=== PATIENT | male | born 1995 | race Hispanic/Latino ===

== ENCOUNTER 2018-05-08 21:40 | Emergency (ER) | payer SELFPAY ==
[2018-05-08] MEDS ORDERED: TETANUS/DIPHTHERIA TOXOID [ADULT] 0.5 ML VIAL IM ONE (21:53)
== END 2018-05-08 23:27 | disposition home or self-care (01) ==
LOC: EDH 21:40
DX: S91.331A Puncture wound without foreign body, right foot, initial encounter (principal); E11.9 Type 2 diabetes mellitus without complications; X58.XXXA Exposure to other specified factors, initial encounter; Y93.89 Activity, other specified; Y92.89 Other specified places as the place of occurrence of the external cause; Y99.8 Other external cause status
CPT/HCPCS: 73630; 90471; 90714

== ENCOUNTER 2019-03-23 16:43 | Inpatient (IN) | payer SELFPAY ==
[~2019-03-23] VITALS: Ht 167.6 cm; Wt 91.7 kg
[2019-03-23 17:36] LABS: BASOPHILS % (AUTO) 0.3 % (0.0-5.0); EOSINOPHILS % (AUTO) 0.2 % (0.0-8.0); HEMATOCRIT 46.1 % (42-54); LYMPHOCYTES % (AUTO) 13.8 % (21.0-51.0); MEAN CORPUSCULAR VOLUME 89.3 fL (79-99); MONOCYTES % (AUTO) 3.8 % (3.0-13.0); NEUTROPHILS % (AUTO) 81.9 % (40.0-77.0); NUCLEATED RED BLOOD CELLS 0.1 % (0.0-0.19); PLATELET COUNT (AUTO) 279 K/uL (130-400); RED BLOOD CELL COUNT(AUTO) 5.16 MIL/uL (4.50-6.20); RED CELL DISTRIBUTION WIDTH 14.2 % (11.0-15.5); WHITE BLOOD COUNT (AUTO) 20.1 K/uL (4.8-10.8)
[2019-03-23] MEDS ORDERED: SODIUM CHLORIDE 0.9% 1000ML 1,000 ML IV ONE ×3 (17:36→22:20)
[2019-03-23] MEDS ORDERED: ONDANSETRON HCL 4 MG/2 ML VIAL ONE (17:36)
[2019-03-23 17:39] LABS: APPEARANCE,URINE Clear (CLEAR); BILIRUBIN,URINE Negative (NEGATIVE); COLOR,URINE Yellow (YELLOW); GLUCOSE, URINE (UA) >=1000 mg/dL (NEGATIVE); KETONES,URINE >=160 mg/dL (NEGATIVE); LEUKOCYTE ESTERASE ,URINE Negative (NEGATIVE); NITRATE,URINE Negative (NEGATIVE); OCCULT BLOOD,URINE Moderate (NEGATIVE); PROTEIN,URINE POS 2+ mg/dL (NEGATIVE); UROBILINOGEN,URINE 0.2 mg/dL (0.2-1.0)
[2019-03-23 17:51] LABS: POTASSIUM 4.2 mmol/L (3.5-5.1)
[2019-03-23 17:54] LABS: MEAN CORPUSCULAR HEMOGLOBIN 35.4 pg (27.0-33.0); MEAN CORPUSCULAR HGB CONC 39.8 g/dL (32.0-36.0)
[2019-03-23 17:57] LABS: BILIRUBIN,TOTAL 1.1 mg/dL (0.2-1.0)
[2019-03-23 18:04] LABS: BACTERIA,URINE Rare /HPF (None Seen); SQUAMOUS EPITHELIAL CELL,UR Few /HPF (0-2); WBC,URINE 0-1 /HPF (0-1)
[2019-03-23 18:55] LABS: CREATININE 0.8 mg/dL (0.5-1.5); TOTAL PROTEIN, SERUM 7.6 g/dL (6.0-8.3)
[2019-03-23 18:57] LABS: ALBUMIN 4.2 g/dL (3.5-5.0)
[2019-03-23] MEDS ORDERED: KETOROLAC TROMETHAMINE 30MG/ML ONE (18:58)
[2019-03-23 19:13] LABS: ABG BASE EXCESS -6.4 mmol/L (-2.0-3.0); ABG HCO3 17.7 mmol/L (21.0-28.0); ABG OXYGEN SATURATION 96.3 % (95.0-99.0); ABG PCO2 32 mmHg (35-48)
[2019-03-23] MEDS: SODIUM CHLORIDE 0.9% 1000ML 1,000 ML IV SCH (21:41)
[2019-03-23] MEDS ORDERED: MORPHINE SULFATE 2 MG/ML 1ML SYG IM PRN (21:45)
[2019-03-23 22:12] LABS: HEMOGLOBIN A1C 10.7 % (4.0-6.0)
[2019-03-23] MEDS ORDERED: MORPHINE SULFATE 2 MG/ML 1ML SYG ONE (22:20)
[2019-03-23 23:00] VITALS: BP 145/81
[2019-03-23] MEDS ORDERED: INSU100I14 SQ (23:35)
[2019-03-23] MEDS ORDERED: METF-527 PO (23:35)
[2019-03-23] MEDS ORDERED: INSU10VI2 SQ (23:37)
[2019-03-24 04:00] VITALS: BP 126/71
[2019-03-24 04:34] LABS: BASOPHILS % (AUTO) 0.7 % (0.0-5.0); EOSINOPHILS % (AUTO) 0.4 % (0.0-8.0); HEMATOCRIT 42.3 % (42-54); LYMPHOCYTES % (AUTO) 21.9 % (21.0-51.0); MEAN CORPUSCULAR HEMOGLOBIN 34.8 pg (27.0-33.0); MEAN CORPUSCULAR HGB CONC 39.1 g/dL (32.0-36.0); MONOCYTES % (AUTO) 5.1 % (3.0-13.0); NEUTROPHILS % (AUTO) 71.9 % (40.0-77.0); NUCLEATED RED BLOOD CELLS 0.1 % (0.0-0.19); PLATELET COUNT (AUTO) 232 K/uL (130-400); RED BLOOD CELL COUNT(AUTO) 4.76 MIL/uL (4.50-6.20); RED CELL DISTRIBUTION WIDTH 14.5 % (11.0-15.5); WHITE BLOOD COUNT (AUTO) 17.1 K/uL (4.8-10.8)
[2019-03-24 04:59] LABS: ALBUMIN 3.2 g/dL (3.5-5.0); BILIRUBIN,TOTAL 0.7 mg/dL (0.2-1.0); CREATININE 0.7 mg/dL (0.5-1.5); POTASSIUM 4.3 mmol/L (3.5-5.1); TOTAL PROTEIN, SERUM 7.6 g/dL (6.0-8.3)
[2019-03-24] MEDS: INSULIN HUMULIN R 100 UNIT/ML 3ML SQ SCH ×4 (06:48→21:27)
[2019-03-24 07:00] VITALS: BP 133/65
[2019-03-24] MEDS ORDERED: FLU VACC QUAD 2019-20(6MOS UP) 60 MCG/0.5 ML VIAL IM SCH (09:00)
[2019-03-24] MEDS: FAMOTIDINE/PF 20 MG/2 ML VIAL IV SCH ×2 (09:25→19:55)
[2019-03-24] MEDS: ENOXAPARIN SODIUM 30 MG/0.3 ML SQ SCH (09:25)
[2019-03-24] MEDS: SODIUM CHLORIDE 0.9% 1000ML 1,000 ML IV SCH (09:30)
[2019-03-24 11:00] VITALS: BP 131/74
[2019-03-24 13:47] LABS: CHOLESTEROL 162 mg/dL (<200); HDL CHOLESTEROL 33 mg/dL (29-71); LDL DIRECT 36 mg/dL (0-99); TRIGLYCERIDES 594 mg/dL (30-200)
[2019-03-24] MEDS: CEFTRIAXONE SODIUM 1 GM IVP SCH (14:47)
[2019-03-24] MEDS: LACTATED RINGERS 1000ML 1,000 ML IV SCH ×2 (14:48→19:55)
[2019-03-24 16:00] VITALS: BP 137/72
--- NOTE | 2019-03-24 16:00 | NUR ---
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 FAMILY ATTENTIVE TO NEEDS, MOM STATES TAKES TO FREE ROBERT IN [facility] OF [facility]. SELF PAY PKT DISCUSSED DIABETIC SELF MANAGEMENT DISCUSSED CM TO FOLLOW NEEDED Addendum: 03/24/19 at 1946 by MARQUIS NEVAREZ RN CM Amended: Links added.
[2019-03-24 19:00] VITALS: BP 126/67
[2019-03-25] VITALS: BP 137/77
[2019-03-25] MEDS: LACTATED RINGERS 1000ML 1,000 ML IV SCH ×2 (02:40→11:12)
[2019-03-25 04:00] VITALS: BP 121/71
[2019-03-25 05:53] LABS: HEMATOCRIT 42.7 % (42-54); MEAN CORPUSCULAR HGB CONC 34.4 g/dL (32.0-36.0); MEAN CORPUSCULAR VOLUME 90.1 fL (79-99); PLATELET COUNT (AUTO) 158 K/uL (130-400); RED BLOOD CELL COUNT(AUTO) 4.73 MIL/uL (4.50-6.20); RED CELL DISTRIBUTION WIDTH 14.4 % (11.0-15.5); WHITE BLOOD COUNT (AUTO) 12.6 K/uL (4.8-10.8)
[2019-03-25 06:03] LABS: CREATININE 0.8 mg/dL (0.5-1.5)
[2019-03-25] MEDS: INSULIN HUMULIN R 100 UNIT/ML 3ML SQ SCH ×2 (06:40→11:30)
[2019-03-25 07:00] VITALS: BP 123/65
[2019-03-25] MEDS: FAMOTIDINE/PF 20 MG/2 ML VIAL IV SCH (09:00)
[2019-03-25] MEDS: ENOXAPARIN SODIUM 30 MG/0.3 ML SQ SCH (09:00)
[2019-03-25 11:00] VITALS: BP 111/69
[2019-03-25] MEDS: CEFTRIAXONE SODIUM 1 GM IVP SCH (14:53)
[2019-03-25 16:00] VITALS: BP 138/81
[2019-03-25] MEDS ORDERED: NPH,100V11 SQ (18:06)
[2019-03-25] MEDS ORDERED: FENO145T37 PO (18:06)
[2019-03-25] MEDS ORDERED: INSREG SQ (18:06)
== END 2019-03-25 19:38 | disposition home or self-care (01) | DRG 439 ==
LOC: EDH 16:43 → EDHIP 16:44 → 3AH 22:31
PROVIDERS: ADMIT Internal Medicine; ATTEND Internal Medicine
DX: K85.90 Acute pancreatitis without necrosis or infection, unspecified (principal); E87.1 Hypo-osmolality and hyponatremia; E11.65 Type 2 diabetes mellitus with hyperglycemia; E66.9 Obesity, unspecified; Z79.4 Long term (current) use of insulin; Z68.32 Body mass index [BMI] 32.0-32.9, adult
CPT/HCPCS: 36415; 36600; 74176; 80048; 80053; 80061; 81001; 82010; 82150; 82803; 82948; 83036; 83690; 85025; 85027; 87804; G0378; J0696; J1650; J1815; J1885; J2405; J3490; J7030; J7120; Q2036

== ENCOUNTER 2019-03-28 14:52 | Emergency (ER) | payer OTHER ==
[~2019-03-28 14:52] MED LIST: FENO145T37 PO; INSREG SQ; METF-527 PO; NPH,100V11 SQ
[2019-03-28] MEDS ORDERED: DiphenhydrAMINE HCL 50 MG/ML VIAL ONE (15:26)
[2019-03-28] MEDS ORDERED: SODIUM CHLORIDE 0.9% 1000ML 1,000 ML IV ONE ×2 (15:26→16:56)
[2019-03-28] MEDS ORDERED: PROCHLORPERAZINE EDISYLATE 10 MG/2 ML VIAL ONE (15:26)
[2019-03-28 15:29] LABS: APPEARANCE,URINE Clear (CLEAR); BILIRUBIN,URINE Negative (NEGATIVE); COLOR,URINE Yellow (YELLOW); GLUCOSE, URINE (UA) >=1000 mg/dL (NEGATIVE); KETONES,URINE >=80 mg/dL (NEGATIVE); LEUKOCYTE ESTERASE ,URINE Trace (NEGATIVE); NITRATE,URINE Negative (NEGATIVE); OCCULT BLOOD,URINE Negative (NEGATIVE); PROTEIN,URINE POS 1+ mg/dL (NEGATIVE)
[2019-03-28 15:35] LABS: AMPHET/METH SCREEN,URINE NEGATIVE (NEGATIVE); BARBITURATE SCREEN, URINE NEGATIVE (NEGATIVE); BENZODIAZEPINES SCREEN,URINE NEGATIVE (NEGATIVE); CANNABINOID SCREEN,URINE NEGATIVE (NEGATIVE); COCAINE SCREEN,URINE NEGATIVE (NEGATIVE); OPIATE SCREEN,URINE NEGATIVE (NEGATIVE); PHENCYCLIDINE SCREEN,URINE NEGATIVE (NEGATIVE)
[2019-03-28 15:39] LABS: BASOPHILS % (AUTO) 0.4 % (0.0-5.0); EOSINOPHILS % (AUTO) 0.2 % (0.0-8.0); HEMATOCRIT 46.5 % (42-54); LYMPHOCYTES % (AUTO) 10.5 % (21.0-51.0); MEAN CORPUSCULAR HEMOGLOBIN 30.4 pg (27.0-33.0); MEAN CORPUSCULAR HGB CONC 34.5 g/dL (32.0-36.0); MEAN CORPUSCULAR VOLUME 88.2 fL (79-99); MONOCYTES % (AUTO) 3.4 % (3.0-13.0); NEUTROPHILS % (AUTO) 85.5 % (40.0-77.0); PLATELET COUNT (AUTO) 204 K/uL (130-400); RED BLOOD CELL COUNT(AUTO) 5.27 MIL/uL (4.50-6.20); RED CELL DISTRIBUTION WIDTH 14.1 % (11.0-15.5); WHITE BLOOD COUNT (AUTO) 13.8 K/uL (4.8-10.8)
[2019-03-28 16:02] LABS: CREATININE 0.5 mg/dL (0.5-1.5); POTASSIUM 3.7 mmol/L (3.5-5.1)
[2019-03-28 16:06] LABS: ALBUMIN 3.7 g/dL (3.5-5.0); BILIRUBIN,TOTAL 0.5 mg/dL (0.2-1.0); TOTAL PROTEIN, SERUM 8.3 g/dL (6.0-8.3)
[2019-03-28 16:34] LABS: BACTERIA,URINE Few /HPF (None Seen); CALCIUM OXALATE CRYSTALS,UR Few /LPF (None Seen); RBC,URINE 0-1 /HPF (0-1); SQUAMOUS EPITHELIAL CELL,UR Few /HPF (0-2)
[2019-03-28 17:02] LABS: ABG OXYGEN SATURATION 87.6 % (95.0-99.0); BASE EXCESS,VENOUS BLOOD GAS -5.3 (-2.0-3.0); HCO3,VENOUS BLOOD GAS 19.7 (21.0-28.0); PCO2,VENOUS BLOOD GAS 37 (35-48); PH,VENOUS BLOOD GAS 7.348 (7.350-7.450)
== END 2019-03-28 18:01 | disposition home or self-care (01) ==
LOC: EDH 14:52
DX: E11.65 Type 2 diabetes mellitus with hyperglycemia (principal); R11.2 Nausea with vomiting, unspecified; Z79.4 Long term (current) use of insulin; Z72.0 Tobacco use
CPT/HCPCS: 36415; 36600; 80053; 80305; 81001; 82150; 82803; 83690; 85025; 96361; 96374; 96375; 99284; J0780; J1200; J7030 ×2

== ENCOUNTER 2019-09-20 16:03 | Inpatient (IN) | payer SELFPAY ==
[~2019-09-20] VITALS: Ht 167.6 cm; Wt 89.9 kg
[~2019-09-20 16:03] MED LIST changes: +FENO145T26 PO; -FENO145T37 PO
[2019-09-20] MEDS ORDERED: METOCLOPRAMIDE 10 MG/2 ML VIAL ONE (16:20)
[2019-09-20] MEDS ORDERED: FAMOTIDINE/PF 20 MG/2 ML VIAL IV ONE ×2 (16:21→20:21)
[2019-09-20] MEDS ORDERED: ONDANSETRON HCL 4 MG/2 ML VIAL ONE ×2 (16:21→22:05)
[2019-09-20] MEDS ORDERED: SODIUM CHLORIDE 0.9% 1000ML 1,000 ML IV ONE ×4 (16:22→21:48)
[2019-09-20 17:03] LABS: APPEARANCE,URINE Clear (CLEAR); BILIRUBIN,URINE Negative (NEGATIVE); COLOR,URINE Yellow (YELLOW); GLUCOSE, URINE (UA) >=1000 mg/dL (NEGATIVE); KETONES,URINE >=160 mg/dL (NEGATIVE); LEUKOCYTE ESTERASE ,URINE Negative (NEGATIVE); NITRATE,URINE Negative (NEGATIVE); OCCULT BLOOD,URINE Small (NEGATIVE); PROTEIN,URINE 300 mg/dL (NEGATIVE); UROBILINOGEN,URINE 0.2 mg/dL (0.2-1.0)
[2019-09-20 17:06] LABS: POTASSIUM 4.8 mmol/L (3.5-5.1)
[2019-09-20 17:27] LABS: ABG OXYGEN SATURATION 41.5 % (95.0-99.0); BASE EXCESS,VENOUS BLOOD GAS -22.6 (-2.0-3.0); HCO3,VENOUS BLOOD GAS 6.8 (21.0-28.0); PCO2,VENOUS BLOOD GAS 26 (35-48); PH,VENOUS BLOOD GAS 7.038 (7.350-7.450)
[2019-09-20 17:27] LABS: BACTERIA,URINE Rare /HPF (None Seen); RBC,URINE 0-1 /HPF (0-1); SQUAMOUS EPITHELIAL CELL,UR Few /HPF (0-2); WBC,URINE 0-1 /HPF (0-1)
[2019-09-20 17:35] LABS: LYMPHOCYTES % (AUTO) 13.7 % (21.0-51.0); NEUTROPHILS % (AUTO) 76.5 % (40.0-77.0); PLATELET COUNT (AUTO) 241 K/uL (130-400); RED BLOOD CELL COUNT(AUTO) 4.95 MIL/uL (4.50-6.20); WHITE BLOOD COUNT (AUTO) 21.5 K/uL (4.8-10.8)
[2019-09-20 17:36] LABS: BASOPHILS % (AUTO) 0.6 % (0.0-5.0)
[2019-09-20] MEDS ORDERED: INSULIN HUMULIN R 100 UNIT/ML 3ML ONE ×2 (17:36→19:29)
[2019-09-20 17:37] LABS: HEMATOCRIT 35.1 % (42-54); MEAN CORPUSCULAR HEMOGLOBIN 32.3 pg (27.0-33.0); MEAN CORPUSCULAR HGB CONC 35.6 g/dL (32.0-36.0); MEAN CORPUSCULAR VOLUME 90.7 fL (79-99)
[2019-09-20 17:44] LABS: BILIRUBIN,TOTAL 0.2 mg/dL (0.2-1.0); TOTAL PROTEIN, SERUM 6.8 g/dL (6.0-8.3)
[2019-09-20] MEDS ORDERED: MORPHINE SULFATE 4 MG/1ML SYG ONE (20:20)
[2019-09-20] MEDS: PHARMACY COMMUNICATION MISC SCH (20:30)
[2019-09-20] MEDS ORDERED: ACETAMINOPHEN 650 MG SUPPOSITORY RC PRN ×2 (20:30→22:00)
[2019-09-20 20:51] LABS: MAGNESIUM 1.6 mg/dL (1.80-2.40)
[2019-09-20 21:08] LABS: PHOSPHORUS 4.6 mg/dL (2.5-4.9)
[2019-09-20 21:33] LABS: ABG OXYGEN SATURATION 19.8 % (95.0-99.0); BASE EXCESS,VENOUS BLOOD GAS -24.6 (-2.0-3.0); PCO2,VENOUS BLOOD GAS 33 (35-48); PH,VENOUS BLOOD GAS < 6.960 (7.350-7.450)
[2019-09-20] MEDS ORDERED: SODIUM BICARB 50MEQ 50ML VIAL ONE (21:38)
[2019-09-20] MEDS: SODIUM CHLORIDE 0.9% 1000ML 1,000 ML IV SCH (21:43)
[2019-09-20] MEDS ORDERED: SODIUM CHLORIDE 0.9% 1000ML 1,000 ML IV SCH (21:43)
[2019-09-20] MEDS ORDERED: DEXTROSE 5 %-0.45 % NACL 1,000 ML IV PRN (21:43)
[2019-09-20] MEDS: INSULIN HUMULIN R 100 UNIT/ML 3ML IV SCH (21:45)
[2019-09-20 22:00] LABS: HEMOGLOBIN A1C 13.6 % (4.0-6.0)
[2019-09-20] MEDS ORDERED: MAGNESIUM 2GM PREMIX 50ML 50 ML IV ONE (22:00)
[2019-09-20] MEDS ORDERED: DiphenhydrAMINE HCL 50 MG/ML VIAL IV PRN (22:00)
[2019-09-20] MEDS ORDERED: LACTATED RINGERS 1000ML 2,000 ML IV ONE (22:00)
[2019-09-20] MEDS ORDERED: NITROGLYCERIN 0.4 MG SL TAB SL PRN (22:00)
[2019-09-20 22:06] LABS: LIPASE 311 U/L (114-286)
[2019-09-20 22:33] LABS: AMYLASE 59 U/L (25-115)
[2019-09-20] MEDS ORDERED: SODIUM CHLORIDE 0.9% 100 ML IV ONE (22:35)
[2019-09-20 22:42] LABS: TRIGLYCERIDES 3687 mg/dL (30-200)
[2019-09-20 22:45] LABS: MAGNESIUM 1.7 mg/dL (1.80-2.40); POTASSIUM 4.1 mmol/L (3.5-5.1)
[2019-09-20] MEDS ORDERED: MAGNESIUM 2GM PREMIX 50ML 50 ML IV SCH (22:45)
[2019-09-20] MEDS: CALCIUM CHLORIDE 100 MG/ML 10 ML SYG IVP SCH (22:45)
[2019-09-20] MEDS ORDERED: CEFTRIAXONE SODIUM 1 GM ONE (22:52)
[2019-09-20 22:56] LABS: CREATININE 0.9 mg/dL (0.5-1.5)
[2019-09-20 23:45] VITALS: BP 141/80
[2019-09-21] VITALS (28 sets, daily range): BP systolic 130–174; BP diastolic 65–111
--- NOTE | 2019-09-21 | NUR ---
ADMITTED FROM ER AT 2345. AWAKE, ALERT AND ORIENTED. NO C/O PAIN, SOB. STATES HAS HAD A COUGH. PLACED ON DROPLET PRECAUTIONS.
[2019-09-21 00:27] LABS: ABG OXYGEN SATURATION 49.6 % (95.0-99.0); BASE EXCESS,VENOUS BLOOD GAS -14.1 (-2.0-3.0); HCO3,VENOUS BLOOD GAS 12.3 (21.0-28.0); PCO2,VENOUS BLOOD GAS 31 (35-48); PH,VENOUS BLOOD GAS 7.216 (7.350-7.450)
[2019-09-21] MEDS: PHARMACY COMMUNICATION MISC SCH ×2 (00:30→04:30)
--- NOTE | 2019-09-21 01:31 | NUR ---
Hospitalist publications production supervisor MEDHAT NO here to see patient. Patient denies pain, sob. Voided 900 mls clear yellow urine.
[2019-09-21] MEDS: SODIUM CHLORIDE 0.9% 1000ML 1,000 ML IV SCH (01:44)
[2019-09-21] MEDS ORDERED: FAMOTIDINE/PF 20 MG/2 ML VIAL IV SCH ×2 (01:45→09:00)
[2019-09-21] MEDS ORDERED: SODIUM CHLORIDE 3% FOR INHALATION 4 ML/AMP VIAL.NEB IH ONE ×2 (01:49→07:54)
[2019-09-21] MEDS ORDERED: FAMOTIDINE/PF 20 MG/2 ML VIAL IV ONE (01:55)
[2019-09-21 02:19] LABS: POTASSIUM 3.6 mmol/L (3.5-5.1)
[2019-09-21 02:22] LABS: CREATININE 0.8 mg/dL (0.5-1.5); PHOSPHORUS 3.1 mg/dL (2.5-4.9)
[2019-09-21 02:23] LABS: MAGNESIUM 2.04 mg/dL (1.80-2.40)
[2019-09-21] MEDS ORDERED: MORPHINE SULFATE 4 MG/1ML SYG ONE (03:47)
--- NOTE | 2019-09-21 04:00 | NUR ---
ALL LABS CALLED TO DR TRINH INCLUDING 0400 VBG. NO NEW ORDERS
[2019-09-21 04:09] LABS: ABG OXYGEN SATURATION 35.6 % (95.0-99.0); HCO3,VENOUS BLOOD GAS 12.7 (21.0-28.0); PCO2,VENOUS BLOOD GAS 33 (35-48); PH,VENOUS BLOOD GAS 7.205 (7.350-7.450)
[2019-09-21] MEDS: AZITHROMYCIN 500MG+NS 250ML 250 ML IV SCH (04:42)
[2019-09-21 05:09] LABS: HEMATOCRIT 38.9 % (42-54); MEAN CORPUSCULAR VOLUME 89.2 fL (79-99); PLATELET COUNT (AUTO) 200 K/uL (130-400); RED BLOOD CELL COUNT(AUTO) 4.36 MIL/uL (4.50-6.20); RED CELL DISTRIBUTION WIDTH 14.6 % (11.0-15.5)
[2019-09-21 06:09] LABS: MEAN CORPUSCULAR HEMOGLOBIN 40.6 pg (27.0-33.0); MEAN CORPUSCULAR HGB CONC 45.1 g/dL (32.0-36.0)
[2019-09-21 06:35] LABS: POTASSIUM 3.6 mmol/L (3.5-5.1)
[2019-09-21 06:36] LABS: CREATININE 0.9 mg/dL (0.5-1.5); MAGNESIUM 1.8 mg/dL (1.80-2.40)
[2019-09-21 07:40] LABS: LYMPHOCYTES % (MANUAL) 28 % (22-44); MAN.DIFF COMMENT-IMPRESSION MANUAL DIFFERENTIAL; MONOCYTES % (MANUAL) 3 % (2-9); PLATELET MORPHOLOGY COMMENT ADEQUATE; SEGMENTED NEUTROPHILS % 69 % (40-70)
[2019-09-21] MEDS: ONDANSETRON HCL 4 MG/2 ML VIAL IVP PRN (07:42)
[2019-09-21] MEDS: MORPHINE SULFATE 4 MG/1ML SYG IV PRN ×4 (07:43→22:22)
[2019-09-21 08:53] LABS: ABG BASE EXCESS -16.6 mmol/L (-2.0-3.0); ABG HCO3 10.1 mmol/L (21.0-28.0); ABG OXYGEN SATURATION 89.5 % (95.0-99.0); ABG PCO2 28 mmHg (35-48)
--- NOTE | 2019-09-21 08:55 | NUR ---
BICARB LEVEL DR. TRINH NOTIFIED OF BICARB LEVEL AT THIS TIME. HE STATED HE WILL BE BY TO SEE PATIENT AND ENTER NEW ORDERS. PATIENT IS STABLE AT THIS TIME.
[2019-09-21] MEDS ORDERED: CEFTRIAXONE SODIUM 1 GM IV SCH (09:00)
[2019-09-21] MEDS ORDERED: CEFTRIAXONE SODIUM 500 MG VIAL IV SCH (09:00)
[2019-09-21] MEDS: ENOXAPARIN SODIUM 80 MG/0.8 ML SQ SCH (09:07)
[2019-09-21] MEDS: PANTOPRAZOLE 40 MG/VIAL IVP SCH ×2 (09:07→21:17)
[2019-09-21] MEDS: INSULIN REGULAR, HUMAN 3ML 100 UNIT in SODIUM CHLORIDE 0.9% 99 ML IV PRN ×2 (09:08)
[2019-09-21] MEDS: CEFTRIAXONE SODIUM 1 GM IV SCH (09:13)
[2019-09-21 09:23] LABS: MAGNESIUM 2.1 mg/dL (1.80-2.40)
[2019-09-21] MEDS: D5W-1/2 NS/20MEQ KCL 1,000 ML IV SCH ×3 (09:38→17:15)
[2019-09-21 09:55] LABS: CREATININE 0.8 mg/dL (0.5-1.5); PHOSPHORUS 2.5 mg/dL (2.5-4.9)
--- NOTE | 2019-09-21 09:59 | NUR ---
POTASSIUM LEVEL. DR. TRINH NOTIFIED OF PATIENT'S POTASSIUM LEVEL OF 3.0. HE HAS BEEN MADE AWARE THAT INSULIN DRIP PER PROTOCOL MUST BE HELD UNTIL POTASSIUM LEVEL INCREASES. HE WAS ALSO INFORMED OF CO2 LEVEL OF 7.
[2019-09-21] MEDS: POTASSIUM CHLORIDE 10MEQ/100ML 100 ML IV PRN ×9 (10:02→22:49)
[2019-09-21] MEDS: NS-20 MEQ KCL 1000ML 1,000 ML IV SCH ×2 (11:06→16:17)
--- NOTE | 2019-09-21 11:10 | NUR ---
BEDSIDE ROUNDS DR. TRINH AT BEDSIDE TO SEE AND EXAMINE PATIENTS. HE CHANGED ORDER OF D5 1/2 NS WITH 20 MEQ OF K TO NS WITH 20MEQ OF K AT SAME RATE. HE STATED TO WAIT FOR THE ADDITIONAL 40 MEQ OF K TO BE INFUSED, AND TO NOTIFY HIM OF RECHECK RESULT TO SEE IF INSULIN DRIP CAN BE RESTARTED. CT ABDOMEN WAS ALSO ORDERED.
[2019-09-21 13:12] LABS: ABG OXYGEN SATURATION 82.1 % (95.0-99.0); BASE EXCESS,VENOUS BLOOD GAS -22.7 (-2.0-3.0); HCO3,VENOUS BLOOD GAS 5.7 (21.0-28.0); PCO2,VENOUS BLOOD GAS 20 (35-48); PH,VENOUS BLOOD GAS 7.071 (7.350-7.450)
--- NOTE | 2019-09-21 13:20 | NUR ---
BICARB LEVEL DR. TRINH WAS INFORMED OF BICARB LEVEL OF 5.7 VIA VENOUS BLOOD GAS. HE STATED HE WANTS TO BE INFORMED OF POTASSIUM LEVEL BEFORE GIVING ORDERS FOR BICARB. POTASSIUM LEVELS ARE STILL PENDING TO BE RESULTED.
[2019-09-21 13:24] LABS: CRP QUANTITATIVE 47.8 mg/L (0.00-9.0); MAGNESIUM 2.2 mg/dL (1.80-2.40)
[2019-09-21 13:45] LABS: PHOSPHORUS 2.8 mg/dL (2.5-4.9)
--- NOTE | 2019-09-21 14:00 | NUR ---
DR TRINH NOTIFIED VIA PHONE ABOUT LATEST LABS, INCLUDING CO2 8, LAB GLUCOSE 421, RECHECKED GLUCOSE PER GLUCOMETER : 236, LATEST POTASSIUM LEVEL 4.0, RESTARTED INSULIN DRIP AT 5 UNITS/HR, PER PROTOCOL, NO NEW ORDERS GIVEN AT THIS TIME.
[2019-09-21] MEDS ORDERED: SODIUM BICARB 8.4% 50ML SYRING 150 MEQ in SODIUM CHLORIDE 0.9% 1000ML 1,000 ML IV SCH (14:30)
--- NOTE | 2019-09-21 14:30 | NUR ---
PAIN MEDICATION PATIENT AND HIS MOTHER NOTIFIED THAT PAIN MEDICATION IS NOT DUE UNTIL 1600, IT WAS PREVIOUSLY GIVEN AT 1155. PATIENT WAS REPOSITIONED IN BED AND WAS ABLE TO ALLEVIATE SOME ABDOMINAL PAIN.
--- NOTE | 2019-09-21 14:49 | NUR ---
RD Notification Pt admitted with DKA. Pt currently in ICU. RD to follow up with Diabetes nutrition education once Pt is medically stable. When medically stable, Recommend to advance diet as tolerated to 60gm CCD, Low fat diet order. Pt with Class I obesity (BMI 33.4). Pt with altered BG (208), Lipase (5611), Amylase(595) levels. RD to continue to monitor. Please notify RD as additional nutrition concerns arise. Thank you. Addendum: 09/21/19 at [address] Amended: Links added.
[2019-09-21 16:29] LABS: ABG OXYGEN SATURATION 91.8 % (95.0-99.0); BASE EXCESS,VENOUS BLOOD GAS -19.5 (-2.0-3.0); HCO3,VENOUS BLOOD GAS 6.1 (21.0-28.0); PCO2,VENOUS BLOOD GAS 16 (35-48); PH,VENOUS BLOOD GAS 7.195 (7.350-7.450)
[2019-09-21 16:44] LABS: POTASSIUM 3.4 mmol/L (3.5-5.1)
[2019-09-21 17:00] LABS: CREATININE 0.8 mg/dL (0.5-1.5)
--- NOTE | 2019-09-21 17:00 | NUR ---
CRITICAL LAB VALUES DR. TRINH NOTIFIED OF BICARB LEVEL OF 6.1 AND POTASSIUM OF 3.4. HE STATED HE WILL NOT GIVE ANY ORDERS FOR ANY MORE BICARB INFUSION AT THIS TIME, BUT STATED TO CONTINUE WITH INSULIN DRIP AND POTASSIUM COVERAGE. HE ALSO WAS NOTIFIED OF NS WITH 20 MEQ STILL INFUSING AND ORDERED TO SWITCH BACK TO D51/2NS WITH 20 MEQ OF POTASSIUM, PER PROTOCOL. HE WAS MADE AWARE OF PATIENT'S SHORTNESS OF BREATH AND WAS ADVISED THAT CT SCAN WOULD BE BETTER OFF DONE TOMORROW IF BREATHING IMPROVES. HE STATED TO ORDER US OF ABDOMEN TO BE DONE AT BEDSIDE. ORDERS READ BACK AND ENTERED INTO THE COMPUTER.
--- NOTE | 2019-09-21 17:55 | NUR ---
CRITICAL RESULTS DR. TRINH NOTIFIED OF PATIENT'S BICARB LEVEL [place] 6.1 [place] [address]. HE STATED TO START PATIENT ON NS AT 100ML/HR ALONG WITH D5 1/2NS INFUSION. HE ALSO ORDERED TRIGLYCERIDE LEVEL THAT WAS ENTERED INTO THE SYSTEM. CALCIUM REPLACEMENT WAS ALSO ORDERED AND ENTERED INTO THE SYSTEM.
[2019-09-21 17:58] LABS: MAGNESIUM 2.4 mg/dL (1.80-2.40)
[2019-09-21 18:14] LABS: PHOSPHORUS 2.2 mg/dL (2.5-4.9)
[2019-09-21] MEDS ORDERED: LACTATED RINGERS 1000ML 1,000 ML IV SCH (18:30)
--- NOTE | 2019-09-21 18:31 | NUR ---
DC PLAN VISITED WITH PATIENT. PATIENT LIVES WITH BROTHER. INDEPENDENT ABLE TO PERFORM ADL'S. PATIENT HAS NO SERVICES OR DME'S. FEELS SAFE TO RETURN HOME. LOW INCOME CLINIC INFO GIVEN INCLUDING INFO REGARDING GETTING A GLUCOSE COMPOSING MACHINE OPERATOR/TENDER FROM [facility] FOR 25. Addendum: 09/21/19 at 1833 by KELLI PIERSON RN CM Amended: Links added.
[2019-09-21] MEDS ORDERED: CALCIUM GLUCONATE 1 GM/10 ML VIAL IV SCH (19:45)
--- NOTE | 2019-09-21 19:45 | NUR ---
Dr. Greenwood at bedside and updated on patient status. Patient tachycardic at this time. 2 liters LR ordered and given. Other lab orders entered into system and carried out. Dr. Greenwood talked to patient and family about patient's status and all questions answered.
[2019-09-21] MEDS ORDERED: LACTATED RINGERS 1000ML IV STA (20:00)
[2019-09-21] MEDS: LACTATED RINGERS 1000ML 1,000 ML IV SCH (20:09)
[2019-09-21] MEDS: POTASSIUM PHOS 15 mMOL+NS250ML 250 ML IV PRN (21:17)
[2019-09-21 21:34] LABS: MAGNESIUM 2.1 mg/dL (1.80-2.40); PHOSPHORUS 1.4 mg/dL (2.5-4.9); POTASSIUM 3.6 mmol/L (3.5-5.1)
[2019-09-21] MEDS: INSULIN HUMULIN R 100 UNIT/ML 3ML IV SCH (21:45)
[2019-09-21] MEDS: CALCIUM CHLORIDE 100 MG/ML 10 ML SYG IVP SCH (22:49)
[2019-09-22] VITALS (23 sets, daily range): BP systolic 132–177; BP diastolic 70–97
[2019-09-22 00:50] LABS: ABG OXYGEN SATURATION 96.9 % (95.0-99.0); HCO3,VENOUS BLOOD GAS 11.1 (21.0-28.0); PCO2,VENOUS BLOOD GAS 25 (35-48); PH,VENOUS BLOOD GAS 7.259 (7.350-7.450)
[2019-09-22] MEDS: POTASSIUM CHLORIDE 10MEQ/100ML 100 ML IV PRN ×3 (01:35→05:44)
[2019-09-22 01:56] LABS: CREATININE 0.9 mg/dL (0.5-1.5); PHOSPHORUS 1.6 mg/dL (2.5-4.9); POTASSIUM 3.6 mmol/L (3.5-5.1)
[2019-09-22] MEDS: AZITHROMYCIN 500MG+NS 250ML 250 ML IV SCH (04:29)
[2019-09-22] MEDS: LACTATED RINGERS 1000ML 1,000 ML IV SCH ×6 (04:30→20:47)
[2019-09-22] MEDS: D5W-1/2 NS/20MEQ KCL 1,000 ML IV SCH ×5 (04:30→20:47)
[2019-09-22 05:15] LABS: CREATININE 0.9 mg/dL (0.5-1.5); PHOSPHORUS 1.5 mg/dL (2.5-4.9); POTASSIUM 3.5 mmol/L (3.5-5.1)
[2019-09-22] MEDS: MORPHINE SULFATE 4 MG/1ML SYG IV PRN ×4 (05:24→22:59)
[2019-09-22] MEDS: ONDANSETRON HCL 4 MG/2 ML VIAL IVP PRN ×3 (05:24→18:37)
[2019-09-22 05:27] LABS: MAGNESIUM 1.9 mg/dL (1.80-2.40)
[2019-09-22] MEDS: PHARMACY COMMUNICATION MISC SCH (08:37)
[2019-09-22] MEDS: PANTOPRAZOLE 40 MG/VIAL IVP SCH ×2 (08:56→09:00)
[2019-09-22] MEDS: INSULIN REGULAR, HUMAN 3ML 100 UNIT in SODIUM CHLORIDE 0.9% 99 ML IV PRN ×2 (08:56)
[2019-09-22] MEDS: POTASSIUM PHOS 15 mMOL+NS250ML 250 ML IV PRN ×2 (08:57→16:56)
[2019-09-22] MEDS: CEFTRIAXONE SODIUM 1 GM IV SCH (10:23)
[2019-09-22 10:24] LABS: BAND NEUTROPHILS % (MANUAL) 30 % (0-2); LYMPHOCYTES % (MANUAL) 15 % (22-44); MAN.DIFF COMMENT-IMPRESSION MANUAL DIFFERENTIAL; MONOCYTES % (MANUAL) 4 % (2-9); SEGMENTED NEUTROPHILS % 51 % (40-70)
[2019-09-22] MEDS: ENOXAPARIN SODIUM 80 MG/0.8 ML SQ SCH (10:25)
[2019-09-22 10:28] LABS: PLATELET MORPHOLOGY COMMENT ADEQUATE
[2019-09-22 10:30] LABS: HEMATOCRIT 43.1 % (42-54); MEAN CORPUSCULAR HEMOGLOBIN 33.4 pg (27.0-33.0); MEAN CORPUSCULAR HGB CONC 38.3 g/dL (32.0-36.0); MEAN CORPUSCULAR VOLUME 87.2 fL (79-99); NUCLEATED RED BLOOD CELLS 0.1 % (0.0-0.19); PLATELET COUNT (AUTO) 257 K/uL (130-400); RED BLOOD CELL COUNT(AUTO) 4.94 MIL/uL (4.50-6.20); RED CELL DISTRIBUTION WIDTH 16.1 % (11.0-15.5); WHITE BLOOD COUNT (AUTO) 14.5 K/uL (4.8-10.8)
[2019-09-22 10:35] LABS: CREATININE 0.9 mg/dL (0.5-1.5); PHOSPHORUS 1.5 mg/dL (2.5-4.9); POTASSIUM 3.5 mmol/L (3.5-5.1)
[2019-09-22 14:04] LABS: ABG OXYGEN SATURATION 44.4 % (95.0-99.0); BASE EXCESS,VENOUS BLOOD GAS -11.7 (-2.0-3.0); HCO3,VENOUS BLOOD GAS 13.6 (21.0-28.0); PCO2,VENOUS BLOOD GAS 30 (35-48)
[2019-09-22 14:50] LABS: CREATININE 0.8 mg/dL (0.5-1.5); MAGNESIUM 1.9 mg/dL (1.80-2.40); PHOSPHORUS 1.8 mg/dL (2.5-4.9)
[2019-09-22] MEDS: MAGNESIUM 2GM PREMIX 50ML 50 ML IV PRN (15:36)
[2019-09-22] MEDS ORDERED: MAGNESIUM CITRATE 296 ML SOLUTION PO SCH (18:25)
--- NOTE | 2019-09-22 19:11 | NUR ---
HAND OFF REPORT WAS GIVEN TO NIKKY ALVARENGA.
[2019-09-22] MEDS ORDERED: SODIUM CHLORIDE 0.9% 1000ML 1,000 ML IV ONE (20:55)
[2019-09-22] MEDS: INSULIN HUMULIN R 100 UNIT/ML 3ML IV SCH (21:33)
[2019-09-22] MEDS: CALCIUM CHLORIDE 100 MG/ML 10 ML SYG IVP SCH (22:59)
[2019-09-22] MEDS ORDERED: BISACODYL 10 MG SUPP.RECT RC ONE ×2 (23:15→23:18)
[2019-09-23] VITALS (14 sets, daily range): BP systolic 116–151; BP diastolic 60–87
[2019-09-23 00:34] LABS: CREATININE 0.8 mg/dL (0.5-1.5); MAGNESIUM 2.3 mg/dL (1.80-2.40); PHOSPHORUS 1.2 mg/dL (2.5-4.9)
[2019-09-23] MEDS: POTASSIUM CHLORIDE 10MEQ/100ML 100 ML IV PRN ×5 (00:46→07:16)
[2019-09-23] MEDS: LACTATED RINGERS 1000ML 1,000 ML IV SCH ×7 (02:53→23:59)
[2019-09-23] MEDS: D5W-1/2 NS/20MEQ KCL 1,000 ML IV SCH ×4 (03:40→20:02)
[2019-09-23] MEDS: AZITHROMYCIN 500MG+NS 250ML 250 ML IV SCH (03:41)
[2019-09-23 05:34] LABS: HEMATOCRIT 40.7 % (42-54); MEAN CORPUSCULAR HEMOGLOBIN 30.9 pg (27.0-33.0); MEAN CORPUSCULAR HGB CONC 35.9 g/dL (32.0-36.0); PLATELET COUNT (AUTO) 157 K/uL (130-400); RED BLOOD CELL COUNT(AUTO) 4.73 MIL/uL (4.50-6.20); RED CELL DISTRIBUTION WIDTH 15.4 % (11.0-15.5); WHITE BLOOD COUNT (AUTO) 15.2 K/uL (4.8-10.8)
[2019-09-23 05:38] LABS: ALBUMIN 2.1 g/dL (3.5-5.0); BILIRUBIN,TOTAL 0.4 mg/dL (0.2-1.0); CREATININE 0.7 mg/dL (0.5-1.5); MAGNESIUM 2.1 mg/dL (1.80-2.40); PHOSPHORUS 0.8 mg/dL (2.5-4.9); POTASSIUM 3.5 mmol/L (3.5-5.1); TOTAL PROTEIN, SERUM 6.8 g/dL (6.0-8.3)
[2019-09-23 05:46] LABS: BAND NEUTROPHILS % (MANUAL) 44 % (0-2); LYMPHOCYTES % (MANUAL) 5 % (22-44); MAN.DIFF COMMENT-IMPRESSION MANUAL DIFFERENTIAL; METAMYELOCYTES % 6 % (0-0); MONOCYTES % (MANUAL) 1 % (2-9); MYELOCYTES % 1 % (0-0); SEGMENTED NEUTROPHILS % 43 % (40-70)
[2019-09-23 05:47] LABS: PLATELET MORPHOLOGY COMMENT ADEQUATE
[2019-09-23] MEDS: ONDANSETRON HCL 4 MG/2 ML VIAL IVP PRN (06:33)
[2019-09-23] MEDS: POTASSIUM PHOS 15 mMOL+NS250ML 250 ML IV PRN ×2 (06:42→18:24)
[2019-09-23] MEDS: INSULIN REGULAR, HUMAN 3ML 100 UNIT in SODIUM CHLORIDE 0.9% 99 ML IV PRN ×2 (08:44)
[2019-09-23] MEDS: PANTOPRAZOLE 40 MG/VIAL IVP SCH (08:58)
[2019-09-23] MEDS: CEFTRIAXONE SODIUM 1 GM IV SCH (08:58)
[2019-09-23] MEDS: ENOXAPARIN SODIUM 80 MG/0.8 ML SQ SCH (08:59)
--- NOTE | 2019-09-23 10:29 | NUR ---
PT OVERALL STATUS IMPROVING. ANION GAP STILL AN ISSUE WITH MD'S..DR TRINH HAS SEEN PT THIS AM AND WILL CONTINUE SAME THERAPY FOR NOW. IS NOW MOVING HIS BOWELS . INSULIN DRIP WILL REMAIN.
[2019-09-23 10:36] LABS: ABG BASE EXCESS -10.8 mmol/L (-2.0-3.0); ABG HCO3 13.3 mmol/L (21.0-28.0); ABG OXYGEN SATURATION 95.6 % (95.0-99.0); ABG PCO2 26 mmHg (35-48)
--- NOTE | 2019-09-23 12:42 | NUR ---
NUTRITION EDUCATION COMPLETED PT ADMITS TO NOT FOLLOWING APPROPRIATE DIET AT HOME TO MEET HIS NEEDS. ALTERED NUTRITION RELATED LABS REVIEWED WITH PT AND HIS MOM. RISKS AND COMPLICATIONS INVOLVED WERE DISCUSSED WITH PT, HE VERBALIZED UNDERSTANDING. ALL QUESTIONS WERE ANSWERED. LAB GOALS WERE ESTABLISHED WITH THE PT. RD PROVIDED DIABETES, HEART HEALTHY, LOW FAT, INCREASE PHYSICAL ACTIVITY AND HIGH TG MEDICAL NUTRITION THERAPY. EDUCATION MATERIALS WERE PROVIDED IN GAMBIAN FOR HOME. PT AND HIS MOTHER VERBALIZED UNDERSTANDING AND THE IMPORTANCE OF FOLLOWING APPROPRIATE DIET TO BETTER MEET HIS NEEDS. Addendum: 09/23/19 at [address] Amended: Links added.
[2019-09-23 17:21] LABS: CREATININE 0.5 mg/dL (0.5-1.5); POTASSIUM 3.1 mmol/L (3.5-5.1)
[2019-09-23 17:24] LABS: MAGNESIUM 2.1 mg/dL (1.80-2.40)
[2019-09-23] MEDS ORDERED: POTASSIUM CHLORIDE 10 MEQ in SODIUM CHLORIDE 0.9% 100 ML IV PRN (18:15)
[2019-09-23] MEDS ORDERED: POTASSIUM CHLORIDE 20MEQ/100ML 100 ML IV PRN (19:15)
--- NOTE | 2019-09-23 19:16 | NUR ---
HAND OFF REPORT GIVEN TO NIKKY ALVARENGA
[2019-09-23] MEDS: INSULIN HUMULIN R 100 UNIT/ML 3ML IV SCH (20:02)
[2019-09-23] MEDS: POTASSIUM CHLORIDE 20MEQ/100ML 100 ML IV PRN ×2 (20:37→23:58)
[2019-09-23] MEDS: LIDOCAINE HCL-MPF 1% 2ML VIAL IV PRN (21:11)
[2019-09-23 21:57] LABS: CREATININE 0.6 mg/dL (0.5-1.5); POTASSIUM 3.5 mmol/L (3.5-5.1)
[2019-09-24] VITALS (19 sets, daily range): BP systolic 120–162; BP diastolic 61–96
[2019-09-24] MEDS: D5W-1/2 NS/20MEQ KCL 1,000 ML IV SCH ×4 (02:25→19:34)
[2019-09-24 03:55] LABS: BASOPHILS % (AUTO) 0.2 % (0.0-5.0); EOSINOPHILS % (AUTO) 0.2 % (0.0-8.0); HEMATOCRIT 33.4 % (42-54); LYMPHOCYTES % (AUTO) 14.8 % (21.0-51.0); MEAN CORPUSCULAR HEMOGLOBIN 30.4 pg (27.0-33.0); MEAN CORPUSCULAR HGB CONC 35.6 g/dL (32.0-36.0); MEAN CORPUSCULAR VOLUME 85.4 fL (79-99); MONOCYTES % (AUTO) 3.1 % (3.0-13.0); NEUTROPHILS % (AUTO) 80.5 % (40.0-77.0); PLATELET COUNT (AUTO) 137 K/uL (130-400); RED BLOOD CELL COUNT(AUTO) 3.91 MIL/uL (4.50-6.20); RED CELL DISTRIBUTION WIDTH 15.6 % (11.0-15.5); WHITE BLOOD COUNT (AUTO) 12.4 K/uL (4.8-10.8)
[2019-09-24 04:18] LABS: ALBUMIN 1.8 g/dL (3.5-5.0); BILIRUBIN,TOTAL 0.8 mg/dL (0.2-1.0); CREATININE 0.6 mg/dL (0.5-1.5); PHOSPHORUS 1.2 mg/dL (2.5-4.9); POTASSIUM 4.5 mmol/L (3.5-5.1); TOTAL PROTEIN, SERUM 6.6 g/dL (6.0-8.3)
[2019-09-24] MEDS: LACTATED RINGERS 1000ML 1,000 ML IV SCH ×4 (04:34→16:15)
[2019-09-24] MEDS ORDERED: PHARMACY COMMUNICATION MISC SCH (06:00)
[2019-09-24] MEDS: POTASSIUM PHOS 15 mMOL+NS250ML 250 ML IV PRN ×2 (06:59→19:51)
[2019-09-24] MEDS: INSULIN REGULAR, HUMAN 3ML 100 UNIT in SODIUM CHLORIDE 0.9% 99 ML IV PRN ×2 (07:50)
[2019-09-24] MEDS: PANTOPRAZOLE 40 MG/VIAL IVP SCH (08:26)
[2019-09-24] MEDS: ENOXAPARIN SODIUM 80 MG/0.8 ML SQ SCH (08:27)
[2019-09-24 12:21] LABS: CREATININE 0.6 mg/dL (0.5-1.5)
[2019-09-24] MEDS: POTASSIUM CHLORIDE 20MEQ/100ML 100 ML IV PRN ×3 (12:28→20:45)
[2019-09-24 12:37] LABS: MAGNESIUM 1.8 mg/dL (1.80-2.40); PHOSPHORUS 1.8 mg/dL (2.5-4.9)
[2019-09-24] MEDS: NAFCILLIN 1GM+NS 100ML 100 ML IV SCH ×3 (12:51→20:16)
[2019-09-24] MEDS: MAGNESIUM 2GM PREMIX 50ML 50 ML IV PRN (12:52)
[2019-09-24] MEDS: LIDOCAINE HCL-MPF 1% 2ML VIAL IV PRN (16:19)
[2019-09-24] MEDS: INSULIN HUMULIN R 100 UNIT/ML 3ML IV SCH (20:11)
[2019-09-24 21:17] LABS: CREATININE 0.5 mg/dL (0.5-1.5); POTASSIUM 3.2 mmol/L (3.5-5.1)
[2019-09-24 21:33] LABS: MAGNESIUM 2.3 mg/dL (1.80-2.40)
[2019-09-24 21:34] LABS: PHOSPHORUS 1.6 mg/dL (2.5-4.9)
[2019-09-25] VITALS (15 sets, daily range): BP systolic 112–160; BP diastolic 42–99
[2019-09-25] MEDS: NAFCILLIN 1GM+NS 100ML 100 ML IV SCH ×6 (00:20→20:59)
[2019-09-25] MEDS: D5W-1/2 NS/20MEQ KCL 1,000 ML IV SCH ×5 (00:21→23:38)
[2019-09-25] MEDS: POTASSIUM CHLORIDE 20MEQ/100ML 100 ML IV PRN ×5 (00:52→18:12)
[2019-09-25] MEDS: LACTATED RINGERS 1000ML 1,000 ML IV SCH ×2 (01:46→08:57)
[2019-09-25 04:22] LABS: ABG OXYGEN SATURATION 75.6 % (95.0-99.0); BASE EXCESS,VENOUS BLOOD GAS -6.6 (-2.0-3.0); HCO3,VENOUS BLOOD GAS 17.1 (21.0-28.0); PCO2,VENOUS BLOOD GAS 30 (35-48); PH,VENOUS BLOOD GAS 7.378 (7.350-7.450)
[2019-09-25 04:29] LABS: BASOPHILS % (AUTO) 0.3 % (0.0-5.0); EOSINOPHILS % (AUTO) 0.1 % (0.0-8.0); LYMPHOCYTES % (AUTO) 17.4 % (21.0-51.0); MEAN CORPUSCULAR HEMOGLOBIN 30.2 pg (27.0-33.0); MEAN CORPUSCULAR HGB CONC 35.3 g/dL (32.0-36.0); MEAN CORPUSCULAR VOLUME 85.6 fL (79-99); MONOCYTES % (AUTO) 4.4 % (3.0-13.0); NEUTROPHILS % (AUTO) 75.9 % (40.0-77.0); PLATELET COUNT (AUTO) 185 K/uL (130-400); RED BLOOD CELL COUNT(AUTO) 3.97 MIL/uL (4.50-6.20); RED CELL DISTRIBUTION WIDTH 15.2 % (11.0-15.5); WHITE BLOOD COUNT (AUTO) 8.9 K/uL (4.8-10.8)
[2019-09-25 04:58] LABS: ALBUMIN 2.1 g/dL (3.5-5.0); BILIRUBIN,TOTAL 0.8 mg/dL (0.2-1.0); CREATININE 0.6 mg/dL (0.5-1.5); MAGNESIUM 1.8 mg/dL (1.80-2.40); PHOSPHORUS 2.4 mg/dL (2.5-4.9); POTASSIUM 3.5 mmol/L (3.5-5.1); TOTAL PROTEIN, SERUM 6.8 g/dL (6.0-8.3)
[2019-09-25] MEDS: MAGNESIUM 2GM PREMIX 50ML 50 ML IV PRN (06:02)
[2019-09-25] MEDS: INSULIN REGULAR, HUMAN 3ML 100 UNIT in SODIUM CHLORIDE 0.9% 99 ML IV PRN ×2 (06:56)
--- NOTE | 2019-09-25 08:04 | NUR ---
PT OVERALL STATUS IMPROVED. NO ACUTE DISTRESS NOTED. PENDING MD ROUNDS
[2019-09-25] MEDS: PANTOPRAZOLE 40 MG/VIAL IVP SCH ×2 (08:51→18:09)
[2019-09-25] MEDS: POTASSIUM PHOS 15 mMOL+NS250ML 250 ML IV PRN (08:52)
[2019-09-25] MEDS: ENOXAPARIN SODIUM 80 MG/0.8 ML SQ SCH (08:52)
[2019-09-25 14:32] LABS: CREATININE 0.5 mg/dL (0.5-1.5); POTASSIUM 3.3 mmol/L (3.5-5.1)
[2019-09-25] MEDS: LIDOCAINE HCL-MPF 1% 2ML VIAL IV PRN (15:14)
[2019-09-25] MEDS ORDERED: POTASSIUM CHLORIDE 20MEQ/100ML 100 ML IV PRN (16:00)
[2019-09-25] MEDS ORDERED: LIDOCAINE HCL-MPF 1% 2ML VIAL IV PRN (16:00)
--- NOTE | 2019-09-25 19:41 | NUR ---
HAND OFF GIVEN TO CHATA URBINA RN
[2019-09-25 22:10] LABS: CREATININE 0.5 mg/dL (0.5-1.5); POTASSIUM 3.3 mmol/L (3.5-5.1)
[2019-09-26] VITALS (24 sets, daily range): BP systolic 107–146; BP diastolic 55–92
[2019-09-26] MEDS: NAFCILLIN 1GM+NS 100ML 100 ML IV SCH ×6 (00:59→20:08)
[2019-09-26 03:37] LABS: BASOPHILS % (AUTO) 0.4 % (0.0-5.0); EOSINOPHILS % (AUTO) 0.6 % (0.0-8.0); HEMATOCRIT 35.7 % (42-54); LYMPHOCYTES % (AUTO) 19.8 % (21.0-51.0); MEAN CORPUSCULAR HEMOGLOBIN 29.7 pg (27.0-33.0); MEAN CORPUSCULAR HGB CONC 34.5 g/dL (32.0-36.0); MEAN CORPUSCULAR VOLUME 86.2 fL (79-99); MONOCYTES % (AUTO) 5.1 % (3.0-13.0); NEUTROPHILS % (AUTO) 69.3 % (40.0-77.0); PLATELET COUNT (AUTO) 185 K/uL (130-400); RED BLOOD CELL COUNT(AUTO) 4.14 MIL/uL (4.50-6.20); RED CELL DISTRIBUTION WIDTH 15.3 % (11.0-15.5); WHITE BLOOD COUNT (AUTO) 8.9 K/uL (4.8-10.8)
[2019-09-26 03:57] LABS: ALBUMIN 2.3 g/dL (3.5-5.0); BILIRUBIN,TOTAL 0.6 mg/dL (0.2-1.0); CREATININE 0.6 mg/dL (0.5-1.5); POTASSIUM 3.3 mmol/L (3.5-5.1); TOTAL PROTEIN, SERUM 7.4 g/dL (6.0-8.3)
[2019-09-26] MEDS: POTASSIUM CHLORIDE 20MEQ/100ML 100 ML IV PRN ×2 (05:37→09:09)
[2019-09-26] MEDS: D5W-1/2 NS/20MEQ KCL 1,000 ML IV SCH ×4 (06:38→23:01)
[2019-09-26] MEDS: ENOXAPARIN SODIUM 80 MG/0.8 ML SQ SCH (08:54)
[2019-09-26] MEDS: INSULIN REGULAR, HUMAN 3ML 100 UNIT in SODIUM CHLORIDE 0.9% 99 ML IV PRN ×2 (09:04)
[2019-09-26] MEDS: PANTOPRAZOLE 40 MG/VIAL IVP SCH (09:07)
[2019-09-26 13:44] LABS: CREATININE 0.6 mg/dL (0.5-1.5); POTASSIUM 3.5 mmol/L (3.5-5.1)
--- NOTE | 2019-09-26 16:15 | NUR ---
ANION GAP DR. THOMPSON NOTIFIED OF PATIENT'S RECENT ANION GAP OF 11. HE GAVE ORDERS TO START 25 UNITS OF LANTUS BID AND STOP INSULIN DRIP IN 1 HR; HIGH RESISTANT SLIDING SCALE ACHS; BMP EVERY 6 HRS TIMES 2. ORDERS ENTERED INTO THE SYSTEM.
[2019-09-26] MEDS: INSULIN GLARGINE 100 UNITS/ML 10 ML VIAL SQ SCH ×2 (17:35→20:31)
--- NOTE | 2019-09-26 19:00 | NUR ---
Received report patient of Insulin drip and IV Fluids.Pt on Q6 BMP and AC HS on regular diet as per MD's order.
[2019-09-26] MEDS: INSULIN HUMULIN R 100 UNIT/ML 3ML SQ SCH (20:31)
[2019-09-26] MEDS: POTASSIUM CHLORIDE 10 MEQ/TAB.SA PO SCH (20:33)
[2019-09-26 20:51] LABS: CREATININE 0.7 mg/dL (0.5-1.5); POTASSIUM 3.4 mmol/L (3.5-5.1)
[2019-09-27] VITALS (20 sets, daily range): BP systolic 97–141; BP diastolic 51–87
[2019-09-27] MEDS: NAFCILLIN 1GM+NS 100ML 100 ML IV SCH ×6 (00:02→21:29)
--- NOTE | 2019-09-27 00:47 | NUR ---
ADVERTISING PHOTOGRAPHER Adam notified about patient BMP result no new order received but to call machine edge bander.
--- NOTE | 2019-09-27 00:48 | NUR ---
Attempted to notify pending to call back
--- NOTE | 2019-09-27 00:56 | NUR ---
Called Dr.M.Gomez micky SUMMERS he said not to call him but to call hospitalist instead.
[2019-09-27] MEDS ORDERED: POTASSIUM CHLORIDE 20 MEQ ERTAB PO SCH ×2 (01:00→08:30)
[2019-09-27] MEDS ORDERED: POTASSIUM CHLORIDE 20 MEQ ERTAB PO ONE (01:10)
--- NOTE | 2019-09-27 01:50 | NUR ---
DIRECTOR OF INFECTION CONTROL Adam was called again and received new order to give K-dur 40 meq P.o X1.
[2019-09-27 04:02] LABS: ALBUMIN 2.4 g/dL (3.5-5.0); BILIRUBIN,TOTAL 0.4 mg/dL (0.2-1.0); CREATININE 0.6 mg/dL (0.5-1.5); POTASSIUM 3.2 mmol/L (3.5-5.1); TOTAL PROTEIN, SERUM 7.4 g/dL (6.0-8.3)
[2019-09-27] MEDS: D5W-1/2 NS/20MEQ KCL 1,000 ML IV SCH (04:24)
[2019-09-27] MEDS: INSULIN GLARGINE 100 UNITS/ML 10 ML VIAL SQ SCH ×2 (06:21→21:36)
[2019-09-27] MEDS: INSULIN HUMULIN R 100 UNIT/ML 3ML SQ SCH ×4 (06:24→21:33)
[2019-09-27] MEDS ORDERED: INSULIN HUMULIN R 100 UNIT/ML 3ML SQ SCH (07:30)
[2019-09-27] MEDS: ENOXAPARIN SODIUM 80 MG/0.8 ML SQ SCH (07:59)
[2019-09-27] MEDS: POTASSIUM CHLORIDE 10 MEQ/TAB.SA PO SCH ×2 (08:00→21:30)
--- NOTE | 2019-09-27 11:00 | NUR ---
DISCHARGE/TRANSFER DR. THOMPSON STATES PATIENT IS OKAY TO BE DISCHARGED FROM ICU HOME OR TO ANOTHER FLOOR.
--- NOTE | 2019-09-27 17:20 | NUR ---
CALLED REPORT REPORT CALLED TO KARAN ALVARENGA AT [phone].
--- NOTE | 2019-09-27 17:45 | NUR ---
TRANSFER PER IRON MINER BLASTING, WAIT TO TRANSFER PATIENT AT 1830.
--- NOTE | 2019-09-27 18:25 | NUR ---
transfer PATIENT WAS TRANSFERRED TO [facility] AT THIS TIME.
[2019-09-28] MEDS: NAFCILLIN 1GM+NS 100ML 100 ML IV SCH ×6 (00:20→20:12)
[2019-09-28 04:00] VITALS: BP 117/61
[2019-09-28 05:08] LABS: BASOPHILS % (AUTO) 0.1 % (0.0-5.0); EOSINOPHILS % (AUTO) 1.5 % (0.0-8.0); HEMATOCRIT 40.2 % (42-54); LYMPHOCYTES % (AUTO) 40.6 % (21.0-51.0); MEAN CORPUSCULAR HEMOGLOBIN 28.7 pg (27.0-33.0); MEAN CORPUSCULAR HGB CONC 32.8 g/dL (32.0-36.0); MEAN CORPUSCULAR VOLUME 87.4 fL (79-99); NEUTROPHILS % (AUTO) 39.5 % (40.0-77.0); PLATELET COUNT (AUTO) 237 K/uL (130-400); RED CELL DISTRIBUTION WIDTH 14.9 % (11.0-15.5); WHITE BLOOD COUNT (AUTO) 7.6 K/uL (4.8-10.8)
[2019-09-28 05:37] LABS: ALBUMIN 2.6 g/dL (3.5-5.0); BILIRUBIN,TOTAL 0.4 mg/dL (0.2-1.0); CREATININE 0.8 mg/dL (0.5-1.5); POTASSIUM 3.7 mmol/L (3.5-5.1); TOTAL PROTEIN, SERUM 7.6 g/dL (6.0-8.3)
[2019-09-28] MEDS: INSULIN HUMULIN R 100 UNIT/ML 3ML SQ SCH ×4 (06:39→21:07)
[2019-09-28] MEDS: INSULIN GLARGINE 100 UNITS/ML 10 ML VIAL SQ SCH (06:43)
[2019-09-28 08:00] VITALS: BP 120/76
--- NOTE | 2019-09-28 08:00 | NUR ---
AM SHIFT ASSESSMENT.
[2019-09-28] MEDS: POTASSIUM CHLORIDE 10 MEQ/TAB.SA PO SCH ×2 (08:20→20:14)
[2019-09-28] MEDS: ENOXAPARIN SODIUM 80 MG/0.8 ML SQ SCH (08:22)
--- NOTE | 2019-09-28 10:54 | NUR ---
RD UPDATE Notification received for Pt Nutrition education for discharge. Diabetes Nutrition previously provided 09/23/19 with Pt and Pt's mother. Pt with no further questions. Pt to be discharged today, as per RN. Please notify as additional nutrition concerns arise. Thank you.
--- NOTE | 2019-09-28 11:05 | NUR ---
CM NOTE PER DR. CORMIER, POSSIBLE DC HOME TODAY WITH BACTRIM DS. REQUEST FOR RX WEAVER POINT BY [employer]DER. MEET WITH PATIENT IN ROOM. [facility] AND [facility] GENERIC $4PLAN GIVEN TO PATIENT, MOTHER AT BEDSIDE. VERBALIZED UNDERSTANDING OF [facility] AND GENERIC PLAN. REINFORCED INSULIN ADMINISTRATION AND BLOOD SUGAR CHECKS AT HOME. CONVERSATIONS BETWEEN PATIENT AND I REPORTED TO PRIMARY NURSE, KARAN ALVARENGA.
[2019-09-28 11:59] VITALS: BP 130/70
--- NOTE | 2019-09-28 15:09 | NUR ---
DIABETIC MEDICATIONS BEING ADJUSTED, PLAN TO DC IN AM.
[2019-09-28 16:00] VITALS: BP 121/69
[2019-09-28] MEDS ORDERED: INSULIN HUMULIN 70/30 100 UNIT/ML 3ML SQ SCH (16:30)
[2019-09-28] MEDS: METFORMIN HCL 500 MG TABLET PO SCH (19:37)
[2019-09-28 20:00] VITALS: BP 123/73
[2019-09-29] VITALS: BP 123/67
[2019-09-29] MEDS: NAFCILLIN 1GM+NS 100ML 100 ML IV SCH ×4 (00:10→13:11)
[2019-09-29 04:00] VITALS: BP 115/69
[2019-09-29 05:11] LABS: BASOPHILS % (AUTO) 0.9 % (0.0-5.0); EOSINOPHILS % (AUTO) 1.1 % (0.0-8.0); HEMATOCRIT 39.7 % (42-54); LYMPHOCYTES % (AUTO) 35.7 % (21.0-51.0); MEAN CORPUSCULAR HEMOGLOBIN 29.5 pg (27.0-33.0); MEAN CORPUSCULAR HGB CONC 33.2 g/dL (32.0-36.0); MEAN CORPUSCULAR VOLUME 88.8 fL (79-99); MONOCYTES % (AUTO) 8.2 % (3.0-13.0); NEUTROPHILS % (AUTO) 47.3 % (40.0-77.0); PLATELET COUNT (AUTO) 240 K/uL (130-400); RED BLOOD CELL COUNT(AUTO) 4.47 MIL/uL (4.50-6.20); RED CELL DISTRIBUTION WIDTH 14.5 % (11.0-15.5); WHITE BLOOD COUNT (AUTO) 8.9 K/uL (4.8-10.8)
[2019-09-29 06:07] LABS: ALBUMIN 2.7 g/dL (3.5-5.0); BILIRUBIN,TOTAL 0.4 mg/dL (0.2-1.0); CREATININE 0.7 mg/dL (0.5-1.5); POTASSIUM 3.4 mmol/L (3.5-5.1); TOTAL PROTEIN, SERUM 7.5 g/dL (6.0-8.3)
[2019-09-29] MEDS: INSULIN HUMULIN R 100 UNIT/ML 3ML SQ SCH ×3 (06:34→16:30)
[2019-09-29] MEDS ORDERED: INSULIN HUMULIN 70/30 100 UNIT/ML 3ML SQ SCH (07:30)
[2019-09-29 08:16] VITALS: BP 111/64
[2019-09-29] MEDS ORDERED: ENOXAPARIN SODIUM 40 MG/0.4 ML SYRINGE SQ SCH (09:00)
[2019-09-29] MEDS: POTASSIUM CHLORIDE 10 MEQ/TAB.SA PO SCH (09:11)
[2019-09-29] MEDS: METFORMIN HCL 500 MG TABLET PO SCH (09:11)
[2019-09-29 11:57] VITALS: BP 116/68
[2019-09-29] MEDS ORDERED: HUM10VIA SQ ×2 (15:52)
[2019-09-29] MEDS ORDERED: METF-444 PO (15:52)
[2019-09-29] MEDS ORDERED: SULF1TAB42 PO (15:52)
[2019-09-29 16:14] VITALS: BP 119/68
== END 2019-09-29 17:33 | disposition home or self-care (01) | DRG 637 ==
LOC: EDH 16:03 → EDHIP 16:04 → 2CH 23:51 → 3BH 09-27 18:22
PROVIDERS: ADMIT Internal Medicine; ATTEND Internal Medicine
DX: E11.10 Type 2 diabetes mellitus with ketoacidosis without coma (principal); K85.90 Acute pancreatitis without necrosis or infection, unspecified; J15.9 Unspecified bacterial pneumonia; E87.1 Hypo-osmolality and hyponatremia; E78.1 Pure hyperglyceridemia; A49.01 Methicillin susceptible Staphylococcus aureus infection, unspecified site; E66.9 Obesity, unspecified; E86.0 Dehydration; E87.6 Hypokalemia; E88.81 Metabolic syndrome and other insulin resistance; Z68.33 Body mass index [BMI] 33.0-33.9, adult; Z79.4 Long term (current) use of insulin; Z91.19 Patient's noncompliance with other medical treatment and regimen; Z83.3 Family history of diabetes mellitus; Z82.49 Family history of ischemic heart disease and other diseases of the circulatory system
CPT/HCPCS: 36415; 36600; 71045; 74176; 76700; 80048; 80053; 80061; 81001; 82010; 82150; 82435; 82550; 82803; 82947; 82948; 83036; 83605; 83690; 83735; 83930; 84100; 84132; 84145; 84295; 84478; 85025; 86140; 87040; 87071; 87077; 87088; 87186; 87205; 87804; 94640; C9113; G0378; J0456; J0610; J0696; J1650; J1815; J2270; J2405; J2765; J3475; J3480; J3490; J7030; J7042; J7120

== ENCOUNTER 2020-02-24 16:22 | Inpatient (IN) | payer OTHER, SELFPAY ==
[~2020-02-24] VITALS: Ht 167.6 cm; Wt 99.8 kg
[~2020-02-24 16:22] MED LIST changes: +HUM10VIA SQ; -INSREG SQ; +METF-444 PO; -METF-527 PO; -NPH,100V11 SQ; +SULF1TAB42 PO
[2020-02-24] MEDS ORDERED: INSULIN HUMULIN R 100 UNIT/ML 3ML ONE (16:50)
[2020-02-24] MEDS ORDERED: ONDANSETRON HCL 4 MG/2 ML VIAL ONE (16:50)
[2020-02-24 17:01] LABS: ABG BASE EXCESS -23.6 mmol/L (-2.0-3.0); ABG HCO3 4.6 mmol/L (21.0-28.0); ABG OXYGEN SATURATION 96.3 % (95.0-99.0); ABG PCO2 16 mmHg (35-48)
[2020-02-24 17:31] LABS: BASOPHILS % (AUTO) 0.4 % (0.0-5.0); EOSINOPHILS % (AUTO) 0.1 % (0.0-8.0); LYMPHOCYTES % (AUTO) 22.7 % (21.0-51.0); MEAN CORPUSCULAR HEMOGLOBIN 33.4 pg (27.0-33.0); MEAN CORPUSCULAR HGB CONC 37.7 g/dL (32.0-36.0); MEAN CORPUSCULAR VOLUME 88.6 fL (79-99); MONOCYTES % (AUTO) 7.1 % (3.0-13.0); NEUTROPHILS % (AUTO) 67.1 % (40.0-77.0); NUCLEATED RED BLOOD CELLS 0.4 % (0.0-0.19); PLATELET COUNT (AUTO) 208 K/uL (130-400); RED CELL DISTRIBUTION WIDTH 14.2 % (11.0-15.5)
[2020-02-24 17:32] LABS: HEMATOCRIT 46.6 % (42-54); RED BLOOD CELL COUNT(AUTO) 5.15 MIL/uL (4.50-6.20)
[2020-02-24] MEDS ORDERED: SODIUM CHLORIDE 0.9% 100 ML IV ONE (18:10)
[2020-02-24 18:12] LABS: POTASSIUM 3.6 mmol/L (3.5-5.1)
[2020-02-24 18:18] LABS: CREATININE 1.2 mg/dL (0.5-1.5)
[2020-02-24 18:19] LABS: ALBUMIN 3.2 g/dL (3.5-5.0); BILIRUBIN,TOTAL 0.2 mg/dL (0.2-1.0); TOTAL PROTEIN, SERUM 4.8 g/dL (6.0-8.3)
[2020-02-24] MEDS ORDERED: LACTATED RINGERS 1000ML 1,000 ML IV SCH (18:42)
[2020-02-24] MEDS ORDERED: HYDROMORPHONE 1 MG/1 ML AMP IV PRN (18:45)
[2020-02-24] MEDS ORDERED: ACETAMINOPHEN 325 MG TAB PO PRN ×2 (18:45)
[2020-02-24] MEDS ORDERED: MORPHINE SULFATE 2 MG/ML 1ML SYG IV PRN (18:45)
[2020-02-24] MEDS ORDERED: ONDANSETRON HCL 4 MG/2 ML VIAL IV PRN (18:45)
[2020-02-24 19:19] LABS: POTASSIUM 4.2 mmol/L (3.5-5.1)
[2020-02-24] MEDS: LACTATED RINGERS 1000ML 1,000 ML IV SCH (20:15)
[2020-02-24 20:25] LABS: APPEARANCE,URINE Clear (CLEAR); BILIRUBIN,URINE Negative (NEGATIVE); COLOR,URINE Yellow (YELLOW); GLUCOSE, URINE (UA) >=1000 mg/dL (NEGATIVE); KETONES,URINE >=160 mg/dL (NEGATIVE); LEUKOCYTE ESTERASE ,URINE Negative (NEGATIVE); NITRATE,URINE Negative (NEGATIVE); OCCULT BLOOD,URINE Small (NEGATIVE); PROTEIN,URINE 300 mg/dL (NEGATIVE)
[2020-02-24] MEDS ORDERED: LACTATED RINGERS 1000ML 1,000 ML IV ONE (20:28)
[2020-02-24 20:32] LABS: CREATININE 1.2 mg/dL (0.5-1.5)
[2020-02-24 20:44] LABS: BACTERIA,URINE Few /HPF (None Seen); WBC,URINE 0-1 /HPF (0-1)
[2020-02-24 20:45] LABS: SQUAMOUS EPITHELIAL CELL,UR Few /HPF (0-2)
[2020-02-24] MEDS ORDERED: METRONIDAZOLE 500MG/100ML BAG 100 ML ONE (21:08)
[2020-02-24] MEDS ORDERED: ZOSYN 3.375GM+NS 50ML 50 ML IV ONE (21:08)
[2020-02-24] MEDS ORDERED: FAMOTIDINE/PF 20 MG/2 ML VIAL IV ONE (21:09)
[2020-02-25 00:33] LABS: CHLORIDE 99 mmol/L (101-111); CREATININE 1.1 mg/dL (0.5-1.5); GLOMERULAR FILTR. RATE CALC 87 mL/min (>60); GLUCOSE,RANDOM 316 mg/dL (70-105); POTASSIUM 3.7 mmol/L (3.5-5.1); SODIUM SERUM 131 mmol/L (136-145); UREA NITROGEN, BLOOD 8 mg/dL (7-18)
[2020-02-25 00:38] LABS: CARBON DIOXIDE 6 mmol/L (21-32)
[2020-02-25] MEDS: METRONIDAZOLE 500MG/100ML BAG 100 ML IV SCH ×4 (02:45→19:54)
[2020-02-25] MEDS ORDERED: INSULIN REGULAR, HUMAN 3ML 100 UNIT in SODIUM CHLORIDE 0.9% 99 ML IV PRN ×2 (03:15)
[2020-02-25] MEDS ORDERED: METRONIDAZOLE 500MG/100ML BAG 100 ML ONE ×2 (04:34→10:27)
[2020-02-25] MEDS: ZOSYN 3.375GM+NS 50ML 50 ML IV SCH ×4 (05:00→21:09)
[2020-02-25 05:22] LABS: HEMATOCRIT 38.1 % (42-54); MEAN CORPUSCULAR HEMOGLOBIN 59.9 pg (27.0-33.0); MEAN CORPUSCULAR VOLUME 86.8 fL (79-99); NUCLEATED RED BLOOD CELLS 0.2 % (0.0-0.19); RED BLOOD CELL COUNT(AUTO) 4.39 MIL/uL (4.50-6.20); RED CELL DISTRIBUTION WIDTH 14.5 % (11.0-15.5); WHITE BLOOD COUNT (AUTO) 19.9 K/uL (4.8-10.8)
[2020-02-25] MEDS ORDERED: ZOSYN 3.375GM+NS 50ML 50 ML IV ONE ×2 (06:35→13:56)
[2020-02-25 07:13] LABS: POTASSIUM 3.4 mmol/L (3.5-5.1)
[2020-02-25] MEDS ORDERED: IOHEXOL-350 75 ML VIAL IV ONE (07:30)
[2020-02-25] MEDS: D5W-1/2 NS/20MEQ KCL 1,000 ML IV SCH ×3 (08:00→21:10)
[2020-02-25] MEDS ORDERED: FAMOTIDINE/PF 20 MG/2 ML VIAL IV ONE (08:53)
[2020-02-25 09:00] LABS: CREATININE 0.8 mg/dL (0.5-1.5)
[2020-02-25] MEDS: FAMOTIDINE/PF 20 MG/2 ML VIAL IV SCH ×3 (09:00→21:09)
[2020-02-25 09:26] LABS: ABG BASE EXCESS -19.2 mmol/L (-2.0-3.0); ABG HCO3 7.4 mmol/L (21.0-28.0); ABG OXYGEN SATURATION 97.1 % (95.0-99.0); ABG PCO2 21 mmHg (35-48)
[2020-02-25 11:49] LABS: MAGNESIUM 1.8 mg/dL (1.80-2.40); POTASSIUM 3.3 mmol/L (3.5-5.1)
[2020-02-25] MEDS ORDERED: POTASSIUM CHLORIDE 20MEQ/100ML 100 ML IV ONE (12:07)
[2020-02-25] MEDS ORDERED: LIDOCAINE HCL-MPF 1% 2ML VIAL ONE (12:10)
[2020-02-25] MEDS ORDERED: ONDANSETRON HCL 4 MG/2 ML VIAL ONE (12:15)
[2020-02-25 12:53] LABS: CREATININE 0.7 mg/dL (0.5-1.5)
[2020-02-25 15:56] LABS: POTASSIUM 3.9 mmol/L (3.5-5.1)
[2020-02-25 16:02] LABS: CREATININE 0.7 mg/dL (0.5-1.5)
[2020-02-25 16:11] LABS: CHOLESTEROL 228 mg/dL (<200); LDL DIRECT 52 mg/dL (0-99); TRIGLYCERIDES 1762 mg/dL (30-200)
[2020-02-25] MEDS ORDERED: CALCIUM GLUCONATE 1 GM/10 ML VIAL IV SCH (16:15)
[2020-02-25 16:25] LABS: HDL CHOLESTEROL 29 mg/dL (29-71)
[2020-02-25] MEDS ORDERED: CALCIUM GLUCONATE 1 GM/10 ML VIAL IV ONE (16:28)
--- NOTE | 2020-02-25 16:55 | NUR ---
INITIAL SW spoke to patient's brother, Willy Bravo. Patient lives with brother. He has no home services or DME. Patient is able to complete ADL's independently and drives. 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 Patient has no PCP at this time. Pharmacy is [facility] located on [address] in [place]. DCP is home. Patient has no insurance or benefits. He is a [place] citizen and is presently working. SW educated patient's brother on discount medication programs at [facility]. Patient is being assisted by [employer]. Addendum: 02/25/20 at 1657 by JAY SHELDON Amended: Links added.
[2020-02-25 19:00] VITALS: BP 111/48
[2020-02-25 20:00] VITALS: BP 110/32
[2020-02-25] MEDS: LACTATED RINGERS 1000ML 1,000 ML IV SCH (20:15)
[2020-02-25 21:00] VITALS: BP 109/50
[2020-02-25 22:00] VITALS: BP 118/56
[2020-02-25 23:00] VITALS: BP 134/69
[2020-02-26] VITALS (20 sets, daily range): BP systolic 108–149; BP diastolic 54–80
[2020-02-26] MEDS: LACTATED RINGERS 1000ML 1,000 ML IV SCH ×6 (00:15→17:45)
[2020-02-26 01:09] LABS: BILIRUBIN,TOTAL 0.4 mg/dL (0.2-1.0); MAGNESIUM 1.8 mg/dL (1.80-2.40); PHOSPHORUS 1.4 mg/dL (2.5-4.9); POTASSIUM 3.6 mmol/L (3.5-5.1); TOTAL PROTEIN, SERUM 7.7 g/dL (6.0-8.3)
[2020-02-26] MEDS: METRONIDAZOLE 500MG/100ML BAG 100 ML IV SCH ×3 (02:59→17:41)
[2020-02-26] MEDS: D5W-1/2 NS/20MEQ KCL 1,000 ML IV SCH ×5 (02:59→20:02)
[2020-02-26 05:02] LABS: BASOPHILS % (AUTO) 0.7 % (0.0-5.0); EOSINOPHILS % (AUTO) 0.2 % (0.0-8.0); HEMATOCRIT 43.1 % (42-54); LYMPHOCYTES % (AUTO) 23.5 % (21.0-51.0); MEAN CORPUSCULAR HEMOGLOBIN 43.1 pg (27.0-33.0); MEAN CORPUSCULAR HGB CONC 49.4 g/dL (32.0-36.0); MEAN CORPUSCULAR VOLUME 87.2 fL (79-99); MONOCYTES % (AUTO) 7.4 % (3.0-13.0); NEUTROPHILS % (AUTO) 65.2 % (40.0-77.0); PLATELET COUNT (AUTO) 171 K/uL (130-400); RED BLOOD CELL COUNT(AUTO) 4.94 MIL/uL (4.50-6.20); RED CELL DISTRIBUTION WIDTH 15.1 % (11.0-15.5); WHITE BLOOD COUNT (AUTO) 14.7 K/uL (4.8-10.8)
[2020-02-26] MEDS: ZOSYN 3.375GM+NS 50ML 50 ML IV SCH ×3 (05:12→20:01)
[2020-02-26 05:30] LABS: BILIRUBIN,TOTAL 0.5 mg/dL (0.2-1.0); MAGNESIUM 1.9 mg/dL (1.80-2.40); PHOSPHORUS 1.5 mg/dL (2.5-4.9); POTASSIUM 3.5 mmol/L (3.5-5.1); TOTAL PROTEIN, SERUM 7.6 g/dL (6.0-8.3)
[2020-02-26] MEDS: POTASSIUM CHLORIDE 20MEQ/100ML 100 ML IV PRN ×3 (07:26→19:59)
[2020-02-26] MEDS ORDERED: LACTATED RINGERS 1000ML IV SCH (08:30)
[2020-02-26] MEDS: FAMOTIDINE/PF 20 MG/2 ML VIAL IV SCH ×2 (08:36→19:58)
[2020-02-26 09:37] LABS: BILIRUBIN,TOTAL 0.5 mg/dL (0.2-1.0); PHOSPHORUS 1.4 mg/dL (2.5-4.9); POTASSIUM 3.3 mmol/L (3.5-5.1); TOTAL PROTEIN, SERUM 7.5 g/dL (6.0-8.3)
--- NOTE | 2020-02-26 11:40 | NUR ---
CHART CHECK COMPLETED. Pt IS A 24 Y.O. MALE ADMITTED SECONDARY TO DKA,ACUTE PANCREATITIS, SEPSIS, HLD. Pt HAS A PAST MEDICAL HISTORY SIGNIFICANT FOR DMII, PANCREATITIS. Pt CURRENTLY NPO SECONDARY TO ADMITTING DIAGNOSIS. PLEASE REQUEST FORMAL SKILLED SPEECH/SWALLOW EVALUATION IF Pt PRESENTS WITH +S/S OF ASPIRATION SUCH COUGH RESPONSE, THROAT CLEAR, OR WET VOCAL QUALITY DURING P.O. Addendum: 02/26/20 at 1145 by PATO POPE, [facility] Amended: Links added.
[2020-02-26] MEDS ORDERED: POTASSIUM PHOSPHATE IV ONE (13:00)
[2020-02-26] MEDS ORDERED: SODIUM CHLORIDE 0.9% IV ONE (13:00)
[2020-02-26 13:34] LABS: ALBUMIN 2.8 g/dL (3.5-5.0); BILIRUBIN,TOTAL 0.5 mg/dL (0.2-1.0); POTASSIUM 3.2 mmol/L (3.5-5.1); TOTAL PROTEIN, SERUM 7.6 g/dL (6.0-8.3)
[2020-02-26] MEDS ORDERED: NEUTRA-PHOS PACKET 1 EACH ONE (17:36)
[2020-02-26] MEDS: NEUTRA-PHOS PACKET 1 EACH PO SCH ×2 (17:43→18:40)
[2020-02-26 18:02] LABS: ALBUMIN 2.9 g/dL (3.5-5.0); BILIRUBIN,TOTAL 0.5 mg/dL (0.2-1.0); MAGNESIUM 1.7 mg/dL (1.80-2.40); PHOSPHORUS 1.8 mg/dL (2.5-4.9); POTASSIUM 3.2 mmol/L (3.5-5.1); TOTAL PROTEIN, SERUM 7.5 g/dL (6.0-8.3)
[2020-02-26] MEDS ORDERED: MAGNESIUM 2GM PREMIX 50ML 50 ML IV ONE (18:19)
[2020-02-26] MEDS: LIDOCAINE HCL-MPF 1% 2ML VIAL IJ PRN (19:58)
[2020-02-26] MEDS: MAGNESIUM 2GM PREMIX 50ML 50 ML IV SCH (20:00)
[2020-02-26] MEDS: INSULIN REGULAR, HUMAN 3ML 100 UNIT in SODIUM CHLORIDE 0.9% 99 ML IV PRN ×2 (20:27)
[2020-02-26 21:21] LABS: ALBUMIN 2.9 g/dL (3.5-5.0); BILIRUBIN,TOTAL 0.6 mg/dL (0.2-1.0); CREATININE 0.9 mg/dL (0.5-1.5); MAGNESIUM 2.4 mg/dL (1.80-2.40); PHOSPHORUS 1.7 mg/dL (2.5-4.9); POTASSIUM 4.1 mmol/L (3.5-5.1); TOTAL PROTEIN, SERUM 7.7 g/dL (6.0-8.3)
[2020-02-27] VITALS (23 sets, daily range): BP systolic 106–158; BP diastolic 59–86
[2020-02-27] MEDS: LACTATED RINGERS 1000ML 1,000 ML IV SCH ×2 (00:15→04:15)
[2020-02-27 01:21] LABS: POTASSIUM 3.5 mmol/L (3.5-5.1)
[2020-02-27 01:25] LABS: CREATININE 0.8 mg/dL (0.5-1.5); PHOSPHORUS 2.2 mg/dL (2.5-4.9)
[2020-02-27 01:26] LABS: BILIRUBIN,TOTAL 0.4 mg/dL (0.2-1.0); MAGNESIUM 2.16 mg/dL (1.80-2.40); TOTAL PROTEIN, SERUM 5.3 g/dL (6.0-8.3)
[2020-02-27] MEDS: METRONIDAZOLE 500MG/100ML BAG 100 ML IV SCH ×3 (02:46→18:44)
[2020-02-27 04:13] LABS: BASOPHILS % (AUTO) 0.5 % (0.0-5.0); EOSINOPHILS % (AUTO) 0.5 % (0.0-8.0); HEMATOCRIT 40.1 % (42-54); LYMPHOCYTES % (AUTO) 26.1 % (21.0-51.0); MEAN CORPUSCULAR HEMOGLOBIN 42.4 pg (27.0-33.0); MEAN CORPUSCULAR HGB CONC 50.1 g/dL (32.0-36.0); MEAN CORPUSCULAR VOLUME 84.6 fL (79-99); MONOCYTES % (AUTO) 6.2 % (3.0-13.0); NEUTROPHILS % (AUTO) 65.1 % (40.0-77.0); PLATELET COUNT (AUTO) 182 K/uL (130-400); RED BLOOD CELL COUNT(AUTO) 4.74 MIL/uL (4.50-6.20); RED CELL DISTRIBUTION WIDTH 15.5 % (11.0-15.5); WHITE BLOOD COUNT (AUTO) 8.8 K/uL (4.8-10.8)
[2020-02-27 05:00] LABS: BILIRUBIN,TOTAL 0.8 mg/dL (0.2-1.0); CREATININE 0.9 mg/dL (0.5-1.5); CRP QUANTITATIVE 31.9 mg/L (0.00-9.0); MAGNESIUM 2.3 mg/dL (1.80-2.40); PHOSPHORUS 1.1 mg/dL (2.5-4.9); POTASSIUM 3.5 mmol/L (3.5-5.1)
[2020-02-27] MEDS: ZOSYN 3.375GM+NS 50ML 50 ML IV SCH ×3 (05:25→20:52)
[2020-02-27] MEDS: POTASSIUM CHLORIDE 20MEQ/100ML 100 ML IV PRN (05:26)
[2020-02-27 05:52] LABS: ALBUMIN 2.8 g/dL (3.5-5.0); TOTAL PROTEIN, SERUM 4.6 g/dL (6.0-8.3)
[2020-02-27] MEDS: D5W-1/2 NS/20MEQ KCL 1,000 ML IV SCH ×3 (06:56→08:45)
[2020-02-27] MEDS: FAMOTIDINE/PF 20 MG/2 ML VIAL IV SCH ×2 (08:44→21:00)
[2020-02-27 08:46] LABS: BILIRUBIN,TOTAL 0.9 mg/dL (0.2-1.0); MAGNESIUM 2.1 mg/dL (1.80-2.40); PHOSPHORUS 0.9 mg/dL (2.5-4.9); POTASSIUM 3.6 mmol/L (3.5-5.1)
[2020-02-27] MEDS ORDERED: POTASSIUM CHLORIDE 40 MEQ in DEXTROSE 5%-LACTATED RINGERS 980 ML IV SCH (09:00)
[2020-02-27 09:33] LABS: CREATININE 0.8 mg/dL (0.5-1.5); TOTAL PROTEIN, SERUM 6.2 g/dL (6.0-8.3)
[2020-02-27 09:34] LABS: ALBUMIN 3.1 g/dL (3.5-5.0)
[2020-02-27] MEDS ORDERED: POTASSIUM PHOSPHATE IV PRN (12:00)
[2020-02-27] MEDS ORDERED: SODIUM CHLORIDE 0.9% IV PRN (12:00)
[2020-02-27 12:40] LABS: CREATININE 0.9 mg/dL (0.5-1.5); MAGNESIUM 2.2 mg/dL (1.80-2.40); POTASSIUM 3.6 mmol/L (3.5-5.1)
[2020-02-27] MEDS: NEUTRA-PHOS PACKET 1 EACH PO SCH (12:42)
[2020-02-27 12:58] LABS: ALBUMIN 2.5 g/dL (3.5-5.0); BILIRUBIN,TOTAL 1.1 mg/dL (0.2-1.0); PHOSPHORUS 0.9 mg/dL (2.5-4.9)
[2020-02-27 15:32] LABS: TOTAL PROTEIN, SERUM 4.9 g/dL (6.0-8.3)
[2020-02-27 17:22] LABS: ALBUMIN 2.8 g/dL (3.5-5.0); MAGNESIUM 2.1 mg/dL (1.80-2.40); PHOSPHORUS 1.6 mg/dL (2.5-4.9); POTASSIUM 3.4 mmol/L (3.5-5.1)
[2020-02-27] MEDS: POTASSIUM CHLORIDE 20 MEQ in DEXTROSE 5%-LACTATED RINGERS 990 ML IV SCH ×2 (17:22→20:52)
--- NOTE | 2020-02-27 17:37 | NUR ---
phosphate phosphate 1.6, previous Kphos dose still infusing
[2020-02-27 17:57] LABS: CREATININE 0.6 mg/dL (0.5-1.5); TOTAL PROTEIN, SERUM 4.7 g/dL (6.0-8.3)
[2020-02-27 20:53] LABS: CHLORIDE 102 mmol/L (101-111); POTASSIUM 3.8 mmol/L (3.5-5.1); SODIUM SERUM 133 mmol/L (136-145)
[2020-02-27 21:14] LABS: CARBON DIOXIDE 9 mmol/L (21-32)
[2020-02-27 21:47] LABS: GLUCOSE,RANDOM 194 mg/dL (70-105); UREA NITROGEN, BLOOD 4 mg/dL (7-18)
[2020-02-27 21:48] LABS: ALANINE AMINOTRANSFERASE 24 U/L (12-78); ASPARTATE AMINOTRANSFERASE 24 U/L (10-37); BILIRUBIN,TOTAL < 0.1 mg/dL (0.2-1.0); CREATININE 0.5 mg/dL (0.5-1.5); GLOMERULAR FILTR. RATE CALC 215 mL/min (>60); MAGNESIUM 1.44 mg/dL (1.80-2.40)
[2020-02-27 21:49] LABS: ALBUMIN 2.5 g/dL (3.5-5.0); TOTAL PROTEIN, SERUM 4.1 g/dL (6.0-8.3)
[2020-02-27] MEDS: MAGNESIUM 2GM PREMIX 50ML 50 ML IV SCH (23:26)
[2020-02-28] VITALS (13 sets, daily range): BP systolic 109–155; BP diastolic 56–86
[2020-02-28] MEDS ORDERED: SODIUM CHLORIDE 0.9% 100 ML IV ONE (00:20)
[2020-02-28] MEDS ORDERED: INSULIN HUMULIN R 100 UNIT/ML 3ML ONE (00:20)
[2020-02-28] MEDS: METRONIDAZOLE 500MG/100ML BAG 100 ML IV SCH ×3 (01:43→21:14)
[2020-02-28 04:17] LABS: BASOPHILS % (AUTO) 0.5 % (0.0-5.0); EOSINOPHILS % (AUTO) 1.2 % (0.0-8.0); HEMATOCRIT 40.3 % (42-54); MEAN CORPUSCULAR HEMOGLOBIN 39.2 pg (27.0-33.0); MEAN CORPUSCULAR HGB CONC 46.7 g/dL (32.0-36.0); NEUTROPHILS % (AUTO) 65.3 % (40.0-77.0); PLATELET COUNT (AUTO) 183 K/uL (130-400); RED CELL DISTRIBUTION WIDTH 15.2 % (11.0-15.5)
[2020-02-28] MEDS: ZOSYN 3.375GM+NS 50ML 50 ML IV SCH ×3 (05:54→21:14)
[2020-02-28 06:36] LABS: BILIRUBIN,TOTAL 0.9 mg/dL (0.2-1.0); POTASSIUM 3.6 mmol/L (3.5-5.1)
[2020-02-28 07:50] LABS: CREATININE 0.6 mg/dL (0.5-1.5); TOTAL PROTEIN, SERUM 6.1 g/dL (6.0-8.3)
[2020-02-28] MEDS: D5LR-20 MEQ KCL 1000 ML 1,000 ML IV SCH ×2 (09:10→21:15)
[2020-02-28 09:53] LABS: MAGNESIUM 2.4 mg/dL (1.80-2.40)
[2020-02-28] MEDS: FAMOTIDINE/PF 20 MG/2 ML VIAL IV SCH ×2 (09:56→23:00)
[2020-02-28] MEDS: NEUTRA-PHOS PACKET 1 EACH PO SCH (12:12)
[2020-02-28 18:28] LABS: ALBUMIN 3.1 g/dL (3.5-5.0); BILIRUBIN,TOTAL 0.7 mg/dL (0.2-1.0); CREATININE 0.7 mg/dL (0.5-1.5); POTASSIUM 3.9 mmol/L (3.5-5.1); TOTAL PROTEIN, SERUM 8.1 g/dL (6.0-8.3)
[2020-02-28 23:09] LABS: BILIRUBIN,TOTAL 0.4 mg/dL (0.2-1.0); CREATININE 0.8 mg/dL (0.5-1.5); POTASSIUM 3.7 mmol/L (3.5-5.1)
[2020-02-29] VITALS (12 sets, daily range): BP systolic 111–163; BP diastolic 55–105
[2020-02-29] MEDS: INSULIN REGULAR, HUMAN 3ML 100 UNIT in SODIUM CHLORIDE 0.9% 99 ML IV PRN ×2 (00:04)
[2020-02-29] MEDS: METRONIDAZOLE 500MG/100ML BAG 100 ML IV SCH ×3 (02:24→18:19)
[2020-02-29 04:20] LABS: BASOPHILS % (AUTO) 0.4 % (0.0-5.0); EOSINOPHILS % (AUTO) 1.4 % (0.0-8.0); HEMATOCRIT 38.8 % (42-54); LYMPHOCYTES % (AUTO) 35.8 % (21.0-51.0); MEAN CORPUSCULAR HEMOGLOBIN 33.1 pg (27.0-33.0); MEAN CORPUSCULAR HGB CONC 39.7 g/dL (32.0-36.0); MEAN CORPUSCULAR VOLUME 83.4 fL (79-99); MONOCYTES % (AUTO) 3.9 % (3.0-13.0); NEUTROPHILS % (AUTO) 57.1 % (40.0-77.0); PLATELET COUNT (AUTO) 190 K/uL (130-400); RED BLOOD CELL COUNT(AUTO) 4.65 MIL/uL (4.50-6.20); RED CELL DISTRIBUTION WIDTH 15.7 % (11.0-15.5); WHITE BLOOD COUNT (AUTO) 5.6 K/uL (4.8-10.8)
[2020-02-29] MEDS: ZOSYN 3.375GM+NS 50ML 50 ML IV SCH ×3 (05:06→20:25)
[2020-02-29] MEDS: D5LR-20 MEQ KCL 1000 ML 1,000 ML IV SCH ×4 (05:08→20:29)
[2020-02-29 05:17] LABS: POTASSIUM 3.8 mmol/L (3.5-5.1)
[2020-02-29 05:18] LABS: BILIRUBIN,TOTAL 0.4 mg/dL (0.2-1.0); CREATININE 0.5 mg/dL (0.5-1.5)
[2020-02-29 05:19] LABS: ALBUMIN 2.8 g/dL (3.5-5.0); TOTAL PROTEIN, SERUM 5.8 g/dL (6.0-8.3)
[2020-02-29] MEDS: FISH OIL 1000 MG/CAP PO SCH ×3 (08:23→20:26)
[2020-02-29] MEDS: FENOFIBRATE NANOCRYSTALLIZED 145 MG TAB PO SCH (08:23)
[2020-02-29] MEDS: FAMOTIDINE/PF 20 MG/2 ML VIAL IV SCH ×2 (08:23→20:26)
[2020-02-29 10:43] LABS: ALBUMIN 2.7 g/dL (3.5-5.0); BILIRUBIN,TOTAL 0.8 mg/dL (0.2-1.0); POTASSIUM 3.6 mmol/L (3.5-5.1)
[2020-02-29 11:01] LABS: CREATININE 0.4 mg/dL (0.5-1.5); TOTAL PROTEIN, SERUM 6.4 g/dL (6.0-8.3)
[2020-02-29] MEDS: NEUTRA-PHOS PACKET 1 EACH PO SCH (12:00)
[2020-02-29 16:01] LABS: LIPASE 87 U/L (114-286); TRIGLYCERIDES 942 mg/dL (30-200)
[2020-02-29 16:03] LABS: ALBUMIN 2.9 g/dL (3.5-5.0); BILIRUBIN,TOTAL 0.7 mg/dL (0.2-1.0); CREATININE 0.7 mg/dL (0.5-1.5); POTASSIUM 3.6 mmol/L (3.5-5.1)
[2020-02-29 16:37] LABS: TOTAL PROTEIN, SERUM 4.8 g/dL (6.0-8.3)
[2020-02-29] MEDS ORDERED: SODIUM CHLORIDE 0.9% 100 ML IV ONE (18:21)
[2020-02-29] MEDS: ATORVASTATIN CALCIUM 40 MG TABLET PO SCH (20:25)
[2020-03-01] VITALS (21 sets, daily range): BP systolic 93–157; BP diastolic 44–89
[2020-03-01] LABS: BILIRUBIN,TOTAL 0.2 mg/dL (0.2-1.0); CREATININE 0.5 mg/dL (0.5-1.5)
[2020-03-01 00:01] LABS: ALBUMIN 2.9 g/dL (3.5-5.0); TOTAL PROTEIN, SERUM 5.6 g/dL (6.0-8.3)
[2020-03-01 00:02] LABS: POTASSIUM 2.8 mmol/L (3.5-5.1)
[2020-03-01] MEDS: POTASSIUM CHLORIDE 20MEQ/100ML 100 ML IV PRN ×2 (01:07→05:56)
[2020-03-01] MEDS: METRONIDAZOLE 500MG/100ML BAG 100 ML IV SCH ×3 (02:43→18:21)
[2020-03-01 04:06] LABS: BASOPHILS % (AUTO) 0.3 % (0.0-5.0); EOSINOPHILS % (AUTO) 1.2 % (0.0-8.0); HEMATOCRIT 39.8 % (42-54); LYMPHOCYTES % (AUTO) 33.1 % (21.0-51.0); MEAN CORPUSCULAR HEMOGLOBIN 31.2 pg (27.0-33.0); MEAN CORPUSCULAR HGB CONC 37.2 g/dL (32.0-36.0); MEAN CORPUSCULAR VOLUME 83.8 fL (79-99); MONOCYTES % (AUTO) 5.2 % (3.0-13.0); NEUTROPHILS % (AUTO) 58.9 % (40.0-77.0); PLATELET COUNT (AUTO) 155 K/uL (130-400); RED BLOOD CELL COUNT(AUTO) 4.75 MIL/uL (4.50-6.20); RED CELL DISTRIBUTION WIDTH 15.6 % (11.0-15.5); WHITE BLOOD COUNT (AUTO) 6.8 K/uL (4.8-10.8)
[2020-03-01 04:25] LABS: BILIRUBIN,TOTAL 1.7 mg/dL (0.2-1.0); CREATININE 0.7 mg/dL (0.5-1.5); POTASSIUM 3.2 mmol/L (3.5-5.1)
[2020-03-01 04:32] LABS: CHOLESTEROL 378 mg/dL (<200); HDL CHOLESTEROL 31 mg/dL (29-71); LDL DIRECT 249 mg/dL (0-99); TRIGLYCERIDES 929 mg/dL (30-200)
[2020-03-01] MEDS: ZOSYN 3.375GM+NS 50ML 50 ML IV SCH ×3 (05:56→21:07)
[2020-03-01 06:24] LABS: ALBUMIN 2.8 g/dL (3.5-5.0); TOTAL PROTEIN, SERUM 5.2 g/dL (6.0-8.3)
[2020-03-01] MEDS ORDERED: INSULIN GLARGINE 100 UNITS/ML 10 ML VIAL SQ SCH (08:00)
[2020-03-01] MEDS: FISH OIL 1000 MG/CAP PO SCH ×3 (08:15→21:07)
[2020-03-01] MEDS: FENOFIBRATE NANOCRYSTALLIZED 145 MG TAB PO SCH (08:15)
[2020-03-01] MEDS: FAMOTIDINE/PF 20 MG/2 ML VIAL IV SCH ×2 (08:15→21:07)
[2020-03-01] MEDS: INSULIN LISPRO 100 UNIT/ML 3ML SQ SCH ×4 (08:17→11:46)
[2020-03-01] MEDS: D5LR-20 MEQ KCL 1000 ML 1,000 ML IV SCH ×2 (08:21→16:48)
[2020-03-01] MEDS ORDERED: PHARMACY COMMUNICATION MISC SCH (13:45)
[2020-03-01] MEDS: INSULIN REGULAR, HUMAN 3ML 100 UNIT in SODIUM CHLORIDE 0.9% 99 ML IV PRN ×4 (14:12→21:22)
--- NOTE | 2020-03-01 16:09 | NUR ---
PT. SITTING UP IN BED WATCHING TELEVISION. DENIES ANY C/O AT THIS TIME. BS-64, ASYMPTOMATIC. PROVIDED PT. WITH AN APPLE AND APPLE JUICE. D5LR W/KCL TO BE RESTARTED ORDERED.
[2020-03-01] MEDS: ATORVASTATIN CALCIUM 40 MG TABLET PO SCH (21:07)
[2020-03-02] VITALS (21 sets, daily range): BP systolic 96–135; BP diastolic 49–84
[2020-03-02] MEDS: METRONIDAZOLE 500MG/100ML BAG 100 ML IV SCH ×3 (02:33→19:58)
[2020-03-02] MEDS: D5LR-20 MEQ KCL 1000 ML 1,000 ML IV SCH ×3 (02:45→22:45)
[2020-03-02 04:22] LABS: BASOPHILS % (AUTO) 0.5 % (0.0-5.0); EOSINOPHILS % (AUTO) 1.1 % (0.0-8.0); HEMATOCRIT 40.2 % (42-54); LYMPHOCYTES % (AUTO) 38.8 % (21.0-51.0); MEAN CORPUSCULAR HGB CONC 35.8 g/dL (32.0-36.0); MEAN CORPUSCULAR VOLUME 83.8 fL (79-99); MONOCYTES % (AUTO) 6.3 % (3.0-13.0); NEUTROPHILS % (AUTO) 51.6 % (40.0-77.0); PLATELET COUNT (AUTO) 153 K/uL (130-400); RED CELL DISTRIBUTION WIDTH 15.1 % (11.0-15.5); WHITE BLOOD COUNT (AUTO) 6.5 K/uL (4.8-10.8)
[2020-03-02 04:45] LABS: ALBUMIN 2.6 g/dL (3.5-5.0); BILIRUBIN,TOTAL 0.5 mg/dL (0.2-1.0); CREATININE 0.5 mg/dL (0.5-1.5); POTASSIUM 3.1 mmol/L (3.5-5.1); TOTAL PROTEIN, SERUM 6.6 g/dL (6.0-8.3)
[2020-03-02] MEDS: ZOSYN 3.375GM+NS 50ML 50 ML IV SCH ×3 (06:09→21:07)
[2020-03-02] MEDS: FISH OIL 1000 MG/CAP PO SCH ×3 (08:50→21:07)
[2020-03-02] MEDS: FENOFIBRATE NANOCRYSTALLIZED 145 MG TAB PO SCH (08:50)
[2020-03-02] MEDS: POTASSIUM CHLORIDE 20MEQ/100ML 100 ML IV PRN (08:51)
[2020-03-02] MEDS: FAMOTIDINE/PF 20 MG/2 ML VIAL IV SCH ×2 (09:20→21:07)
[2020-03-02] MEDS: ATORVASTATIN CALCIUM 40 MG TABLET PO SCH (21:07)
[2020-03-03] VITALS (16 sets, daily range): BP systolic 109–138; BP diastolic 64–88
[2020-03-03] MEDS: INSULIN REGULAR, HUMAN 3ML 100 UNIT in SODIUM CHLORIDE 0.9% 99 ML IV PRN ×2 (00:03)
[2020-03-03] MEDS: METRONIDAZOLE 500MG/100ML BAG 100 ML IV SCH ×3 (02:24→20:06)
[2020-03-03 03:35] LABS: BASOPHILS % (AUTO) 0.5 % (0.0-5.0); EOSINOPHILS % (AUTO) 1.4 % (0.0-8.0); HEMATOCRIT 40.7 % (42-54); LYMPHOCYTES % (AUTO) 41.4 % (21.0-51.0); MEAN CORPUSCULAR HEMOGLOBIN 28.9 pg (27.0-33.0); MEAN CORPUSCULAR HGB CONC 34.2 g/dL (32.0-36.0); MEAN CORPUSCULAR VOLUME 84.6 fL (79-99); MONOCYTES % (AUTO) 6.7 % (3.0-13.0); NEUTROPHILS % (AUTO) 48.4 % (40.0-77.0); PLATELET COUNT (AUTO) 99 K/uL (130-400); RED BLOOD CELL COUNT(AUTO) 4.81 MIL/uL (4.50-6.20); RED CELL DISTRIBUTION WIDTH 15.2 % (11.0-15.5); WHITE BLOOD COUNT (AUTO) 5.7 K/uL (4.8-10.8)
[2020-03-03] MEDS: D5LR-20 MEQ KCL 1000 ML 1,000 ML IV SCH (03:53)
[2020-03-03 03:54] LABS: ALBUMIN 2.6 g/dL (3.5-5.0); BILIRUBIN,TOTAL 0.5 mg/dL (0.2-1.0); CREATININE 0.5 mg/dL (0.5-1.5); POTASSIUM 3.4 mmol/L (3.5-5.1); TOTAL PROTEIN, SERUM 6.6 g/dL (6.0-8.3)
[2020-03-03] MEDS: LIDOCAINE HCL-MPF 1% 2ML VIAL IJ PRN (04:27)
[2020-03-03] MEDS: POTASSIUM CHLORIDE 20MEQ/100ML 100 ML IV PRN ×2 (04:27→11:23)
[2020-03-03] MEDS: ZOSYN 3.375GM+NS 50ML 50 ML IV SCH ×3 (04:28→20:06)
[2020-03-03] MEDS ORDERED: NOREPINEPHRINE 4MG/NS 250ML 250 ML IV ONE (07:42)
[2020-03-03] MEDS: FENOFIBRATE NANOCRYSTALLIZED 145 MG TAB PO SCH (09:47)
[2020-03-03] MEDS: FAMOTIDINE/PF 20 MG/2 ML VIAL IV SCH ×2 (09:47→20:06)
[2020-03-03] MEDS: FISH OIL 1000 MG/CAP PO SCH ×3 (09:47→20:06)
[2020-03-03 10:52] LABS: CREATININE 0.6 mg/dL (0.5-1.5); MAGNESIUM 1.7 mg/dL (1.80-2.40); POTASSIUM 3.5 mmol/L (3.5-5.1)
[2020-03-03] MEDS: MAGNESIUM 2GM PREMIX 50ML 50 ML IV SCH (11:23)
[2020-03-03] MEDS: INSULIN LISPRO 100 UNIT/ML 3ML SQ SCH ×5 (11:32→20:08)
[2020-03-03] MEDS: INSULIN GLARGINE 100 UNITS/ML 10 ML VIAL SQ SCH (11:33)
--- NOTE | 2020-03-03 14:28 | NUR ---
REPORT CALLED TO COLETTE RODRIGES ON , ALL QUESTIONS ANSWERED.
--- NOTE | 2020-03-03 14:35 | NUR ---
PATIENT MOVED TO 309 WITH RN AND ALL BELONGINGS. NURSE AND AIDE AWARE OF PATIENT'S ARRIVAL TO NEW ROOM.
[2020-03-03] MEDS: ATORVASTATIN CALCIUM 40 MG TABLET PO SCH (20:06)
[2020-03-03] MEDS ORDERED: HYDROMORPHONE HCL 0.5 MG/0.5 ML ML IV PRN (20:30)
[2020-03-03] MEDS: HYDROMORPHONE 1 MG/1 ML AMP IVP PRN (22:56)
[2020-03-04] MEDS: HYDROMORPHONE 1 MG/1 ML AMP IVP PRN ×8 (00:18→22:54)
[2020-03-04] MEDS: METRONIDAZOLE 500MG/100ML BAG 100 ML IV SCH ×3 (02:23→19:01)
[2020-03-04 03:30] VITALS: BP 111/66
[2020-03-04] MEDS: ZOSYN 3.375GM+NS 50ML 50 ML IV SCH ×3 (04:39→19:57)
[2020-03-04] MEDS: INSULIN LISPRO 100 UNIT/ML 3ML SQ SCH ×5 (05:00→20:14)
[2020-03-04 06:03] LABS: BASOPHILS % (AUTO) 0.3 % (0.0-5.0); EOSINOPHILS % (AUTO) 0.8 % (0.0-8.0); HEMATOCRIT 44.2 % (42-54); LYMPHOCYTES % (AUTO) 23.2 % (21.0-51.0); MEAN CORPUSCULAR HEMOGLOBIN 28.8 pg (27.0-33.0); MEAN CORPUSCULAR HGB CONC 33.5 g/dL (32.0-36.0); MONOCYTES % (AUTO) 9.2 % (3.0-13.0); NEUTROPHILS % (AUTO) 65.2 % (40.0-77.0); PLATELET COUNT (AUTO) 136 K/uL (130-400); RED BLOOD CELL COUNT(AUTO) 5.14 MIL/uL (4.50-6.20); RED CELL DISTRIBUTION WIDTH 15.2 % (11.0-15.5); WHITE BLOOD COUNT (AUTO) 7.5 K/uL (4.8-10.8)
[2020-03-04 06:30] LABS: BILIRUBIN,TOTAL 0.6 mg/dL (0.2-1.0); CREATININE 0.6 mg/dL (0.5-1.5); POTASSIUM 3.6 mmol/L (3.5-5.1)
[2020-03-04] MEDS ORDERED: MAGNESIUM 2GM PREMIX 50ML 50 ML IV SCH (06:30)
[2020-03-04] MEDS ORDERED: INSULIN LISPRO 100 UNIT/ML 3ML SQ SCH ×2 (07:30→17:00)
[2020-03-04 07:41] LABS: MAGNESIUM 2.2 mg/dL (1.80-2.40)
[2020-03-04] MEDS ORDERED: INSULIN GLARGINE 100 UNITS/ML 10 ML VIAL SQ SCH (08:00)
[2020-03-04 08:18] VITALS: BP 96/63
[2020-03-04] MEDS: FISH OIL 1000 MG/CAP PO SCH ×3 (08:45→19:57)
[2020-03-04] MEDS: FENOFIBRATE NANOCRYSTALLIZED 145 MG TAB PO SCH (08:45)
[2020-03-04] MEDS: FAMOTIDINE/PF 20 MG/2 ML VIAL IV SCH ×2 (08:45→19:57)
--- NOTE | 2020-03-04 09:50 | NUR ---
ANTICIPATE DC TO HOME IW BLOOD SUGARD STABLE , TEXT TO REDUCTION FURNACE OPERATOR RE CURRENT REGIME, VERY EXPENSIVE OUT OF POCKET COST, IW FOLLOW UP. 30 INSULIN IS AFFORDABLE FOR PATIENTS WITHOUT INSURANCE POSSIBLE SWITCH PRIOR TO DISCHARGE AND MONITOR FOR DRORECT DOSING? WILL PROVIDE [facility] AND OTHER DISCOUNT MED INFO Addendum: 03/04/20 at 0974 by MARQUIS NEVAREZ RN CM Amended: Links added.
[2020-03-04] MEDS: INSULIN GLARGINE 100 UNITS/ML 10 ML VIAL SQ SCH (10:30)
--- NOTE | 2020-03-04 13:33 | NUR ---
RDSCREEN - LOS X 9 Pt admitted with DKA, acute pancreatitis. Pt with N/V/abdominal. Decreased appetite. 75gm CC, Low Fat, Heart Healthy, NCS diet order in place. Monitored labs: BG 224, Ca 8.4, Alb 3.0, TG 529, Chol 408, LDL 225. Obesity Class II. Recommend 60gm CC diet modification Recommend 60mL ProMod BID Faxed Nutrition Education to 3B ([phone]), RN notified RD to continue to monitor. Please notify as additional nutrition concerns arise. Thank you. Addendum: 03/04/20 at [address] Amended: Links added.
--- NOTE | 2020-03-04 14:48 | NUR ---
NUTRITION EDUCATION Heart Healthy, Low Fat Nutrition Education. RN-Assisted Nutrition Education faxed to [phone]), RN notified. Addendum: 03/04/20 at [address] Amended: Links added.
[2020-03-04 15:13] VITALS: BP 113/65
[2020-03-04 18:17] VITALS: BP 117/68
[2020-03-04] MEDS: ATORVASTATIN CALCIUM 40 MG TABLET PO SCH (19:57)
[2020-03-04 20:00] VITALS: BP 103/58
[2020-03-04 23:35] VITALS: BP 105/59
[2020-03-05] MEDS: HYDROMORPHONE 1 MG/1 ML AMP IVP PRN ×4 (00:14→05:17)
[2020-03-05] MEDS: METRONIDAZOLE 500MG/100ML BAG 100 ML IV SCH ×2 (02:27→10:45)
[2020-03-05 03:56] VITALS: BP 93/53
[2020-03-05 04:29] LABS: BASOPHILS % (AUTO) 0.2 % (0.0-5.0); EOSINOPHILS % (AUTO) 0.7 % (0.0-8.0); HEMATOCRIT 45.7 % (42-54); LYMPHOCYTES % (AUTO) 17.6 % (21.0-51.0); MEAN CORPUSCULAR HEMOGLOBIN 29.4 pg (27.0-33.0); MEAN CORPUSCULAR HGB CONC 33.7 g/dL (32.0-36.0); MEAN CORPUSCULAR VOLUME 87.4 fL (79-99); MONOCYTES % (AUTO) 7.7 % (3.0-13.0); NEUTROPHILS % (AUTO) 72.4 % (40.0-77.0); PLATELET COUNT (AUTO) 139 K/uL (130-400); RED BLOOD CELL COUNT(AUTO) 5.23 MIL/uL (4.50-6.20); WHITE BLOOD COUNT (AUTO) 8.3 K/uL (4.8-10.8)
[2020-03-05 04:30] LABS: CREATININE 0.7 mg/dL (0.5-1.5); POTASSIUM 3.5 mmol/L (3.5-5.1)
[2020-03-05] MEDS: ZOSYN 3.375GM+NS 50ML 50 ML IV SCH ×2 (04:31→13:00)
[2020-03-05] MEDS: INSULIN LISPRO 100 UNIT/ML 3ML SQ SCH ×4 (05:22→12:08)
[2020-03-05 08:00] VITALS: BP 107/64
[2020-03-05] MEDS ORDERED: INSULIN GLARGINE 100 UNITS/ML 10 ML VIAL SQ SCH ×2 (08:00)
[2020-03-05] MEDS: FENOFIBRATE NANOCRYSTALLIZED 145 MG TAB PO SCH (08:13)
[2020-03-05] MEDS: FAMOTIDINE/PF 20 MG/2 ML VIAL IV SCH (08:14)
[2020-03-05] MEDS: FISH OIL 1000 MG/CAP PO SCH ×2 (08:14→15:09)
[2020-03-05 12:00] VITALS: BP 125/81
--- NOTE | 2020-03-05 16:00 | NUR ---
DISCHARGE SUMMARY . REVIEW WITH PT. THE INSULIN EDUCATION. AND CARE AND TO FOLLOW WITH DR. MARIE FOR CONT INSULIN AND BLOOD SUGAR MONITOR . SL TO HIS LFA ,WAS DC , WITH NO REDNESSSS AND A DRSG APPLICATION . AND THE RFA, AMIE WAS DC . NOTED NO REDNESS TO SITE, AGAIN REVIEW . DIABETIC TEACHING . REVIEW QUESTION .
== END 2020-03-05 16:00 | disposition home or self-care (01) | DRG 871 ==
LOC: EDH 16:22 → EDHIP 16:23 → 2BH 02-25 17:51 → DAHIP 03-02 18:15 → 3BH 03-03 14:39
PROVIDERS: ADMIT Internal Medicine; ATTEND Internal Medicine
DX: A41.9 Sepsis, unspecified organism (principal); K85.90 Acute pancreatitis without necrosis or infection, unspecified; E11.10 Type 2 diabetes mellitus with ketoacidosis without coma; K65.0 Generalized (acute) peritonitis; E87.1 Hypo-osmolality and hyponatremia; N17.9 Acute kidney failure, unspecified; I10 Essential (primary) hypertension; E78.5 Hyperlipidemia, unspecified; Z20.828 Contact with and (suspected) exposure to other viral communicable diseases; E86.0 Dehydration; E87.6 Hypokalemia; E83.39 Other disorders of phosphorus metabolism; L30.9 Dermatitis, unspecified; E78.1 Pure hyperglyceridemia; E86.1 Hypovolemia; E66.9 Obesity, unspecified; Z68.35 Body mass index [BMI] 35.0-35.9, adult; Z79.4 Long term (current) use of insulin; Z91.19 Patient's noncompliance with other medical treatment and regimen; Z83.79 Family history of other diseases of the digestive system; Z84.89 Family history of other specified conditions; Z83.3 Family history of diabetes mellitus; Z82.49 Family history of ischemic heart disease and other diseases of the circulatory system
CPT/HCPCS: 36415; 36600; 71045; 74177; 80048; 80053; 80061; 81001; 82010; 82435; 82465; 82550; 82803; 82947; 82948; 83036; 83605; 83615; 83690; 83735; 84100; 84132; 84145; 84295; 84478; 84484; 85018; 85025; 85027; 85610; 85730; 86140; 87040; 87426; 93005; G0378; J0610; J1170; J1815; J2405; J2543; J3475; J3480; J3490; J7040; J7120; Q9967; U0003

== ENCOUNTER 2020-08-31 16:38 | Inpatient (IN) | payer SELFPAY ==
[~2020-08-31] VITALS: Ht 167.6 cm; Wt 91.5 kg
[~2020-08-31 16:38] MED LIST changes: -HUM10VIA SQ; -METF-444 PO; -SULF1TAB42 PO
[2020-08-31] MEDS ORDERED: PROCHLORPERAZINE EDISYLATE 10 MG/2 ML VIAL ONE (17:00)
[2020-08-31] MEDS ORDERED: FAMOTIDINE/PF 20 MG/2 ML VIAL IV ONE ×2 (17:00→21:36)
[2020-08-31 17:04] LABS: BASOPHILS % (AUTO) 0.7 % (0.0-5.0); EOSINOPHILS % (AUTO) 0.1 % (0.0-8.0); HEMATOCRIT 47.9 % (42-54); LYMPHOCYTES % (AUTO) 15.4 % (21.0-51.0); MEAN CORPUSCULAR HEMOGLOBIN 37.3 pg (27.0-33.0); MEAN CORPUSCULAR HGB CONC 42.8 g/dL (32.0-36.0); MEAN CORPUSCULAR VOLUME 87.1 fL (79-99); MONOCYTES % (AUTO) 5.4 % (3.0-13.0); NEUTROPHILS % (AUTO) 77.3 % (40.0-77.0); PLATELET COUNT (AUTO) 204 K/uL (130-400); RED CELL DISTRIBUTION WIDTH 14.6 % (11.0-15.5); WHITE BLOOD COUNT (AUTO) 16.7 K/uL (4.8-10.8)
[2020-08-31 17:31] LABS: ABG BASE EXCESS -17.6 mmol/L (-2.0-3.0); ABG HCO3 7.6 mmol/L (21.0-28.0); ABG OXYGEN SATURATION 97.4 % (95.0-99.0); ABG PCO2 19 mmHg (35-48)
[2020-08-31 17:54] LABS: ALBUMIN 3.8 g/dL (3.5-5.0); BILIRUBIN,TOTAL 0.5 mg/dL (0.2-1.0); CREATININE 0.7 mg/dL (0.5-1.5); TOTAL PROTEIN, SERUM 5.6 g/dL (6.0-8.3)
[2020-08-31] MEDS ORDERED: INSULIN HUMULIN R 100 UNIT/ML 3ML ONE ×2 (17:55→21:38)
[2020-08-31] MEDS ORDERED: DEXTROSE 50%-WATER 50 ML DISP.SYRIN IV PRN (19:00)
[2020-08-31] MEDS ORDERED: GLUCAGON 1MG KIT 1 MG ML IM PRN (19:00)
[2020-08-31] MEDS: LACTATED RINGERS 1000ML 1,000 ML IV SCH (19:00)
[2020-08-31] MEDS ORDERED: POTASSIUM CHLORIDE 20MEQ/100ML 100 ML IV PRN (19:15)
[2020-08-31] MEDS ORDERED: POTASSIUM CHLORIDE 10% ELIXIR 20 MEQ/15 ML UDCUP PO PRN (19:15)
[2020-08-31] MEDS ORDERED: DIPHENHYDRAMINE HCL 25 MG CAPSULE PO PRN (19:30)
[2020-08-31] MEDS ORDERED: GUAIFENESIN-DM 200/20 MG 10 ML PO PRN (19:30)
[2020-08-31] MEDS ORDERED: ACETAMINOPHEN 325 MG TAB PO PRN ×2 (19:30)
[2020-08-31] MEDS ORDERED: MORPHINE SULFATE 4 MG/1ML SYG IV PRN (19:30)
[2020-08-31] MEDS ORDERED: MORPHINE SULFATE 2 MG/ML 1ML SYG IV PRN (19:30)
[2020-08-31] MEDS ORDERED: ONDANSETRON HCL 4 MG/2 ML VIAL IV PRN (19:30)
[2020-08-31] MEDS ORDERED: LACTULOSE 20 GM/30 ML UDCUP PO PRN (19:30)
[2020-08-31] MEDS ORDERED: NITROGLYCERIN 0.4 MG SL TAB SL PRN (19:30)
[2020-08-31] MEDS ORDERED: MAG HYDROX/AL HYDROX/SIMETH ES 30 ML SUSP UDCUP PO PRN (19:30)
[2020-08-31] MEDS ORDERED: DiphenhydrAMINE HCL 50 MG/ML VIAL IV PRN (19:30)
[2020-08-31 19:57] LABS: CHLORIDE 98 mmol/L (101-111); GLUCOSE,RANDOM 323 mg/dL (70-105); POTASSIUM 4.2 mmol/L (3.5-5.1); SODIUM SERUM 130 mmol/L (136-145)
[2020-08-31 20:02] LABS: CARBON DIOXIDE < 5 mmol/L (21-32)
[2020-08-31 20:29] LABS: CREATININE 0.6 mg/dL (0.5-1.5); GLOMERULAR FILTR. RATE CALC 173 mL/min (>60); UREA NITROGEN, BLOOD 8 mg/dL (7-18)
[2020-08-31] MEDS: FAMOTIDINE/PF 20 MG/2 ML VIAL IV SCH (21:00)
[2020-08-31] MEDS: DEXTROSE 5 %-0.225 % NACL 500 ML IV SCH (21:15)
[2020-08-31] MEDS ORDERED: SODIUM CHLORIDE 0.9% 100 ML IV ONE (21:34)
[2020-08-31] MEDS ORDERED: LACTATED RINGERS 1000ML 1,000 ML IV ONE (21:36)
[2020-08-31 22:39] LABS: APPEARANCE,URINE Clear (CLEAR); BILIRUBIN,URINE Negative (NEGATIVE); COLOR,URINE Yellow (YELLOW); GLUCOSE, URINE (UA) >=1000 mg/dL (NEGATIVE); KETONES,URINE >=160 mg/dL (NEGATIVE); LEUKOCYTE ESTERASE ,URINE Negative (NEGATIVE); NITRATE,URINE Negative (NEGATIVE); OCCULT BLOOD,URINE Negative (NEGATIVE); PROTEIN,URINE POS 2+ mg/dL (NEGATIVE); UROBILINOGEN,URINE 0.2 mg/dL (0.2-1.0)
[2020-08-31 22:58] LABS: BACTERIA,URINE None Seen /HPF (None Seen); MUCUS,URINE Few LPF (None Seen); RBC,URINE 0-1 /HPF (0-1); SQUAMOUS EPITHELIAL CELL,UR Few /HPF (0-2); WBC,URINE 0-1 /HPF (0-1)
[2020-08-31 23:12] LABS: POTASSIUM 4.3 mmol/L (3.5-5.1)
[2020-08-31 23:13] LABS: CREATININE 0.8 mg/dL (0.5-1.5)
[2020-09-01] VITALS (9 sets, daily range): BP systolic 106–131; BP diastolic 58–86
[2020-09-01] MEDS: DEXTROSE 5 %-0.225 % NACL 500 ML IV SCH (00:07)
[2020-09-01 03:13] LABS: POTASSIUM 5.7 mmol/L (3.5-5.1)
[2020-09-01 03:20] LABS: CREATININE 0.7 mg/dL (0.5-1.5)
[2020-09-01 04:48] LABS: ABG BASE EXCESS -17.5 mmol/L (-2.0-3.0); ABG HCO3 7.8 mmol/L (21.0-28.0); ABG OXYGEN SATURATION 98.1 % (95.0-99.0); ABG PCO2 19 mmHg (35-48)
[2020-09-01 04:50] LABS: ABG BASE EXCESS -17.3 mmol/L (-2.0-3.0); ABG HCO3 7.8 mmol/L (21.0-28.0); ABG OXYGEN SATURATION 98.2 % (95.0-99.0); ABG PCO2 19 mmHg (35-48)
[2020-09-01] MEDS ORDERED: ONDANSETRON HCL 4 MG/2 ML VIAL ONE ×2 (05:13→09:58)
[2020-09-01] MEDS ORDERED: LACTATED RINGERS 1000ML 1,000 ML IV ONE ×2 (05:14→07:20)
[2020-09-01 06:08] LABS: POTASSIUM 4.2 mmol/L (3.5-5.1)
[2020-09-01 06:09] LABS: CREATININE 0.4 mg/dL (0.5-1.5)
[2020-09-01 06:25] LABS: CHOLESTEROL 185 mg/dL (<200); HDL CHOLESTEROL 22 mg/dL (29-71); LDL DIRECT 65 mg/dL (0-99); TRIGLYCERIDES 1107 mg/dL (30-200)
[2020-09-01] MEDS ORDERED: INSULIN HUMULIN R 100 UNIT/ML 3ML ONE (07:32)
[2020-09-01] MEDS ORDERED: SODIUM CHLORIDE 0.9% 100 ML IV ONE (07:35)
[2020-09-01] MEDS ORDERED: ENOXAPARIN SODIUM 30 MG/0.3 ML SQ ONE (08:16)
[2020-09-01] MEDS ORDERED: FAMOTIDINE/PF 20 MG/2 ML VIAL IV ONE (08:17)
[2020-09-01] MEDS ORDERED: DEXTROSE 5 % AND 0.9 % NACL 1,000 ML IV ONE (08:23)
[2020-09-01] MEDS: FAMOTIDINE/PF 20 MG/2 ML VIAL IV SCH ×2 (09:00→20:35)
[2020-09-01] MEDS: ENOXAPARIN SODIUM 30 MG/0.3 ML SQ SCH (09:00)
[2020-09-01] MEDS ORDERED: PROMETHAZINE HCL 25 MG/ML 1ML AMPULE IM PRN (12:30)
[2020-09-01] MEDS ORDERED: SODIUM CHLORIDE 0.9% 50 ML IV ONE (12:31)
[2020-09-01 13:54] LABS: BASOPHILS % (AUTO) 0.5 % (0.0-5.0); EOSINOPHILS % (AUTO) 0.1 % (0.0-8.0); HEMATOCRIT 44.4 % (42-54); LYMPHOCYTES % (AUTO) 11.3 % (21.0-51.0); MEAN CORPUSCULAR HEMOGLOBIN 30.8 pg (27.0-33.0); MEAN CORPUSCULAR HGB CONC 35.8 g/dL (32.0-36.0); MEAN CORPUSCULAR VOLUME 85.9 fL (79-99); NEUTROPHILS % (AUTO) 82.5 % (40.0-77.0); PLATELET COUNT (AUTO) 177 K/uL (130-400); RED BLOOD CELL COUNT(AUTO) 5.17 MIL/uL (4.50-6.20); RED CELL DISTRIBUTION WIDTH 15.2 % (11.0-15.5); WHITE BLOOD COUNT (AUTO) 7.8 K/uL (4.8-10.8)
[2020-09-01 15:11] LABS: CREATININE 0.8 mg/dL (0.5-1.5)
[2020-09-01] MEDS: INSULIN REGULAR, HUMAN 3ML 100 UNIT in SODIUM CHLORIDE 0.9% 99 ML IV PRN ×10 (15:12→18:58)
[2020-09-01] MEDS: POTASSIUM CHLORIDE 20 MEQ ERTAB PO PRN ×5 (15:32→23:31)
[2020-09-01] MEDS: ATORVASTATIN CALCIUM 40 MG TABLET PO SCH (15:43)
[2020-09-01] MEDS: FENOFIBRATE NANOCRYSTALLIZED 145 MG TAB PO SCH (16:04)
[2020-09-01] MEDS: LACTATED RINGERS 1000ML 1,000 ML IV SCH (16:07)
[2020-09-01] MEDS ORDERED: INSU100V SQ (17:42)
[2020-09-01] MEDS ORDERED: ATOR40TA69 PO (17:43)
[2020-09-01] MEDS: POTASSIUM CHLORIDE 40 MEQ in DEXTROSE 5%-LACTATED RINGERS 1,000 ML IV SCH ×2 (19:27→23:31)
[2020-09-01 23:00] LABS: CREATININE 0.8 mg/dL (0.5-1.5); POTASSIUM 3.2 mmol/L (3.5-5.1)
[2020-09-02] VITALS (22 sets, daily range): BP systolic 99–138; BP diastolic 59–91
[2020-09-02] MEDS: POTASSIUM CHLORIDE 20 MEQ ERTAB PO PRN ×4 (01:11→07:51)
[2020-09-02 03:35] LABS: BASOPHILS % (AUTO) 0.2 % (0.0-5.0); EOSINOPHILS % (AUTO) 0.8 % (0.0-8.0); HEMATOCRIT 38.1 % (42-54); LYMPHOCYTES % (AUTO) 25.2 % (21.0-51.0); MEAN CORPUSCULAR HEMOGLOBIN 30.1 pg (27.0-33.0); MEAN CORPUSCULAR HGB CONC 35.4 g/dL (32.0-36.0); MEAN CORPUSCULAR VOLUME 84.9 fL (79-99); MONOCYTES % (AUTO) 6.7 % (3.0-13.0); NEUTROPHILS % (AUTO) 66.3 % (40.0-77.0); PLATELET COUNT (AUTO) 122 K/uL (130-400); RED BLOOD CELL COUNT(AUTO) 4.49 MIL/uL (4.50-6.20); RED CELL DISTRIBUTION WIDTH 15.5 % (11.0-15.5); WHITE BLOOD COUNT (AUTO) 5.2 K/uL (4.8-10.8)
[2020-09-02 03:54] LABS: ALBUMIN 2.5 g/dL (3.5-5.0); BILIRUBIN,TOTAL 0.6 mg/dL (0.2-1.0); CREATININE 0.8 mg/dL (0.5-1.5); POTASSIUM 3.3 mmol/L (3.5-5.1); TOTAL PROTEIN, SERUM 6.7 g/dL (6.0-8.3)
[2020-09-02] MEDS: POTASSIUM CHLORIDE 40 MEQ in DEXTROSE 5%-LACTATED RINGERS 1,000 ML IV SCH ×3 (05:48→19:58)
[2020-09-02] MEDS: ATORVASTATIN CALCIUM 40 MG TABLET PO SCH (08:43)
[2020-09-02] MEDS: POTASSIUM CHLORIDE 20MEQ/100ML 100 ML IV PRN ×3 (08:43→23:08)
[2020-09-02] MEDS: FENOFIBRATE NANOCRYSTALLIZED 145 MG TAB PO SCH (08:44)
[2020-09-02] MEDS: FAMOTIDINE/PF 20 MG/2 ML VIAL IV SCH ×2 (08:44→20:02)
[2020-09-02] MEDS: ENOXAPARIN SODIUM 30 MG/0.3 ML SQ SCH (08:44)
[2020-09-02 09:17] LABS: CREATININE 0.7 mg/dL (0.5-1.5); POTASSIUM 3.9 mmol/L (3.5-5.1)
[2020-09-02 15:29] LABS: CREATININE 0.7 mg/dL (0.5-1.5); POTASSIUM 3.8 mmol/L (3.5-5.1)
[2020-09-02 21:25] LABS: CREATININE 0.8 mg/dL (0.5-1.5); POTASSIUM 3.6 mmol/L (3.5-5.1)
[2020-09-03] VITALS (13 sets, daily range): BP systolic 121–139; BP diastolic 64–91
[2020-09-03] MEDS: POTASSIUM CHLORIDE 40 MEQ in DEXTROSE 5%-LACTATED RINGERS 1,000 ML IV SCH ×2 (01:51→07:16)
[2020-09-03 03:52] LABS: CREATININE 0.7 mg/dL (0.5-1.5); POTASSIUM 3.7 mmol/L (3.5-5.1)
[2020-09-03] MEDS: INSULIN REGULAR, HUMAN 3ML 100 UNIT in SODIUM CHLORIDE 0.9% 99 ML IV PRN ×2 (05:22)
[2020-09-03] MEDS: POTASSIUM CHLORIDE 20MEQ/100ML 100 ML IV PRN (05:46)
[2020-09-03] MEDS ORDERED: INSULIN GLARGINE 100 UNITS/ML 10 ML VIAL SQ SCH (08:15)
[2020-09-03] MEDS: FENOFIBRATE NANOCRYSTALLIZED 145 MG TAB PO SCH (08:17)
[2020-09-03] MEDS: FAMOTIDINE/PF 20 MG/2 ML VIAL IV SCH ×2 (08:17→21:50)
[2020-09-03] MEDS: ATORVASTATIN CALCIUM 40 MG TABLET PO SCH (08:17)
[2020-09-03] MEDS: ENOXAPARIN SODIUM 30 MG/0.3 ML SQ SCH (08:18)
[2020-09-03 08:55] LABS: CREATININE 0.7 mg/dL (0.5-1.5); POTASSIUM 3.8 mmol/L (3.5-5.1)
[2020-09-03] MEDS: INSULIN HUMULIN R 100 UNIT/ML 3ML SQ SCH ×4 (11:14→21:53)
[2020-09-03] MEDS ORDERED: INSULIN HUMULIN R 100 UNIT/ML 3ML SQ SCH (11:30)
[2020-09-03 14:35] LABS: CREATININE 0.6 mg/dL (0.5-1.5); POTASSIUM 3.6 mmol/L (3.5-5.1)
[2020-09-03 21:02] LABS: CREATININE 0.7 mg/dL (0.5-1.5); POTASSIUM 3.2 mmol/L (3.5-5.1)
[2020-09-04 03:44] LABS: HEMOGLOBIN A1C 12.2 % (4.0-6.0)
[2020-09-04 03:48] LABS: CREATININE 0.7 mg/dL (0.5-1.5)
[2020-09-04 04:00] VITALS: BP 121/76
[2020-09-04 04:05] LABS: POTASSIUM 2.9 mmol/L (3.5-5.1)
[2020-09-04] MEDS: POTASSIUM CHLORIDE 20MEQ/100ML 100 ML IV PRN (04:22)
[2020-09-04 04:28] LABS: BASOPHILS % (AUTO) 0.3 % (0.0-5.0); EOSINOPHILS % (AUTO) 1.4 % (0.0-8.0); HEMATOCRIT 37.3 % (42-54); LYMPHOCYTES % (AUTO) 39.6 % (21.0-51.0); MEAN CORPUSCULAR HEMOGLOBIN 29.6 pg (27.0-33.0); MEAN CORPUSCULAR HGB CONC 35.1 g/dL (32.0-36.0); MEAN CORPUSCULAR VOLUME 84.4 fL (79-99); MONOCYTES % (AUTO) 6.3 % (3.0-13.0); NEUTROPHILS % (AUTO) 51.8 % (40.0-77.0); PLATELET COUNT (AUTO) 139 K/uL (130-400); RED BLOOD CELL COUNT(AUTO) 4.42 MIL/uL (4.50-6.20); RED CELL DISTRIBUTION WIDTH 14.9 % (11.0-15.5); WHITE BLOOD COUNT (AUTO) 6.4 K/uL (4.8-10.8)
[2020-09-04] MEDS: INSULIN HUMULIN R 100 UNIT/ML 3ML SQ SCH ×4 (06:52→11:37)
[2020-09-04 07:44] VITALS: BP 125/78
[2020-09-04] MEDS: FAMOTIDINE/PF 20 MG/2 ML VIAL IV SCH (08:19)
[2020-09-04] MEDS: ATORVASTATIN CALCIUM 40 MG TABLET PO SCH (08:19)
[2020-09-04] MEDS: FENOFIBRATE NANOCRYSTALLIZED 145 MG TAB PO SCH (08:19)
[2020-09-04] MEDS: ENOXAPARIN SODIUM 30 MG/0.3 ML SQ SCH (08:20)
[2020-09-04 10:08] LABS: CREATININE 0.8 mg/dL (0.5-1.5); POTASSIUM 3.7 mmol/L (3.5-5.1)
[2020-09-04] MEDS ORDERED: MAGNESIUM OXIDE 400 MG TABLET PO SCH (10:30)
[2020-09-04] MEDS ORDERED: MAGNESIUM OXIDE 400 MG TABLET PO ONE (10:31)
[2020-09-04] MEDS: POTASSIUM CHLORIDE 20 MEQ ERTAB PO PRN (10:42)
[2020-09-04] MEDS ORDERED: MAGNESIUM 2GM PREMIX 50ML 50 ML IV SCH (10:45)
[2020-09-04 11:32] VITALS: BP 127/80
[2020-09-04] MEDS ORDERED: INSULIN HUMULIN R 100 UNIT/ML 3ML SQ SCH (17:00)
[2020-09-04] MEDS ORDERED: INSULIN GLARGINE 100 UNITS/ML 10 ML VIAL SQ SCH ×2 (21:00)
== END 2020-09-04 14:25 | disposition home or self-care (01) | DRG 438 ==
LOC: EDH 16:38 → EDHIP 16:39 → 2DH 09-01 14:23 → 4AH 09-04 07:23
PROVIDERS: ADMIT Family Medicine; ATTEND Family Medicine
DX: K85.90 Acute pancreatitis without necrosis or infection, unspecified (principal); E11.10 Type 2 diabetes mellitus with ketoacidosis without coma; K86.1 Other chronic pancreatitis; E87.6 Hypokalemia; E86.0 Dehydration; E86.1 Hypovolemia; R74.8 Abnormal levels of other serum enzymes; E78.1 Pure hyperglyceridemia; E66.9 Obesity, unspecified; Z68.32 Body mass index [BMI] 32.0-32.9, adult; Z79.4 Long term (current) use of insulin; Z79.899 Other long term (current) drug therapy; Z91.19 Patient's noncompliance with other medical treatment and regimen; Z83.3 Family history of diabetes mellitus; Z82.49 Family history of ischemic heart disease and other diseases of the circulatory system
CPT/HCPCS: 36415; 36600; 74176; 80048; 80053; 80061; 81001; 82010; 82435; 82803; 82947; 82948; 83036; 83605; 83690; 83735; 84132; 84145; 84295; 84478; 85018; 85025; 87040; G0378; J0780; J1650; J1815; J2405; J3475; J3480; J3490; J7042; J7120

== ENCOUNTER 2020-10-12 22:31 | Emergency (ER) | payer OTHER ==
[~2020-10-12 22:31] MED LIST changes: +ATOR40TA69 PO
[2020-10-12] MEDS ORDERED: IBUPROFEN 600 MG TABLET ONE (23:52)
[2020-10-12] MEDS ORDERED: ACETAMINOPHEN EXTRA STRENGTH 500 MG TABLET ONE (23:52)
[2020-10-12] MEDS ORDERED: CYCLOBENZAPRINE HCL 10 MG TABLET ONE (23:53)
== END 2020-10-13 00:06 | disposition home or self-care (01) ==
LOC: EDH 22:31
DX: S39.012A Strain of muscle, fascia and tendon of lower back, initial encounter (principal); E11.9 Type 2 diabetes mellitus without complications; V89.2XXA Person injured in unspecified motor-vehicle accident, traffic, initial encounter; Y93.89 Activity, other specified; Y92.488 Other paved roadways as the place of occurrence of the external cause; Y99.8 Other external cause status
CPT/HCPCS: 72100

== ENCOUNTER 2021-01-31 06:35 | Inpatient (IN) | payer OTHER ==
[2021-01-31] VITALS (15 sets, daily range): BP systolic 118–155; BP diastolic 55–81
[~2021-01-31] VITALS: Ht 167.6 cm; Wt 95.3 kg
[2021-01-31 06:57] LABS: BASOPHILS % (AUTO) 0.9 % (0.0-5.0); EOSINOPHILS % (AUTO) 0.1 % (0.0-8.0); LYMPHOCYTES % (AUTO) 18.6 % (21.0-51.0); MONOCYTES % (AUTO) 4.4 % (3.0-13.0); NEUTROPHILS % (AUTO) 73.7 % (40.0-77.0); PLATELET COUNT (AUTO) 208 K/uL (130-400); RED BLOOD CELL COUNT(AUTO) 5.57 MIL/uL (4.50-6.20); RED CELL DISTRIBUTION WIDTH 15.1 % (11.0-15.5); WHITE BLOOD COUNT (AUTO) 15.4 K/uL (4.8-10.8)
[2021-01-31] MEDS ORDERED: FAMOTIDINE 20MG VIAL IV ONE (07:00)
[2021-01-31] MEDS ORDERED: METOCLOPRAMIDE 10 MG/2 ML VIAL IVP ONE (07:00)
[2021-01-31] MEDS ORDERED: 0.9%NACL 1000ML 1,000 ML IV ONE ×2 (07:00)
[2021-01-31] MEDS ORDERED: ONDANSETRON 4MG INJ IVP ONE (07:00)
[2021-01-31 07:14] LABS: BILIRUBIN,TOTAL 0.9 mg/dL (0.2-1.0); POTASSIUM 4.3 mmol/L (3.5-5.1)
[2021-01-31] MEDS: PANTOPRAZOLE 40 MG/VIAL IVP SCH ×2 (07:33→09:00)
[2021-01-31 07:37] LABS: ABG OXYGEN SATURATION 34.5 % (95.0-99.0); BASE EXCESS,VENOUS BLOOD GAS -20.3 (-2.0-3.0); PCO2,VENOUS BLOOD GAS 22 (35-48); PH,VENOUS BLOOD GAS 7.127 (7.350-7.450)
[2021-01-31 07:50] LABS: MEAN CORPUSCULAR HEMOGLOBIN 30.2 pg (27.0-33.0); MEAN CORPUSCULAR HGB CONC 34.7 g/dL (32.0-36.0)
[2021-01-31 07:52] LABS: BILIRUBIN,URINE Negative (NEGATIVE); COLOR,URINE Yellow (YELLOW); GLUCOSE, URINE (UA) >=1000 mg/dL (NEGATIVE); KETONES,URINE >=160 mg/dL (NEGATIVE); LEUKOCYTE ESTERASE ,URINE Negative (NEGATIVE); NITRATE,URINE Negative (NEGATIVE); OCCULT BLOOD,URINE Small (NEGATIVE); PROTEIN,URINE 300 mg/dL (NEGATIVE)
[2021-01-31 07:53] LABS: APPEARANCE,URINE CLEAR (CLEAR)
[2021-01-31] MEDS ORDERED: LACTATED RINGERS 1000ML 1,000 ML IV ONE (08:00)
[2021-01-31 08:04] LABS: BACTERIA,URINE Rare /HPF (None Seen); RBC,URINE 0-1 /HPF (0-1); SQUAMOUS EPITHELIAL CELL,UR Few /HPF (0-2)
[2021-01-31 08:06] LABS: ALBUMIN 4.3 g/dL (3.5-5.0); CREATININE 1.2 mg/dL (0.5-1.5); TOTAL PROTEIN, SERUM 9.4 g/dL (6.0-8.3)
[2021-01-31 08:29] LABS: CHOLESTEROL 209 mg/dL (<200); HDL CHOLESTEROL 23 mg/dL (29-71); LDL DIRECT 32 mg/dL (0-99); TRIGLYCERIDES 1382 mg/dL (30-200)
[2021-01-31] MEDS ORDERED: ONDANSETRON 4MG INJ IVP PRN (08:30)
[2021-01-31] MEDS: INSULIN HUMULIN R 100 UNIT/ML 3ML IV SCH (08:30)
[2021-01-31] MEDS ORDERED: DEXTROSE 5 %-0.45 % NACL 1,000 ML IV PRN (08:30)
[2021-01-31] MEDS ORDERED: POTASSIUM CHLORIDE 10MEQ/100ML 100 ML IV PRN (08:30)
[2021-01-31] MEDS ORDERED: 0.9%NACL 1000ML 1,000 ML IV SCH ×2 (08:30)
[2021-01-31 08:57] LABS: AMPHET/METH SCREEN,URINE NEGATIVE (NEGATIVE); BARBITURATE SCREEN, URINE NEGATIVE (NEGATIVE); BENZODIAZEPINES SCREEN,URINE NEGATIVE (NEGATIVE); CANNABINOID SCREEN,URINE NEGATIVE (NEGATIVE); COCAINE SCREEN,URINE NEGATIVE (NEGATIVE); OPIATE SCREEN,URINE NEGATIVE (NEGATIVE); PHENCYCLIDINE SCREEN,URINE NEGATIVE (NEGATIVE)
[2021-01-31] MEDS: INSULIN REGULAR, HUMAN 3ML 100 UNIT in 0.9%NACL 100ML 99 ML IV SCH ×2 (09:24)
[2021-01-31] MEDS ORDERED: 0.9%NACL 100ML 100 ML ONE ×2 (09:26→23:30)
[2021-01-31] MEDS: CEFTRIAXONE 1G VIAL IVP SCH (09:27)
[2021-01-31 09:56] LABS: ALBUMIN 4.4 g/dL (3.5-5.0); BILIRUBIN,DIRECT 0.1 mg/dL (0.0-0.3); BILIRUBIN,TOTAL 0.4 mg/dL (0.2-1.0); TOTAL PROTEIN, SERUM 9.8 g/dL (6.0-8.3)
[2021-01-31] MEDS: FISH OIL 1000 MG/CAP PO SCH ×2 (10:18→20:10)
[2021-01-31] MEDS ORDERED: INSU10VI3 SQ (10:30)
[2021-01-31] MEDS ORDERED: ACETAMINOPHEN 325 MG TAB PO PRN (12:00)
[2021-01-31] MEDS ORDERED: PHARMACY COMMUNICATION MISC SCH ×2 (15:30)
[2021-01-31] MEDS: POTASSIUM CHLORIDE IV SCH ×2 (16:03→23:24)
[2021-01-31] MEDS: NACL IV SCH ×2 (16:03→23:24)
[2021-01-31] MEDS: [UNRECOGNIZED DRUG - OTHER] IV SCH ×2 (16:03→23:24)
[2021-01-31 16:12] LABS: POTASSIUM 4.1 mmol/L (3.5-5.1)
[2021-01-31 16:23] LABS: CREATININE 0.8 mg/dL (0.5-1.5)
[2021-01-31] MEDS: ATORVASTATIN 40 MG TABLET PO SCH (20:10)
[2021-01-31] MEDS: FENOFIBRATE NANOCRYSTALLIZED 145 MG TAB PO SCH (20:10)
[2021-01-31] MEDS ORDERED: ATORVASTATIN 20 MG TABLET PO SCH (21:00)
[2021-01-31 22:34] LABS: CREATININE 1.1 mg/dL (0.5-1.5); POTASSIUM 3.7 mmol/L (3.5-5.1)
[2021-02-01] VITALS (24 sets, daily range): BP systolic 94–143; BP diastolic 54–78
[2021-02-01 04:03] LABS: ALBUMIN 3.4 g/dL (3.5-5.0); MAGNESIUM 2.3 mg/dL (1.80-2.40); POTASSIUM 4.5 mmol/L (3.5-5.1)
[2021-02-01 04:50] LABS: BASOPHILS % (AUTO) 0.7 % (0.0-5.0); EOSINOPHILS % (AUTO) 0.1 % (0.0-8.0); HEMATOCRIT 44.8 % (42-54); MEAN CORPUSCULAR HEMOGLOBIN 33.5 pg (27.0-33.0); MEAN CORPUSCULAR HGB CONC 39.3 g/dL (32.0-36.0); MEAN CORPUSCULAR VOLUME 85.2 fL (79-99); MONOCYTES % (AUTO) 5.2 % (3.0-13.0); NEUTROPHILS % (AUTO) 68.6 % (40.0-77.0); PLATELET COUNT (AUTO) 245 K/uL (130-400); RED BLOOD CELL COUNT(AUTO) 5.26 MIL/uL (4.50-6.20); RED CELL DISTRIBUTION WIDTH 16.8 % (11.0-15.5); WHITE BLOOD COUNT (AUTO) 13.4 K/uL (4.8-10.8)
[2021-02-01 06:59] LABS: ABG BASE EXCESS -12.9 mmol/L (-2.0-3.0); ABG HCO3 12.3 mmol/L (21.0-28.0); ABG OXYGEN SATURATION 97.9 % (95.0-99.0); ABG PCO2 28 mmHg (35-48)
[2021-02-01] MEDS: INSULIN HUMULIN R 100 UNIT/ML 3ML IV SCH (08:30)
[2021-02-01] MEDS: PANTOPRAZOLE 40 MG/VIAL IVP SCH ×2 (08:43→08:45)
[2021-02-01] MEDS: FISH OIL 1000 MG/CAP PO SCH ×2 (08:44→20:17)
[2021-02-01] MEDS: CEFTRIAXONE 1G VIAL IVP SCH (08:44)
[2021-02-01] MEDS: ENOXAPARIN SODIUM 40 MG/0.4 ML SYRINGE SQ SCH (08:44)
[2021-02-01] MEDS: NACL IV SCH ×2 (09:09→20:16)
[2021-02-01] MEDS: [UNRECOGNIZED DRUG - OTHER] IV SCH ×2 (09:09→20:16)
[2021-02-01] MEDS: POTASSIUM CHLORIDE IV SCH ×2 (09:09→20:16)
[2021-02-01 14:16] LABS: CREATININE 0.9 mg/dL (0.5-1.5); POTASSIUM 3.4 mmol/L (3.5-5.1)
[2021-02-01] MEDS ORDERED: POTASSIUM CHLORIDE 10% ELIXIR 20 MEQ/15 ML UDCUP PO PRN (15:00)
[2021-02-01] MEDS: KCL 20 MEQ ERTAB PO PRN ×2 (16:20→17:42)
[2021-02-01] MEDS: INSULIN REGULAR, HUMAN 3ML 100 UNIT in 0.9%NACL 100ML 99 ML IV SCH ×2 (16:21)
[2021-02-01] MEDS: FENOFIBRATE NANOCRYSTALLIZED 145 MG TAB PO SCH (20:17)
[2021-02-01] MEDS: ATORVASTATIN 40 MG TABLET PO SCH (20:17)
[2021-02-02] VITALS (17 sets, daily range): BP systolic 110–149; BP diastolic 63–87
[2021-02-02 00:02] LABS: POTASSIUM 3.4 mmol/L (3.5-5.1)
[2021-02-02 00:26] LABS: CREATININE 0.7 mg/dL (0.5-1.5)
[2021-02-02] MEDS: [UNRECOGNIZED DRUG - OTHER] IV SCH ×2 (01:59→10:00)
[2021-02-02] MEDS: POTASSIUM CHLORIDE IV SCH ×2 (01:59→10:00)
[2021-02-02] MEDS: NACL IV SCH ×2 (01:59→10:00)
[2021-02-02 03:23] LABS: BASOPHILS % (AUTO) 0.5 % (0.0-5.0); EOSINOPHILS % (AUTO) 1.1 % (0.0-8.0); HEMATOCRIT 35.1 % (42-54); LYMPHOCYTES % (AUTO) 30.5 % (21.0-51.0); MEAN CORPUSCULAR HEMOGLOBIN 34.3 pg (27.0-33.0); MEAN CORPUSCULAR HGB CONC 42.2 g/dL (32.0-36.0); MEAN CORPUSCULAR VOLUME 81.4 fL (79-99); MONOCYTES % (AUTO) 4.3 % (3.0-13.0); NEUTROPHILS % (AUTO) 61.9 % (40.0-77.0); PLATELET COUNT (AUTO) 154 K/uL (130-400); RED BLOOD CELL COUNT(AUTO) 4.31 MIL/uL (4.50-6.20); RED CELL DISTRIBUTION WIDTH 15.7 % (11.0-15.5); WHITE BLOOD COUNT (AUTO) 6.5 K/uL (4.8-10.8)
[2021-02-02 04:30] LABS: ALBUMIN 2.8 g/dL (3.5-5.0); AMYLASE 22 U/L (25-115); BILIRUBIN,DIRECT < 0.1 mg/dL (0.0-0.3); BILIRUBIN,TOTAL 0.5 mg/dL (0.2-1.0); CARBON DIOXIDE 19 mmol/L (21-32); CHLORIDE 106 mmol/L (101-111); CREATININE 0.6 mg/dL (0.5-1.5); GLOMERULAR FILTR. RATE CALC 173 mL/min (>60); GLUCOSE,RANDOM 214 mg/dL (70-105); LIPASE < 50 U/L (114-286); SODIUM SERUM 136 mmol/L (136-145); TOTAL PROTEIN, SERUM 6.9 g/dL (6.0-8.3); TRIGLYCERIDES 468 mg/dL (30-200); UREA NITROGEN, BLOOD 4 mg/dL (7-18)
[2021-02-02 04:47] LABS: ALANINE AMINOTRANSFERASE 38 U/L (12-78); ASPARTATE AMINOTRANSFERASE 78 U/L (10-37)
[2021-02-02] MEDS: PANTOPRAZOLE 40 MG/VIAL IVP SCH ×2 (06:17→08:01)
[2021-02-02 06:45] LABS: ABG BASE EXCESS -5.9 mmol/L (-2.0-3.0); ABG HCO3 17.5 mmol/L (21.0-28.0); ABG OXYGEN SATURATION 97.5 % (95.0-99.0); ABG PCO2 29 mmHg (35-48)
[2021-02-02] MEDS: FISH OIL 1000 MG/CAP PO SCH ×2 (08:00→20:26)
[2021-02-02] MEDS: KCL 20 MEQ ERTAB PO PRN ×2 (08:00→22:38)
[2021-02-02] MEDS: CEFTRIAXONE 1G VIAL IVP SCH (08:00)
[2021-02-02] MEDS: ENOXAPARIN SODIUM 40 MG/0.4 ML SYRINGE SQ SCH (08:00)
[2021-02-02] MEDS: INSULIN HUMULIN R 100 UNIT/ML 3ML IV SCH (08:01)
[2021-02-02] MEDS ORDERED: INSULIN GLARGINE 100 UNITS/ML 10 ML VIAL SQ ONE (18:30)
[2021-02-02 20:17] LABS: CREATININE 0.5 mg/dL (0.5-1.5)
[2021-02-02] MEDS: ATORVASTATIN 40 MG TABLET PO SCH (20:26)
[2021-02-02] MEDS: FENOFIBRATE NANOCRYSTALLIZED 145 MG TAB PO SCH (20:26)
[2021-02-02] MEDS: INSULIN HUMULIN R 100 UNIT/ML 3ML SQ SCH (20:29)
[2021-02-03] VITALS (7 sets, daily range): BP systolic 111–134; BP diastolic 59–80
[2021-02-03] MEDS: KCL 20 MEQ ERTAB PO PRN ×3 (00:04→03:55)
[2021-02-03 03:48] LABS: BASOPHILS % (AUTO) 0.4 % (0.0-5.0); EOSINOPHILS % (AUTO) 0.8 % (0.0-8.0); HEMATOCRIT 37.1 % (42-54); LYMPHOCYTES % (AUTO) 45.4 % (21.0-51.0); MEAN CORPUSCULAR HEMOGLOBIN 31.7 pg (27.0-33.0); MEAN CORPUSCULAR HGB CONC 39.1 g/dL (32.0-36.0); MEAN CORPUSCULAR VOLUME 81.2 fL (79-99); MONOCYTES % (AUTO) 4.4 % (3.0-13.0); PLATELET COUNT (AUTO) 146 K/uL (130-400); RED BLOOD CELL COUNT(AUTO) 4.57 MIL/uL (4.50-6.20); RED CELL DISTRIBUTION WIDTH 15.9 % (11.0-15.5); WHITE BLOOD COUNT (AUTO) 4.8 K/uL (4.8-10.8)
[2021-02-03 04:46] LABS: CREATININE 0.3 mg/dL (0.5-1.5); POTASSIUM 3.2 mmol/L (3.5-5.1)
[2021-02-03] MEDS: PANTOPRAZOLE 40 MG/VIAL IVP SCH ×2 (05:36→08:37)
[2021-02-03] MEDS: INSULIN HUMULIN R 100 UNIT/ML 3ML SQ SCH ×8 (05:45→20:40)
[2021-02-03] MEDS: INSULIN HUMULIN R 100 UNIT/ML 3ML IV SCH (08:30)
[2021-02-03] MEDS: CEFTRIAXONE 1G VIAL IVP SCH (08:37)
[2021-02-03] MEDS: FISH OIL 1000 MG/CAP PO SCH ×2 (08:38→20:34)
[2021-02-03] MEDS: ENOXAPARIN SODIUM 40 MG/0.4 ML SYRINGE SQ SCH (08:40)
[2021-02-03 12:03] LABS: POTASSIUM 3.3 mmol/L (3.5-5.1)
[2021-02-03 12:15] LABS: CREATININE 0.3 mg/dL (0.5-1.5)
[2021-02-03] MEDS: FENOFIBRATE NANOCRYSTALLIZED 145 MG TAB PO SCH (20:34)
[2021-02-03] MEDS: ATORVASTATIN 40 MG TABLET PO SCH (20:35)
[2021-02-03] MEDS: PANTOPRAZOLE 40 MG TAB DR PO SCH (20:36)
[2021-02-03] MEDS ORDERED: INSULIN GLARGINE 100 UNITS/ML 10 ML VIAL SQ SCH (21:00)
[2021-02-04] VITALS: BP 127/73
[2021-02-04 04:00] VITALS: BP 129/77
[2021-02-04] MEDS: KCL 20 MEQ ERTAB PO PRN ×3 (06:23→11:55)
[2021-02-04] MEDS: INSULIN HUMULIN R 100 UNIT/ML 3ML SQ SCH ×6 (06:31→17:00)
[2021-02-04 07:54] VITALS: BP 129/80
[2021-02-04] MEDS: ENOXAPARIN SODIUM 40 MG/0.4 ML SYRINGE SQ SCH (08:07)
[2021-02-04] MEDS: FISH OIL 1000 MG/CAP PO SCH (08:07)
[2021-02-04] MEDS: CEFTRIAXONE 1G VIAL IVP SCH (08:07)
[2021-02-04] MEDS: PANTOPRAZOLE 40 MG TAB DR PO SCH (08:07)
[2021-02-04] MEDS: INSULIN HUMULIN R 100 UNIT/ML 3ML IV SCH (08:30)
[2021-02-04 11:37] VITALS: BP 129/75
[2021-02-04 15:11] VITALS: BP 127/78
[2021-02-04] MEDS ORDERED: SYRI-1628 MC (16:59)
[2021-02-04] MEDS ORDERED: FISH1CAP20 PO (16:59)
[2021-02-04] MEDS ORDERED: INSU100V3 SQ (16:59)
[2021-02-04] MEDS ORDERED: PANT40TA PO (16:59)
[2021-02-04] MEDS ORDERED: INSLAN SQ (16:59)
[2021-02-04] MEDS ORDERED: ATOR40TA69 PO (16:59)
[2021-02-04] MEDS ORDERED: FENO145T26 PO (16:59)
== END 2021-02-04 19:00 | disposition home or self-care (01) | DRG 637 ==
LOC: EDH 06:51 → EDHIP 06:52 → 2CH 14:26 → 2DH 02-03 17:27 → 3CH 02-04 15:05
PROVIDERS: ADMIT Internal Medicine; ATTEND Internal Medicine
DX: E10.10 Type 1 diabetes mellitus with ketoacidosis without coma (principal); K85.90 Acute pancreatitis without necrosis or infection, unspecified; L03.113 Cellulitis of right upper limb; N30.00 Acute cystitis without hematuria; K86.1 Other chronic pancreatitis; E66.9 Obesity, unspecified; E78.1 Pure hyperglyceridemia; E86.1 Hypovolemia; E86.0 Dehydration; K76.0 Fatty (change of) liver, not elsewhere classified; Z20.822 Contact with and (suspected) exposure to COVID-19; E78.5 Hyperlipidemia, unspecified; Z79.4 Long term (current) use of insulin; Z79.899 Other long term (current) drug therapy; Z91.14 Patient's other noncompliance with medication regimen; Z91.19 Patient's noncompliance with other medical treatment and regimen; Z68.33 Body mass index [BMI] 33.0-33.9, adult
CPT/HCPCS: 36415; 36600; 70450; 71045; 74176; 76882; 80048; 80053; 80061; 80076; 80305; 81001; 82010; 82040; 82150; 82435; 82803; 82947; 82948; 83036; 83605; 83690; 83735; 83930; 84132; 84145; 84295; 84443; 84478; 85018; 85025; 85610; 87040; 87088; 87635; 87804; C9113; G0378; J0696; J1650; J1815; J2405; J2765; J3480; J3490; J7030; J7120; J7131

== ENCOUNTER 2021-06-05 20:22 | Inpatient (IN) | payer OTHER ==
[~2021-06-05] VITALS: Ht 167.6 cm; Wt 101.6 kg
[~2021-06-05 20:22] MED LIST changes: +FISH1CAP20 PO; +INSLAN SQ; +INSU100V3 SQ; +PANT40TA PO; +SYRI-1628 MC
[2021-06-05] MEDS ORDERED: FAMOTIDINE 20MG VIAL IV ONE (20:30)
[2021-06-05] MEDS ORDERED: SUCRALFATE 1 GM TABLET PO SCH (20:30)
[2021-06-05 21:09] LABS: BASOPHILS % (AUTO) 0.6 % (0.0-5.0); EOSINOPHILS % (AUTO) 0.4 % (0.0-8.0); HEMATOCRIT 39.9 % (42-54); LYMPHOCYTES % (AUTO) 21.1 % (21.0-51.0); MEAN CORPUSCULAR VOLUME 84.7 fL (79-99); MONOCYTES % (AUTO) 6.4 % (3.0-13.0); NEUTROPHILS % (AUTO) 70.7 % (40.0-77.0); PLATELET COUNT (AUTO) 199 K/uL (130-400); RED BLOOD CELL COUNT(AUTO) 4.71 MIL/uL (4.50-6.20); RED CELL DISTRIBUTION WIDTH 13.2 % (11.0-15.5); WHITE BLOOD COUNT (AUTO) 14.1 K/uL (4.8-10.8)
[2021-06-05 21:14] LABS: APPEARANCE,URINE Clear (CLEAR); BILIRUBIN,URINE Negative (NEGATIVE); COLOR,URINE Yellow (YELLOW); GLUCOSE, URINE (UA) >=1000 mg/dL (NEGATIVE); KETONES,URINE >=80 mg/dL (NEGATIVE); LEUKOCYTE ESTERASE ,URINE Negative (NEGATIVE); NITRATE,URINE Negative (NEGATIVE); OCCULT BLOOD,URINE Small (NEGATIVE); PROTEIN,URINE POS 2+ mg/dL (NEGATIVE); UROBILINOGEN,URINE 0.2 mg/dL (0.2-1.0)
[2021-06-05 21:19] LABS: POTASSIUM 3.2 mmol/L (3.5-5.1)
[2021-06-05 21:29] LABS: MEAN CORPUSCULAR HEMOGLOBIN 34.2 pg (27.0-33.0); MEAN CORPUSCULAR HGB CONC 40.4 g/dL (32.0-36.0)
[2021-06-05] MEDS ORDERED: 0.9%NACL 1000ML 1,000 ML IV ONE ×4 (21:30→23:00)
[2021-06-05 21:40] LABS: BACTERIA,URINE Few /HPF (None Seen); SQUAMOUS EPITHELIAL CELL,UR Few /HPF (0-2); WBC,URINE 0-1 /HPF (0-1); YEAST,URINE BUDDING Few /HPF (None Seen)
[2021-06-05 21:43] LABS: ALBUMIN 3.8 g/dL (3.5-5.0); BILIRUBIN,TOTAL 0.5 mg/dL (0.2-1.0); CREATININE 0.8 mg/dL (0.5-1.5)
[2021-06-05 21:44] LABS: ABG BASE EXCESS -7.5 mmol/L (-2.0-3.0); ABG HCO3 16.2 mmol/L (21.0-28.0); ABG OXYGEN SATURATION 96.4 % (95.0-99.0); ABG PCO2 29 mmHg (35-48)
[2021-06-05] MEDS ORDERED: ATOR40TA69 PO (21:55)
[2021-06-05] MEDS ORDERED: INSU100I35 SQ ×2 (21:55)
[2021-06-05] MEDS ORDERED: FENO145T26 PO (21:55)
[2021-06-05 22:05] LABS: TOTAL PROTEIN, SERUM 7.7 g/dL (6.0-8.3)
[2021-06-05] MEDS ORDERED: POTASSIUM CHLORIDE 10MEQ/100ML 100 ML IV PRN ×2 (22:30→23:00)
[2021-06-05] MEDS ORDERED: DEXTROSE 5 %-0.45 % NACL 1,000 ML IV PRN ×2 (22:30→23:00)
[2021-06-05] MEDS ORDERED: INSULIN REGULAR, HUMAN 3ML 100 UNIT in 0.9%NACL 100ML 99 ML IV PRN ×4 (22:30→23:00)
[2021-06-05] MEDS ORDERED: 0.9%NACL 1000ML 1,000 ML IV SCH ×2 (23:00)
[2021-06-05] MEDS ORDERED: CEFTRIAXONE 1G VIAL IV SCH (23:00)
[2021-06-05] MEDS ORDERED: POTASSIUM CHLORIDE 10% ELIXIR 20 MEQ/15 ML UDCUP PO PRN (23:00)
[2021-06-05] MEDS ORDERED: POTASSIUM CHLORIDE 20MEQ/100ML 100 ML IV PRN (23:00)
[2021-06-05] MEDS ORDERED: LIDOCAINE HCL-MPF 1% 2ML VIAL IV PRN (23:00)
[2021-06-05] MEDS ORDERED: ONDANSETRON 4MG INJ ONE (23:03)
[2021-06-05] MEDS ORDERED: MORPHINE 4 MG SYG ONE (23:04)
[2021-06-05] MEDS: 0.9%NACL 1000ML 1,000 ML IV SCH (23:14)
[2021-06-05] MEDS ORDERED: ONDANSETRON 4MG INJ IVP ONE (23:30)
[2021-06-05] MEDS ORDERED: MORPHINE 4 MG SYG IV ONE (23:30)
[2021-06-05 23:32] LABS: AMPHET/METH SCREEN,URINE NEGATIVE (NEGATIVE); BARBITURATE SCREEN, URINE NEGATIVE (NEGATIVE); BENZODIAZEPINES SCREEN,URINE NEGATIVE (NEGATIVE); CANNABINOID SCREEN,URINE NEGATIVE (NEGATIVE); COCAINE SCREEN,URINE NEGATIVE (NEGATIVE); OPIATE SCREEN,URINE NEGATIVE (NEGATIVE); PHENCYCLIDINE SCREEN,URINE NEGATIVE (NEGATIVE)
[2021-06-05] MEDS: KCL 20 MEQ ERTAB PO PRN (23:52)
[2021-06-06] VITALS (10 sets, daily range): BP systolic 124–146; BP diastolic 68–96
[2021-06-06 00:07] LABS: ALCOHOL, BLOOD < 3 mg/dL (0-10); CARBON DIOXIDE 29 mmol/L (21-32); GLUCOSE,RANDOM 372 mg/dL (70-105); HDL CHOLESTEROL 48 mg/dL (29-71); SODIUM SERUM 121 mmol/L (136-145)
[2021-06-06 00:17] LABS: CHLORIDE 87 mmol/L (101-111); POTASSIUM 2.8 mmol/L (3.5-5.1)
[2021-06-06 00:40] LABS: LDL DIRECT 53 mg/dL (0-99)
[2021-06-06] MEDS: ONDANSETRON 4MG INJ IVP PRN ×4 (01:46→21:29)
[2021-06-06 02:38] LABS: CHOLESTEROL 330 mg/dL (<200); CREATININE 0.7 mg/dL (0.5-1.5); GLOMERULAR FILTR. RATE CALC 144 mL/min (>60); TRIGLYCERIDES 11941 mg/dL (30-200); UREA NITROGEN, BLOOD 9 mg/dL (7-18)
[2021-06-06] MEDS: MORPHINE 2 MG SYG IV PRN (04:04)
[2021-06-06] MEDS: 0.9%NACL 1000ML 1,000 ML IV SCH ×2 (04:05→09:00)
[2021-06-06 05:09] LABS: BASOPHILS % (AUTO) 0.4 % (0.0-5.0); EOSINOPHILS % (AUTO) 0.1 % (0.0-8.0); HEMATOCRIT 40.4 % (42-54); LYMPHOCYTES % (AUTO) 11.3 % (21.0-51.0); MEAN CORPUSCULAR VOLUME 87.4 fL (79-99); MONOCYTES % (AUTO) 6.9 % (3.0-13.0); NEUTROPHILS % (AUTO) 80.3 % (40.0-77.0); PLATELET COUNT (AUTO) 195 K/uL (130-400); RED BLOOD CELL COUNT(AUTO) 4.62 MIL/uL (4.50-6.20); RED CELL DISTRIBUTION WIDTH 13.9 % (11.0-15.5); WHITE BLOOD COUNT (AUTO) 16.4 K/uL (4.8-10.8)
[2021-06-06 05:14] LABS: MEAN CORPUSCULAR HEMOGLOBIN 29.2 pg (27.0-33.0); MEAN CORPUSCULAR HGB CONC 33.4 g/dL (32.0-36.0)
[2021-06-06 05:35] LABS: MAGNESIUM 1.2 mg/dL (1.80-2.40); POTASSIUM 3.3 mmol/L (3.5-5.1)
[2021-06-06] MEDS: KCL 20 MEQ ERTAB PO PRN (06:09)
[2021-06-06 06:28] LABS: CREATININE 0.7 mg/dL (0.5-1.5)
[2021-06-06] MEDS ORDERED: [UNRECOGNIZED DRUG - OTHER] IV SCH (08:00)
[2021-06-06] MEDS ORDERED: POTASSIUM CHLORIDE IV SCH ×2 (08:00→13:00)
[2021-06-06] MEDS ORDERED: NS-20 MEQ KCL 1000ML 1,000 ML IV SCH (08:00)
[2021-06-06] MEDS: MORPHINE 4 MG SYG IV PRN ×3 (08:26→20:48)
[2021-06-06] MEDS ORDERED: MAGNESIUM 2GM PREMIX 50ML 50 ML IV SCH (08:30)
[2021-06-06] MEDS: ATORVASTATIN 40 MG TABLET PO SCH (09:04)
[2021-06-06] MEDS: FAMOTIDINE 20MG VIAL IV SCH ×2 (09:04→20:47)
[2021-06-06] MEDS: FENOFIBRATE NANOCRYSTALLIZED 145 MG TAB PO SCH (09:04)
[2021-06-06] MEDS: ENOXAPARIN SODIUM 40 MG/0.4 ML SYRINGE SQ SCH (09:05)
[2021-06-06 09:42] LABS: MAGNESIUM 1.7 mg/dL (1.80-2.40)
[2021-06-06 10:19] LABS: ALBUMIN 3.4 g/dL (3.5-5.0)
[2021-06-06 10:24] LABS: CREATININE 0.7 mg/dL (0.5-1.5)
[2021-06-06 10:34] LABS: ALBUMIN 3.4 g/dL (3.5-5.0); BILIRUBIN,TOTAL 0.6 mg/dL (0.2-1.0); CREATININE 0.7 mg/dL (0.5-1.5); TOTAL PROTEIN, SERUM 7.9 g/dL (6.0-8.3)
[2021-06-06 10:58] LABS: ABG OXYGEN SATURATION 96.2 % (95.0-99.0)
[2021-06-06 11:09] LABS: ABG BASE EXCESS -18.9 mmol/L (-2.0-3.0); ABG HCO3 7.5 mmol/L (21.0-28.0); ABG OXYGEN SATURATION 98.3 % (95.0-99.0); ABG PCO2 21 mmHg (35-48)
[2021-06-06] MEDS ORDERED: SODIUM BICARB 50MEQ 50ML VIAL IVPB SCH (11:28)
[2021-06-06] MEDS ORDERED: SODIUM BICARB 50MEQ 50ML VIAL 100 ML ONE (11:32)
[2021-06-06] MEDS ORDERED: PHARMACY COMMUNICATION MISC SCH ×2 (12:30→13:30)
[2021-06-06] MEDS ORDERED: DEXTROSE IV SCH (13:00)
[2021-06-06] MEDS ORDERED: NACL IV SCH (13:00)
[2021-06-06 14:06] LABS: CREATININE 0.8 mg/dL (0.5-1.5); POTASSIUM 3.8 mmol/L (3.5-5.1)
[2021-06-06 14:10] LABS: ALBUMIN 3.4 g/dL (3.5-5.0); BILIRUBIN,TOTAL 0.5 mg/dL (0.2-1.0); TOTAL PROTEIN, SERUM 8.1 g/dL (6.0-8.3)
[2021-06-06] MEDS: D5W-1/2 NS/20MEQ KCL 1,000 ML IV SCH ×2 (14:23→20:47)
[2021-06-06] MEDS: ZOSYN 3.375GM +NS 50ML IV SCH ×2 (14:47→20:47)
[2021-06-06 15:43] LABS: CREATININE 0.7 mg/dL (0.5-1.5); MAGNESIUM 1.9 mg/dL (1.80-2.40); POTASSIUM 3.4 mmol/L (3.5-5.1)
[2021-06-06] MEDS ORDERED: INSULIN REGULAR, HUMAN 3ML 100 UNIT in 0.9%NACL 100ML 99 ML IV PRN ×2 (16:00)
[2021-06-06 16:27] LABS: ABG BASE EXCESS -15.8 mmol/L (-2.0-3.0); ABG HCO3 8.5 mmol/L (21.0-28.0); ABG OXYGEN SATURATION 95.5 % (95.0-99.0); ABG PCO2 19 mmHg (35-48)
[2021-06-06] MEDS: INSULIN REGULAR, HUMAN 3ML 100 UNIT in 0.9%NACL 100ML 99 ML IV PRN ×2 (16:34)
[2021-06-06 18:50] LABS: CREATININE 0.9 mg/dL (0.5-1.5); POTASSIUM 3.8 mmol/L (3.5-5.1)
[2021-06-06 19:51] LABS: PHOSPHORUS 4.2 mg/dL (2.5-4.9)
[2021-06-06] MEDS: FISH OIL 1000 MG/CAP PO SCH (20:48)
[2021-06-06] MEDS ORDERED: FISH OIL 1000 MG/CAP PO SCH (21:00)
[2021-06-06 23:51] LABS: CREATININE 0.8 mg/dL (0.5-1.5); MAGNESIUM 2.5 mg/dL (1.80-2.40); PHOSPHORUS 1.6 mg/dL (2.5-4.9); POTASSIUM 4.2 mmol/L (3.5-5.1)
[2021-06-07] VITALS (17 sets, daily range): BP systolic 108–145; BP diastolic 62–97
[2021-06-07] MEDS: D5W-1/2 NS/20MEQ KCL 1,000 ML IV SCH ×4 (01:05→20:44)
[2021-06-07 03:54] LABS: HEMOGLOBIN A1C 11.1 % (4.0-6.0)
[2021-06-07 04:04] LABS: CREATININE 0.8 mg/dL (0.5-1.5); MAGNESIUM 2.4 mg/dL (1.80-2.40); PHOSPHORUS 1.6 mg/dL (2.5-4.9); POTASSIUM 3.9 mmol/L (3.5-5.1)
[2021-06-07] MEDS: ZOSYN 3.375GM +NS 50ML IV SCH ×3 (04:18→20:44)
[2021-06-07] MEDS: FISH OIL 1000 MG/CAP PO SCH ×3 (04:19→20:44)
[2021-06-07] MEDS: ONDANSETRON 4MG INJ IVP PRN ×3 (05:01→21:02)
[2021-06-07] MEDS: MORPHINE 2 MG SYG IV PRN (05:02)
[2021-06-07] MEDS: INSULIN REGULAR, HUMAN 3ML 100 UNIT in 0.9%NACL 100ML 99 ML IV PRN ×4 (05:45→20:48)
[2021-06-07 06:00] LABS: BASOPHILS % (AUTO) 0.5 % (0.0-5.0); EOSINOPHILS % (AUTO) 1.6 % (0.0-8.0); HEMATOCRIT 48.6 % (42-54); LYMPHOCYTES % (AUTO) 13.6 % (21.0-51.0); MEAN CORPUSCULAR HEMOGLOBIN 32.4 pg (27.0-33.0); MEAN CORPUSCULAR HGB CONC 38.5 g/dL (32.0-36.0); MEAN CORPUSCULAR VOLUME 84.2 fL (79-99); MONOCYTES % (AUTO) 3.3 % (3.0-13.0); NEUTROPHILS % (AUTO) 79.9 % (40.0-77.0); NUCLEATED RED BLOOD CELLS 0.1 % (0.0-0.19); PLATELET COUNT (AUTO) 203 K/uL (130-400); RED BLOOD CELL COUNT(AUTO) 5.77 MIL/uL (4.50-6.20); RED CELL DISTRIBUTION WIDTH 15.2 % (11.0-15.5); WHITE BLOOD COUNT (AUTO) 14.8 K/uL (4.8-10.8)
[2021-06-07] MEDS: FENOFIBRATE NANOCRYSTALLIZED 145 MG TAB PO SCH (07:53)
[2021-06-07] MEDS: FAMOTIDINE 20MG VIAL IV SCH ×2 (07:53→20:44)
[2021-06-07] MEDS: ENOXAPARIN SODIUM 40 MG/0.4 ML SYRINGE SQ SCH (07:53)
[2021-06-07] MEDS: ATORVASTATIN 40 MG TABLET PO SCH (07:54)
[2021-06-07] MEDS: KETOROLAC 15MG/ML VIAL (15MG/ML) IV PRN (11:00)
[2021-06-07 11:03] LABS: MAGNESIUM 2.5 mg/dL (1.80-2.40); PHOSPHORUS 1.7 mg/dL (2.5-4.9)
[2021-06-07 19:08] LABS: MAGNESIUM 2.7 mg/dL (1.80-2.40); POTASSIUM 3.7 mmol/L (3.5-5.1)
[2021-06-08] VITALS (24 sets, daily range): BP systolic 93–151; BP diastolic 56–98
[2021-06-08 03:58] LABS: ALBUMIN 2.5 g/dL (3.5-5.0); BILIRUBIN,TOTAL 0.6 mg/dL (0.2-1.0); CREATININE 0.8 mg/dL (0.5-1.5); POTASSIUM 3.4 mmol/L (3.5-5.1); TOTAL PROTEIN, SERUM 7.2 g/dL (6.0-8.3)
[2021-06-08] MEDS: ZOSYN 3.375GM +NS 50ML IV SCH ×3 (05:16→20:11)
[2021-06-08] MEDS: FISH OIL 1000 MG/CAP PO SCH ×3 (05:16→20:18)
[2021-06-08] MEDS: ATORVASTATIN 40 MG TABLET PO SCH (08:11)
[2021-06-08] MEDS: FAMOTIDINE 20MG VIAL IV SCH ×2 (08:11→20:11)
[2021-06-08] MEDS: KCL 20 MEQ ERTAB PO PRN ×4 (08:11→12:20)
[2021-06-08] MEDS: ENOXAPARIN SODIUM 40 MG/0.4 ML SYRINGE SQ SCH (08:11)
[2021-06-08] MEDS: FENOFIBRATE NANOCRYSTALLIZED 145 MG TAB PO SCH (08:11)
[2021-06-08 10:29] LABS: CREATININE 0.9 mg/dL (0.5-1.5); POTASSIUM 3.5 mmol/L (3.5-5.1)
[2021-06-08 12:03] LABS: ABG BASE EXCESS -10.7 mmol/L (-2.0-3.0); ABG HCO3 12.4 mmol/L (21.0-28.0); ABG OXYGEN SATURATION 98.4 % (95.0-99.0); ABG PCO2 22 mmHg (35-48)
[2021-06-08] MEDS: D5W-1/2 NS/20MEQ KCL 1,000 ML IV SCH (23:34)
[2021-06-09] VITALS (16 sets, daily range): BP systolic 107–152; BP diastolic 56–99
[2021-06-09] MEDS: ACETAMINOPHEN 325 MG TAB PO PRN ×2 (02:37→21:25)
[2021-06-09 03:52] LABS: CREATININE 0.7 mg/dL (0.5-1.5); POTASSIUM 3.1 mmol/L (3.5-5.1)
[2021-06-09] MEDS: ZOSYN 3.375GM +NS 50ML IV SCH (04:43)
[2021-06-09] MEDS: FISH OIL 1000 MG/CAP PO SCH ×3 (04:43→21:25)
[2021-06-09] MEDS: KCL 20 MEQ ERTAB PO PRN ×3 (04:48→07:42)
[2021-06-09] MEDS: FENOFIBRATE NANOCRYSTALLIZED 145 MG TAB PO SCH (07:42)
[2021-06-09] MEDS: ATORVASTATIN 40 MG TABLET PO SCH (07:42)
[2021-06-09] MEDS: FAMOTIDINE 20MG VIAL IV SCH ×2 (07:43→21:24)
[2021-06-09] MEDS: ENOXAPARIN SODIUM 40 MG/0.4 ML SYRINGE SQ SCH (07:47)
[2021-06-09 08:46] LABS: MEAN CORPUSCULAR HEMOGLOBIN 30.8 pg (27.0-33.0); MEAN CORPUSCULAR HGB CONC 35.8 g/dL (32.0-36.0); MEAN CORPUSCULAR VOLUME 86.2 fL (79-99); RED BLOOD CELL COUNT(AUTO) 4.41 MIL/uL (4.50-6.20); RED CELL DISTRIBUTION WIDTH 16.2 % (11.0-15.5); WHITE BLOOD COUNT (AUTO) 9.7 K/uL (4.8-10.8)
[2021-06-09] MEDS ORDERED: INSULIN GLARGINE 100 UNITS/ML 10 ML VIAL SQ SCH (09:00)
[2021-06-09] MEDS ORDERED: INSULIN HUMULIN R 100 UNIT/ML 3ML SQ SCH (11:30)
[2021-06-09] MEDS: INSULIN HUMULIN R 100 UNIT/ML 3ML SQ SCH (17:01)
[2021-06-09] MEDS: INSULIN GLARGINE 100 UNITS/ML 10 ML VIAL SQ SCH (21:22)
[2021-06-10 00:58] VITALS: BP 138/88
[2021-06-10 04:12] VITALS: BP 134/76
[2021-06-10 04:15] LABS: ABG BASE EXCESS -13.5 mmol/L (-2.0-3.0); ABG HCO3 10.1 mmol/L (21.0-28.0); ABG OXYGEN SATURATION 97.3 % (95.0-99.0); ABG PCO2 20 mmHg (35-48)
[2021-06-10 04:46] LABS: BASOPHILS % (AUTO) 0.2 % (0.0-5.0); EOSINOPHILS % (AUTO) 0.2 % (0.0-8.0); HEMATOCRIT 37.5 % (42-54); LYMPHOCYTES % (AUTO) 14.8 % (21.0-51.0); MEAN CORPUSCULAR HEMOGLOBIN 30.6 pg (27.0-33.0); MEAN CORPUSCULAR HGB CONC 35.5 g/dL (32.0-36.0); MEAN CORPUSCULAR VOLUME 86.4 fL (79-99); PLATELET COUNT (AUTO) 150 K/uL (130-400); RED BLOOD CELL COUNT(AUTO) 4.34 MIL/uL (4.50-6.20); RED CELL DISTRIBUTION WIDTH 15.6 % (11.0-15.5)
[2021-06-10 04:58] LABS: ALBUMIN 2.4 g/dL (3.5-5.0); BILIRUBIN,TOTAL 0.8 mg/dL (0.2-1.0); CREATININE 0.6 mg/dL (0.5-1.5); POTASSIUM 3.2 mmol/L (3.5-5.1); TOTAL PROTEIN, SERUM 7.2 g/dL (6.0-8.3)
[2021-06-10] MEDS: FISH OIL 1000 MG/CAP PO SCH ×3 (05:04→21:46)
[2021-06-10] MEDS ORDERED: LACTATED RINGERS 1000ML 1,914 ML IV ONE (05:43)
[2021-06-10] MEDS ORDERED: LACTATED RINGERS 1000ML 1,000 ML IV ONE (05:47)
[2021-06-10] MEDS: INSULIN HUMULIN R 100 UNIT/ML 3ML SQ SCH ×7 (06:09→21:00)
[2021-06-10] MEDS: KCL 20 MEQ ERTAB PO PRN ×2 (06:14→11:46)
[2021-06-10] MEDS: FENOFIBRATE NANOCRYSTALLIZED 145 MG TAB PO SCH (07:59)
[2021-06-10] MEDS: ATORVASTATIN 40 MG TABLET PO SCH (07:59)
[2021-06-10] MEDS: FAMOTIDINE 20MG VIAL IV SCH ×2 (07:59→21:46)
[2021-06-10 08:00] VITALS: BP 138/90
[2021-06-10] MEDS: ENOXAPARIN SODIUM 40 MG/0.4 ML SYRINGE SQ SCH (08:00)
[2021-06-10] MEDS: INSULIN GLARGINE 100 UNITS/ML 10 ML VIAL SQ SCH ×2 (08:10→21:44)
[2021-06-10 08:16] LABS: CREATININE 0.7 mg/dL (0.5-1.5); POTASSIUM 3.5 mmol/L (3.5-5.1)
[2021-06-10] MEDS ORDERED: 0.9%NACL 1000ML 1,000 ML IV SCH ×2 (09:00→10:00)
[2021-06-10] MEDS ORDERED: DEXTROSE 5 %-0.45 % NACL 1,000 ML IV PRN (09:00)
[2021-06-10] MEDS: 0.9%NACL 1000ML 1,000 ML IV SCH ×4 (09:00→19:00)
[2021-06-10] MEDS ORDERED: POTASSIUM CHLORIDE 10MEQ/100ML 100 ML IV PRN (09:00)
[2021-06-10 12:00] VITALS: BP 143/89
[2021-06-10] MEDS ORDERED: SODIUM BICARBONATE 650 MG TAB PO PRN (12:30)
[2021-06-10] MEDS: SODIUM BICARBONATE 650 MG TAB PO SCH (13:31)
[2021-06-10 16:00] VITALS: BP 141/88
[2021-06-10 21:15] VITALS: BP 119/70
[2021-06-11] VITALS: BP 140/85
[2021-06-11] MEDS: KETOROLAC 15MG/ML VIAL (15MG/ML) IV PRN ×2 (00:22→17:05)
[2021-06-11] MEDS: 0.9%NACL 1000ML 1,000 ML IV SCH ×7 (02:31→14:40)
[2021-06-11 04:25] VITALS: BP 132/97
[2021-06-11 04:58] LABS: CREATININE 0.7 mg/dL (0.5-1.5); POTASSIUM 3.8 mmol/L (3.5-5.1)
[2021-06-11] MEDS ORDERED: LACTATED RINGERS 1000ML 1,914 ML IV ONE (05:30)
[2021-06-11] MEDS: INSULIN HUMULIN R 100 UNIT/ML 3ML SQ SCH ×6 (06:17→16:58)
[2021-06-11] MEDS: FISH OIL 1000 MG/CAP PO SCH ×2 (06:23→12:26)
[2021-06-11 06:24] LABS: ABG BASE EXCESS -15.9 mmol/L (-2.0-3.0); ABG HCO3 8.3 mmol/L (21.0-28.0); ABG OXYGEN SATURATION 96.9 % (95.0-99.0); ABG PCO2 18 mmHg (35-48)
[2021-06-11] MEDS ORDERED: 0.9%NACL 1000ML 1,000 ML IV ONE (07:00)
[2021-06-11 07:40] VITALS: BP 127/78
[2021-06-11] MEDS: FENOFIBRATE NANOCRYSTALLIZED 145 MG TAB PO SCH (08:48)
[2021-06-11] MEDS: ENOXAPARIN SODIUM 40 MG/0.4 ML SYRINGE SQ SCH (08:48)
[2021-06-11] MEDS: ATORVASTATIN 40 MG TABLET PO SCH (08:48)
[2021-06-11] MEDS: FAMOTIDINE 20MG VIAL IV SCH (08:48)
[2021-06-11] MEDS: INSULIN GLARGINE 100 UNITS/ML 10 ML VIAL SQ SCH (08:50)
[2021-06-11] MEDS ORDERED: SODIUM BICARBONATE 650 MG TAB PO SCH (09:30)
[2021-06-11 11:32] LABS: ABG BASE EXCESS -18.6 mmol/L (-2.0-3.0); ABG HCO3 6.2 mmol/L (21.0-28.0); ABG OXYGEN SATURATION 97.2 % (95.0-99.0); ABG PCO2 15 mmHg (35-48)
[2021-06-11 11:45] VITALS: BP 140/86
[2021-06-11] MEDS: SODIUM BICARBONATE 650 MG TAB PO SCH (12:28)
[2021-06-11 15:30] VITALS: BP 137/91
[2021-06-11] MEDS ORDERED: ICOS1CAP PO (16:57)
[2021-06-11] MEDS ORDERED: ATOR40TA69 PO (16:57)
== END 2021-06-11 18:00 | disposition home or self-care (01) | DRG 438 ==
LOC: EDH 20:22 → EDHIP 22:54 → 2DH 06-06 14:21 → 3BH 06-09 14:30
PROVIDERS: ADMIT Internal Medicine; ATTEND Internal Medicine
DX: K85.80 Other acute pancreatitis without necrosis or infection (principal); E11.10 Type 2 diabetes mellitus with ketoacidosis without coma; E87.1 Hypo-osmolality and hyponatremia; N17.9 Acute kidney failure, unspecified; K86.1 Other chronic pancreatitis; E11.65 Type 2 diabetes mellitus with hyperglycemia; E87.6 Hypokalemia; E78.5 Hyperlipidemia, unspecified; I10 Essential (primary) hypertension; E66.9 Obesity, unspecified; E78.00 Pure hypercholesterolemia, unspecified; E87.8 Other disorders of electrolyte and fluid balance, not elsewhere classified; E78.1 Pure hyperglyceridemia; E86.0 Dehydration; E86.1 Hypovolemia; Z68.36 Body mass index [BMI] 36.0-36.9, adult; Z79.4 Long term (current) use of insulin; Z79.899 Other long term (current) drug therapy; Z91.14 Patient's other noncompliance with medication regimen; Z91.19 Patient's noncompliance with other medical treatment and regimen; Z83.3 Family history of diabetes mellitus; Z82.49 Family history of ischemic heart disease and other diseases of the circulatory system
CPT/HCPCS: 36415; 36600; 74176; 80048; 80053; 80061; 80305; 81001; 82009; 82010; 82040; 82435; 82550; 82803; 82947; 82948; 83036; 83605; 83690; 83735; 84100; 84132; 84295; 84478; 85018; 85025; 85027; 87040; 93005; G0378; J0696; J1650; J1815; J1885; J2270; J2405; J2543; J3475; J3480; J3490; J7030; J7042; J7120

== ENCOUNTER 2022-08-26 10:03 | Emergency (ER) | payer OTHER ==
[~2022-08-26] VITALS: Ht 167.6 cm; Wt 86.2 kg
[~2022-08-26 10:03] MED LIST changes: +AMOX1TAB16 PO; -ATOR40TA69 PO; +ATOR40TA71 PO; -FISH1CAP20 PO; -INSLAN SQ; -INSU100V3 SQ; +OMEG1CAP31 PO; -PANT40TA PO; -SYRI-1628 MC
[2022-08-26 11:07] LABS: BASOPHILS % (AUTO) 0.4 % (0.0-5.0); EOSINOPHILS % (AUTO) 0.6 % (0.0-8.0); HEMATOCRIT 44.7 % (42-54); MONOCYTES % (AUTO) 5.9 % (3.0-13.0); NEUTROPHILS % (AUTO) 60.1 % (40.0-77.0); PLATELET COUNT (AUTO) 201 K/uL (130-400); WHITE BLOOD COUNT (AUTO) 7.8 K/uL (4.8-10.8)
[2022-08-26 11:55] LABS: APPEARANCE,URINE CLEAR (CLEAR); BILIRUBIN,URINE NEGATIVE (NEGATIVE); COLOR,URINE LIGHT-YELLOW (YELLOW); GLUCOSE, URINE (UA) >=1000 mg/dL (NEGATIVE); KETONES,URINE 150 mg/dL (NEGATIVE); LEUKOCYTE ESTERASE ,URINE NEGATIVE Leu/uL (NEGATIVE); NITRATE,URINE NEGATIVE (NEGATIVE); OCCULT BLOOD,URINE NEGATIVE (NEGATIVE); PH,URINE 5.5 (5.0-8.0); PROTEIN,URINE 50 mg/dL (NEGATIVE); UROBILINOGEN,URINE 0.2 mg/dL (0.2-1.0)
[2022-08-26] MEDS ORDERED: KETOROLAC 60 MG VIAL (30MG/ML) IM ONE (12:00)
[2022-08-26 12:04] LABS: BACTERIA,URINE RARE /HPF (None Seen); MUCUS,URINE RARE LPF (None Seen); SQUAMOUS EPITHELIAL CELL,UR RARE /HPF (0-2); YEAST,URINE BUDDING FEW /HPF (None Seen)
[2022-08-26 12:05] LABS: CREATININE 0.8 mg/dL (0.5-1.5); POTASSIUM 3.8 mmol/L (3.5-5.1)
[2022-08-26 12:08] LABS: ALBUMIN 3.8 g/dL (3.5-5.0); TOTAL PROTEIN, SERUM 8.4 g/dL (6.0-8.3)
[2022-08-26 12:17] LABS: MEAN CORPUSCULAR HEMOGLOBIN 33.6 pg (27.0-33.0); MEAN CORPUSCULAR VOLUME 86.2 fL (79-99); RED CELL DISTRIBUTION WIDTH 13.1 % (11.0-15.5)
[2022-08-26 14:13] VITALS: BP 125/78
== END 2022-08-26 14:18 | disposition home or self-care (01) ==
LOC: EDH 10:03
DX: M54.50 Low back pain, unspecified (principal); E11.9 Type 2 diabetes mellitus without complications; Z79.899 Other long term (current) drug therapy
CPT/HCPCS: 99284; 80053; 85025; 81001; 36415; 72100; 96372; J1885

== ENCOUNTER 2023-03-29 18:09 | Emergency (ER) | payer OTHER ==
[~2023-03-29] VITALS: Ht 167.6 cm; Wt 87.5 kg
[~2023-03-29 18:09] MED LIST changes: -AMOX1TAB16 PO; +ATOR40TA69 PO; -ATOR40TA71 PO; +INSU100I26 SQ; +INSU200I SQ; -OMEG1CAP31 PO
[2023-03-29 18:26] VITALS: BP 132/77; PULSE 108; RESP 16; O2SAT 98
[2023-03-29 19:11] LABS: BASOPHILS # (AUTO) 0.04 K/uL (0.00-0.20); BASOPHILS % (AUTO) 0.5 % (0.0-5.0); EOSINOPHILS # (AUTO) 0.04 K/uL (0.00-0.70); EOSINOPHILS % (AUTO) 0.5 % (0.0-8.0); HEMATOCRIT 45.3 % (42-54); IMMATURE GRANULOCYTE ABSOLUTE 0.07 K/uL (0-1); LYMPHOCYTES # (AUTO) 2.4 K/uL (1.0-4.8); LYMPHOCYTES % (AUTO) 27.3 % (21.0-51.0); MEAN CORPUSCULAR HEMOGLOBIN 31.7 pg (27.0-33.0); MEAN CORPUSCULAR HGB CONC 37.1 g/dL (32.0-36.0); MEAN CORPUSCULAR VOLUME 85.5 fL (79-99); MONOCYTES # (AUTO) 0.5 K/uL (0.1-1.0); MONOCYTES % (AUTO) 5.4 % (3.0-13.0); NEUTROPHILS # (AUTO) 5.7 K/uL (1.8-7.7); NEUTROPHILS % (AUTO) 65.5 % (40.0-77.0); PLATELET COUNT (AUTO) 190 K/uL (130-400); RED CELL DISTRIBUTION WIDTH 12.9 % (11.0-15.5); WHITE BLOOD COUNT (AUTO) 8.6 K/uL (4.8-10.8)
[2023-03-29 19:19] LABS: CREATININE 0.8 mg/dL (0.5-1.5); POTASSIUM 4.9 mmol/L (3.5-5.1)
[2023-03-29 22:56] LABS: APPEARANCE,URINE CLEAR (CLEAR); BILIRUBIN,URINE NEGATIVE (NEGATIVE); COLOR,URINE LIGHT-YELLOW (YELLOW); GLUCOSE, URINE (UA) >=1000 mg/dL (NEGATIVE); KETONES,URINE 10 mg/dL (NEGATIVE); LEUKOCYTE ESTERASE ,URINE NEGATIVE Leu/uL (NEGATIVE); NITRATE,URINE NEGATIVE (NEGATIVE); OCCULT BLOOD,URINE NEGATIVE (NEGATIVE); PH,URINE 5.5 (5.0-8.0); PROTEIN,URINE 10 mg/dL (NEGATIVE); UROBILINOGEN,URINE 0.2 mg/dL (0.2-1.0)
[2023-03-29 22:57] LABS: ADD UA MICROSCOPIC YES
[2023-03-29 22:58] LABS: RBC,URINE 0-1 /HPF (0-1); WBC,URINE 0-1 /HPF (0-1)
[2023-03-29 22:59] LABS: BACTERIA,URINE None Seen /HPF (None Seen); SQUAMOUS EPITHELIAL CELL,UR Rare /HPF (0-2); YEAST,URINE BUDDING Rare /HPF (None Seen)
[2023-03-29] MEDS ORDERED: 0.9%NACL 1000ML 1,000 ML IV ONE (23:00)
[2023-03-30] MEDS ORDERED: 0.9%NACL 1000ML 1,000 ML IV ONE
[2023-03-30] MEDS ORDERED: PANT40TA55 PO (01:17)
== END 2023-03-30 01:43 | disposition home or self-care (01) ==
LOC: EDH 18:09
DX: E11.65 Type 2 diabetes mellitus with hyperglycemia (principal); K29.70 Gastritis, unspecified, without bleeding; E86.0 Dehydration; Z79.899 Other long term (current) drug therapy
CPT/HCPCS: 99283; 96360; 80048; 83690; 85025; 82948; 81001; 36415; J7030 ×2

== ENCOUNTER 2023-06-04 18:03 | Emergency (ER) | payer OTHER ==
[~2023-06-04] VITALS: Ht 167.6 cm; Wt 87.5 kg
[~2023-06-04 18:03] MED LIST changes: +PANT40TA55 PO
[2023-06-04] MEDS ORDERED: FLUORESCEIN SODIUM 1 STRIP STRIP OP SCH (19:00)
[2023-06-04] MEDS ORDERED: TETRACAINE HCL 0.5% 4 ML OPHTH SOLN OP SCH (19:00)
[2023-06-04 20:43] VITALS: BP 146/89; PULSE 100; RESP 18; O2SAT 100
[2023-06-04] MEDS ORDERED: MOXIOS OD (20:43)
== END 2023-06-04 20:49 | disposition home or self-care (01) ==
LOC: EDH 18:03
DX: H10.9 Unspecified conjunctivitis (principal); E11.9 Type 2 diabetes mellitus without complications; I10 Essential (primary) hypertension; Z79.4 Long term (current) use of insulin; Z79.899 Other long term (current) drug therapy

== ENCOUNTER 2023-08-09 10:52 | Emergency (ER) | payer OTHER ==
[~2023-08-09] VITALS: Ht 167.6 cm; Wt 81.2 kg
[~2023-08-09 10:52] MED LIST changes: +MOXIOS OD
[2023-08-09] MEDS ORDERED: DICYCLOMINE HCL 10 MG/5 ML ML PO ONE (11:30)
[2023-08-09] MEDS ORDERED: 0.9%NACL 1000ML 1,000 ML IV ONE (11:30)
[2023-08-09] MEDS ORDERED: FAMOTIDINE 20MG VIAL IV ONE (11:30)
[2023-08-09] MEDS ORDERED: ONDANSETRON 4MG INJ IVP ONE (11:30)
[2023-08-09] MEDS ORDERED: LIDOCAINE HCL 2% VISCOUS 15 ML UDCUP PO ONE (11:30)
[2023-08-09] MEDS ORDERED: MAG/ALUM/SIMETH 30 ML UDCUP PO ONE (11:30)
[2023-08-09 11:47] LABS: BASOPHILS # (AUTO) 0.04 K/uL (0.00-0.20); BASOPHILS % (AUTO) 0.5 % (0.0-5.0); EOSINOPHILS # (AUTO) 0.02 K/uL (0.00-0.70); EOSINOPHILS % (AUTO) 0.2 % (0.0-8.0); HEMATOCRIT 43.6 % (42-54); LYMPHOCYTES % (AUTO) 22.9 % (21.0-51.0); MEAN CORPUSCULAR HEMOGLOBIN 31.1 pg (27.0-33.0); MEAN CORPUSCULAR HGB CONC 35.8 g/dL (32.0-36.0); MEAN CORPUSCULAR VOLUME 86.9 fL (79-99); MONOCYTES # (AUTO) 0.4 K/uL (0.1-1.0); NEUTROPHILS # (AUTO) 6.2 K/uL (1.8-7.7); NEUTROPHILS % (AUTO) 71.3 % (40.0-77.0); PLATELET COUNT (AUTO) 198 K/uL (130-400); RED BLOOD CELL COUNT(AUTO) 5.02 MIL/uL (4.50-6.20); RED CELL DISTRIBUTION WIDTH 13.2 % (11.0-15.5); WHITE BLOOD COUNT (AUTO) 8.7 K/uL (4.8-10.8)
[2023-08-09 12:02] LABS: CREATININE 0.6 mg/dL (0.5-1.5); POTASSIUM 4.9 mmol/L (3.5-5.1)
[2023-08-09 12:08] LABS: ALBUMIN 3.7 g/dL (3.5-5.0); BILIRUBIN,TOTAL 0.7 mg/dL (0.2-1.0); TOTAL PROTEIN, SERUM 8.1 g/dL (6.0-8.3)
[2023-08-09 12:12] LABS: APPEARANCE,URINE CLEAR (CLEAR); BILIRUBIN,URINE NEGATIVE (NEGATIVE); COLOR,URINE COLORLESS (YELLOW); GLUCOSE, URINE (UA) >=1000 mg/dL (NEGATIVE); KETONES,URINE >=80 mg/dL (NEGATIVE); LEUKOCYTE ESTERASE ,URINE NEGATIVE Leu/uL (NEGATIVE); NITRATE,URINE NEGATIVE (NEGATIVE); OCCULT BLOOD,URINE NEGATIVE (NEGATIVE); PROTEIN,URINE NEGATIVE (NEGATIVE); UROBILINOGEN,URINE 0.2 mg/dL (0.2-1.0)
[2023-08-09 12:14] LABS: ADD UA MICROSCOPIC YES
[2023-08-09 12:24] LABS: RBC,URINE 0-1 /HPF (0-1); SQUAMOUS EPITHELIAL CELL,UR RARE /HPF (0-2); WBC,URINE 0-1 /HPF (0-1)
[2023-08-09] MEDS ORDERED: IOHEXOL-350 75 ML VIAL IV ONE (14:28)
[2023-08-09] MEDS ORDERED: POLY17PO4 PO (15:18)
[2023-08-09 15:49] VITALS: BP 126/78; PULSE 78; RESP 18; O2SAT 99
== END 2023-08-09 15:53 | disposition home or self-care (01) ==
LOC: EDH 10:52
DX: K59.00 Constipation, unspecified (principal); E11.9 Type 2 diabetes mellitus without complications; I10 Essential (primary) hypertension; Z79.4 Long term (current) use of insulin; Z79.899 Other long term (current) drug therapy
CPT/HCPCS: 99285; 74177; 96374; 96361; 96375; 80053; 83690; 85025; 81001; 36415; J3490; J7030; J2405; Q9967

== ENCOUNTER 2024-02-17 21:38 | Emergency (ER) | payer OTHER ==
[~2024-02-17] VITALS: Ht 167.6 cm; Wt 81.6 kg
[~2024-02-17 21:38] MED LIST changes: +POLY17PO4 PO
[2024-02-17 22:10] LABS: BASOPHILS # (AUTO) 0.03 K/uL (0.00-0.20); BASOPHILS % (AUTO) 0.3 % (0.0-5.0); EOSINOPHILS # (AUTO) 0.02 K/uL (0.00-0.70); EOSINOPHILS % (AUTO) 0.2 % (0.0-8.0); HEMATOCRIT 45.3 % (42-54); IMMATURE GRANULOCYTE ABSOLUTE 0.03 K/uL (0-1); LYMPHOCYTES % (AUTO) 22.9 % (21.0-51.0); MEAN CORPUSCULAR HEMOGLOBIN 31.1 pg (27.0-33.0); MEAN CORPUSCULAR HGB CONC 36.9 g/dL (32.0-36.0); MEAN CORPUSCULAR VOLUME 84.4 fL (79-99); MONOCYTES # (AUTO) 0.4 K/uL (0.1-1.0); MONOCYTES % (AUTO) 4.6 % (3.0-13.0); NEUTROPHILS # (AUTO) 6.2 K/uL (1.8-7.7); NEUTROPHILS % (AUTO) 71.7 % (40.0-77.0); PLATELET COUNT (AUTO) 179 K/uL (130-400); RED BLOOD CELL COUNT(AUTO) 5.37 MIL/uL (4.50-6.20); RED CELL DISTRIBUTION WIDTH 12.6 % (11.0-15.5); WHITE BLOOD COUNT (AUTO) 8.7 K/uL (4.8-10.8)
[2024-02-17] MEDS: PANTOPRAZOLE 40 MG/VIAL IVP ONE (22:17)
[2024-02-17 22:24] LABS: CREATININE 0.8 mg/dL (0.5-1.3); POTASSIUM 4.8 mmol/L (3.5-5.1)
[2024-02-17] MEDS: LIDOCAINE HCL 2% VISCOUS 15 ML UDCUP PO ONE (23:51)
[2024-02-17] MEDS: MAG/ALUM/SIMETH 30 ML UDCUP PO ONE (23:51)
[2024-02-18] MEDS ORDERED: PANT40TA55 PO (00:03)
[2024-02-18 00:15] VITALS: BP 114/69; PULSE 89; RESP 16; O2SAT 99
== END 2024-02-18 00:20 | disposition home or self-care (01) ==
LOC: EDH 21:38
DX: K21.9 Gastro-esophageal reflux disease without esophagitis (principal); E11.9 Type 2 diabetes mellitus without complications; E78.00 Pure hypercholesterolemia, unspecified; I10 Essential (primary) hypertension; Z79.4 Long term (current) use of insulin; Z79.899 Other long term (current) drug therapy
CPT/HCPCS: 99285; 96374; 71045; 82550; 84484 ×2; 80048; 85025; 36415; 93005; J2470

== ENCOUNTER 2024-02-20 12:03 | Emergency (ER) | payer OTHER ==
[~2024-02-20] VITALS: Ht 167.6 cm; Wt 82.6 kg
[2024-02-20] MEDS: LACTATED RINGERS 1000ML 1,000 ML IV ONE (12:34)
[2024-02-20 13:00] LABS: BASOPHILS # (AUTO) 0.01 K/uL (0.00-0.20); BASOPHILS % (AUTO) 0.2 % (0.0-5.0); EOSINOPHILS # (AUTO) 0.02 K/uL (0.00-0.70); EOSINOPHILS % (AUTO) 0.3 % (0.0-8.0); HEMATOCRIT 41.7 % (42-54); IMMATURE GRANULOCYTE ABSOLUTE 0.03 K/uL (0-1); LYMPHOCYTES # (AUTO) 1.4 K/uL (1.0-4.8); LYMPHOCYTES % (AUTO) 22.5 % (21.0-51.0); MEAN CORPUSCULAR HEMOGLOBIN 30.3 pg (27.0-33.0); MEAN CORPUSCULAR HGB CONC 35.5 g/dL (32.0-36.0); MEAN CORPUSCULAR VOLUME 85.5 fL (79-99); MONOCYTES # (AUTO) 0.3 K/uL (0.1-1.0); MONOCYTES % (AUTO) 4.8 % (3.0-13.0); NEUTROPHILS # (AUTO) 4.5 K/uL (1.8-7.7); NEUTROPHILS % (AUTO) 71.7 % (40.0-77.0); PLATELET COUNT (AUTO) 157 K/uL (130-400); RED BLOOD CELL COUNT(AUTO) 4.88 MIL/uL (4.50-6.20); RED CELL DISTRIBUTION WIDTH 12.5 % (11.0-15.5); WHITE BLOOD COUNT (AUTO) 6.3 K/uL (4.8-10.8)
[2024-02-20 13:07] LABS: APPEARANCE,URINE CLEAR (CLEAR); BILIRUBIN,URINE NEGATIVE (NEGATIVE); COLOR,URINE COLORLESS (YELLOW); GLUCOSE, URINE (UA) >=1000 mg/dL (NEGATIVE); KETONES,URINE 20 mg/dL (NEGATIVE); LEUKOCYTE ESTERASE ,URINE NEGATIVE Leu/uL (NEGATIVE); NITRATE,URINE NEGATIVE (NEGATIVE); OCCULT BLOOD,URINE NEGATIVE (NEGATIVE); PROTEIN,URINE NEGATIVE (NEGATIVE); UROBILINOGEN,URINE 0.2 mg/dL (0.2-1.0)
[2024-02-20 13:08] LABS: ADD UA MICROSCOPIC YES
[2024-02-20 13:09] LABS: BACTERIA,URINE RARE /HPF (None Seen); SQUAMOUS EPITHELIAL CELL,UR RARE /HPF (0-2); WBC,URINE 0-1 /HPF (0-1); YEAST,URINE BUDDING RARE /HPF (None Seen)
[2024-02-20 13:20] LABS: ALBUMIN 3.4 g/dL (3.5-5.0); BILIRUBIN,TOTAL 0.6 mg/dL (0.2-1.0); CREATININE 0.8 mg/dL (0.5-1.3); MAGNESIUM 1.8 mg/dL (1.80-2.40); POTASSIUM 3.8 mmol/L (3.5-5.1); TOTAL PROTEIN, SERUM 6.6 g/dL (6.0-8.3)
[2024-02-20 13:23] LABS: ABG BASE EXCESS -3.2 mmol/L (-2.0-3.0); ABG HCO3 21.4 mmol/L (21.0-28.0); ABG OXYGEN SATURATION 82.8 % (95.0-99.0); ABG PCO2 37 mmHg (35-48); ABG PH 7.379 (7.350-7.450); PO2, ARTERIAL BG 47.5 mmHg (83.0-108.0); VENT MODE, BG RA (ROOM AIR)
[2024-02-20 13:27] LABS: CHOLESTEROL 269 mg/dL (<200); HDL CHOLESTEROL 42 mg/dL (29-71); LDL DIRECT 70 mg/dL (0-99)
[2024-02-20] MEDS: 0.9%NACL 1000ML 1,000 ML IV ONE (13:28)
[2024-02-20 13:56] LABS: TRIGLYCERIDES 718 mg/dL (30-200)
[2024-02-20] MEDS: INSULIN HUMULIN R 100 UNIT/ML 3ML IV ONE (14:24)
[2024-02-20] MEDS: HYOSCYAMINE SULFATE 0.125 MG TAB.SUBL SL ONE (14:51)
[2024-02-20] MEDS: PANTOPRAZOLE 40 MG/VIAL IVP ONE (14:51)
[2024-02-20] MEDS: ONDANSETRON 4MG INJ IVP ONE (14:51)
[2024-02-20] MEDS ORDERED: INSULIN HUMULIN R 100 UNIT/ML 3ML IV ONE (17:00)
[2024-02-20] MEDS ORDERED: ONDA-243 PO (17:44)
[2024-02-20] MEDS ORDERED: HYOS-27 SL (17:44)
[2024-02-20 17:59] VITALS: BP 133/87; PULSE 84; RESP 19; O2SAT 100
== END 2024-02-20 18:05 | disposition home or self-care (01) ==
LOC: EDH 12:03
DX: R11.2 Nausea with vomiting, unspecified (principal); E86.0 Dehydration; E11.65 Type 2 diabetes mellitus with hyperglycemia; E78.5 Hyperlipidemia, unspecified; K21.9 Gastro-esophageal reflux disease without esophagitis; I10 Essential (primary) hypertension; Z79.899 Other long term (current) drug therapy; Z79.2 Long term (current) use of antibiotics; Z79.4 Long term (current) use of insulin
CPT/HCPCS: 99285; 96361; 96374; 96375; 71045; 80061; 82550; 83735; 80053; 82803; 83690; 85025; 82948 ×4; 82010 ×2; 81001; 36415; 93005; 36600; J1815; J7120; J7030; J2405; J2470